=== PATIENT | female | born 1995 | race Caucasian/White ===

== ENCOUNTER 2021-02-18 21:00 | Emergency (ER) | payer SELFPAY ==
--- OUTSIDE RECORDS SUMMARY | 2021-02-18 21:06 | XMS REPORT | Continuity of Care Document ---
:1995 Author Organization [facility] t Address [address] [place] [address] Care Team Providers Name Role Phone Saucedo Attending Clinician Unavailable Micki PATTON Attending Clinician Unavailable Brisa LAUREANO Attending Clinician Unavailable SCAR Attending Clinician Unavailable Nurse, Urgent Attending Clinician Unavailable Scar MORRISON Attending Clinician Jonas Attending Clinician Dafne T[employer] WORKER Attending Clinician Rory MORRISON Attending Clinician Teqwimuabrisa DO Attending Clinician Singer MENDOZA Attending Clinician Germaine MORRISON Attending Clinician Thien MORRISON Attending Clinician Brianna HUIZAR Attending Clinician Unavailable CHELA COFFEY Attending Clinician Unavailable Liz TAPIA Attending Clinician Unavailable EDWARD SEWELL Attending Clinician Unavailable Chase Valadez Attending Clinician Unavailable Physician, Primary or Family Admitting Clinician Unavailabimael Valadez MD Admitting Clinician Thien MORRISON Admitting Clinician CHELA COFFEY Admitting Clinician Unavailable Gt Quiñones Admitting Clinician Unavailable Payers Payer Name Policy Type Policy Number Effective Date Expiration Date [place] [facility] [id number] 2017 CHOICE MEDICAID 00:00:00 BCBS [facility] - [id number] 2017 OUT OF STATE 00:00:00 Problems Condition Condition Condition Status Onset Resolution Last Treating Co mments Source Name Details Category Date Date Treatment Clinician Date Abdominal Abdominal Disease Active Uni vers pain pain 6-25 ity of 00:00: [place] [facility] Intractabl Intractabl Disease Active U nivers e pain e pain 5-12 ity of 00:00: [place] 00 Medical Branch Status Status Disease Active 2018- Univers post post 2-12 ity of repeat low repeat [place] 00:[place] transverse transverse 00 Me dical Branch section section Status Status Disease Active 2018- Univers post tubal post tubal 2-12 it y of ligation ligation 00:00: [place] at time of at time of 00 Me dical delivery, delivery, Bran ch current current hospitaliz hospitaliz ation ation 39 weeks 39 weeks Disease Active Unive rs gestation gestation 2-12 ity of of of 00:00: [place] 00 [facility] Disease Active Uni vers complicate complicate 2-12 it y of d by d by 00:00: [place] noncomplia noncomplia 00 Me dical nce, nce, Branch antepartum antepartum Maternal Maternal Disease Active Unive rs care due care due 2-11 ity of to low to low 00:00: [place] transverse transverse 00 Me dical uterine uterine Branch scar from scar from previous previous delivery delivery Generalize Generalize Disease Active 2019-0 U nivers d d 1-18 [place] abdominal abdominal [place] 00 [place] Nausea & Nausea & Disease Active 2018- Unive rs vomiting vomiting 1-18 ity of 00:00: [place] 00 Medical Branch 35 weeks 35 weeks Disease Active 2019- Unive rs gestation gestation 1-17 ity of of of 00:00: [place] 00 Medi juan daniel Branch Back pain Back pain Disease Active 2019-0 Uni vers affecting affecting 1-17 [place] of [place] in third in third 00 Medica l trimester trimester Bran ch Gastroesop Gastroesop Disease Active 2019-0 U nivers hageal hageal 1-17 ity of reflux reflux 00:00: [place] during during 00 Medical Bran ch in third in third trimester, trimester, antepartum antepartum Previous Previous Disease Active 2019-0 Unive rs 1-15 ity of delivery delivery 00:00: [place] affecting affecting 00 [facility] Bran ch Disease Active 2019-0 Univers uterine uterine 1-15 ity of contractio contractio 00:[place] 00 Medical Branch Multiparit Multiparit Disease Active 2019-0 U nivers y y 1-15 ity of 00:00: [place] [address] Medical Branch Insufficie Insufficie Disease Active 2019-0 U nivers nt nt 1-15 ity of 00:00: [place] care in care in 00 Medical third third Branch trimester trimester Obesity Obesity Disease Active 2018- Univers (BMI (BMI 2-17 ity of 30-39.9) 30-39.9) 00:00: [place] 00 Medical Branch Lower Lower Disease Active 2018-0 Univers abdominal abdominal 6-20 ity of pain pain 00:00: [place] 00 Medical Branch Nausea and Nausea and Disease Active 2018-0 U nivers vomiting vomiting 6-20 ity of 00:00: [place] [address] Medical Branch Allergies, Adverse Reactions, Alerts Allergy Allergy Status Severity Reaction(s) Onset Inactive Treating Comm ents Source Name Type Date Date Clinician No Known DA Active U [facility]-05 Clear s 00:00: [place] 00 [facility] No Known DA Active U 0 [facility] Allergie 5-05 Clear s 00:00: [place] 00 [facility] No Known DA Active U 2020-0 [facility] Allergie 2- Clear s 00:00: [place] 00 [facility] No Known DA Active U 0 [facility] Allergie 2-01 Clear s 00:00: [place] 00 [facility] No Known DA Active U [facility] Allergie 8-03 Clear s 00:00: [place] 00 [facility] No Known DA Active U [facility] Allergie 8-03 Clear s 00:00: [place] 00 [facility] NO KNOWN Drug Active Univers ALLERGIE Class ity of S [facility] Social History Social Habit Start Date Stop Date Quantity Comments Source Exposure to Not sure [facility]-CoV-2 [facility] (event) [place] Tobacco Comment 2020-08-09 2020-08-09 4-5 ocassionally Uni versity of 00:00:00 00:00:00 per day [facility] Tobacco use and 2020-08-09 2020-08-09 Never used Universit y of exposure 00:00:00 00:00:00 [facility] Alcohol intake 2020-08-09 2020-08-09 Current drinker of Un iversity of 00:00:00 00:00:00 alcohol (finding) [facility] Sex Ass[birth year] At [birth year] Universit y of 00:00:00 00:00:00 [facility] Smoking Status Start Date Stop Date Source Current some day smoker 2020-08-09 00:00:00 [facility] ersity of [facility] Never smoker [facility] Medications Ordered Filled Start Stop Current Ordering Indication Dosage Frequency Signature Comments Components Source Medication Medication Date Date Medication? Clinician (SIG) Name Name SERTraline Yes 50mg 50 mg, Unive rs (ZOLOFT) 08-10 Oral, ity of tablet 50 14:00: DAILY, [place] mg 00 First dose Medical on Sat Branch 08/10/20 at 0900, Until Discontinu ed, Routine morpHINE Yes 2mg 2 mg, Slow Uni vers injection 2 08-10 IV Push, ity of mg 02:04: Q4HPRN, [place] 48 Starting Medical Fri Branch 08/09/20 at 2104, Until Discontinu ed, Routine, Pain (scale 7-10) pantoprazol Yes 40mg 40 mg, Univ ers e 08-10 Slow IV ity of (PROTONIX) 01:00: Push, [place] injection 00 Q12H, Medical 40 mg First dose Branch (after last reorder) on Wed08/09/20 at 2000, Until Discontinu ed, Routine carvediloL Yes 6.25mg 6.25 mg, U nivers (COREG) 6-25 Oral, BID ity of tablet 6.25 22:00: MEALS, [place] mg 00 First dose Medical on Wed Branch 08/09/20 at 1700, Until Discontinu ed, Routine sucralfate 0 Yes 1g 1 g, Oral, U nivers (CARAFATE) 08-09 AC+HS, ity of tablet 1 g 21:30: First dose [place] 00 on Wed Medical 08/09/20 at Branch 1630, Until Discontinu ed, Routine NaCl 0.9% 0 2020- No 1000mL at 125 Uni vers (NS) IV 08-09 06-26 mL/hr, IV ity of infusion 20:00: 02:08 Infusion, [place] 1,000 mL 00 :45 CONTINUOUS Medic al , Starting Branch 08/09/20 at 1500, Until Wed08/09/20 at 2108, Routine ondansetron Yes 4mg 4 mg, Slow Univers (ZOFRAN 08-09 IV Push, ity of (PF)) 19:55: Q6HPRN, [place] injection 4 19 Starting Medi juan daniel mg Fri Branch 08/09/20 at 1455, Until Discontinu ed, Routine, Nausea and Vomiting (N/V) HYDROcodone 0 2020- No 1{tbl} 1 tablet, Univers -acetaminop 08-09 Oral, ity of hen (NORCO 19:55: 19:54 Q6HPRN, [place] 5) 5-325 mg 10 :10 Starting Medi juan daniel tablet 1 Fri Branch tablet 08/09/20 at 1455, Until 08/11/20 at 1454, Routine, Pain (scale 4-6) acetaminoph 0 Yes 650mg 650 mg, Un kimmy en 08-09 Oral, ity of (TYLENOL) 19:55: Q6HPRN, [place] tablet 650 03 Starting Medic al mg Fri Branch 08/09/20 at 1455, Until Discontinu ed, Routine, Pain (scale 1-3) dicyclomine 0 Yes 10mg 10 mg, Univ ers (BENTYL) 08-09 Oral, ity of capsule 10 19:47: Q8HPRN, [place] mg 15 Starting Medical Fri Branch 08/09/20 at 1447, Until Discontinu ed, Routine, Abdominal pain cyclobenzap 2021-0 Yes 5mg 5 mg, Unive rs rine 08-09 Oral, ity of (FLEXERIL) 19:47: Q8HPRN, [place] tablet 5 mg 12 Starting Medi juan daniel Fri Branch 08/09/20 at 1447, Until Discontinu ed, Routine, Muscle Spasms, back pain proMETHazin 2020- No 12.5mg 12.5 mg, Univers e 08-09 IV ity of (PHENERGAN) 19:45: 19:45 Piggyback, [place] 12.5 mg in 00 :00 ONCE, 1 Medica l NaCl 0.9% dose, Fri Branc h (NS) 50 mL 08/09/20 at piggyback 1445, 50 mL diphenhydrA 2020- No 25mg 25 mg, Uni vers MINE 08-09 Slow IV ity of (BENADRYL) 19:15: 19:15 Push, [place] injection 00 :00 ONCE, 1 Medical 25 mg dose, Fri Branch 08/09/20 at 1415, STAT iopamidol 2020- No [id number] 100mL 100 mL, Univers (ISOVUE 08-09 Intravenou ity o f 370-500 mL) 19:15: 17:55 s, ONCE, 1 [place] injection 00 :00 dose, Fri Medic al 100 mL 08/09/20 at Branch 1415, Routine pantoprazol 2020- No 40mg 40 mg, Uni vers e 08-09 Slow IV ity of (PROTONIX) 18:45: 18:46 Push, [place] injection 00 :00 ONCE, 1 Medical 40 mg dose, Fri Branch 08/09/20 at 1345, [place] morpHINE 2020- No 4mg 4 mg, Slow Un kimmy injection 4 08-09 IV Push, ity of mg 18:45: 18:46 ONCE, 1 [place] 00 :00 dose, Wed Medical 08/09/20 at Branch 1345, STAT LORazepam 2020- No 1mg 1 mg, Slow U nivers (ATIVAN) 08-09 IV Push, ity of injection 1 17:15: 16:46 ONCE, 1 [place] mg 00 :00 dose, Fri Medical 08/09/20 at Branch 1215, STAT dicyclomine Yes 20mg 20 mg, Univ ers (BENTYL) 08-09 Intramuscu ity o f injection 17:00: lar, QID, [place] as 20 mg 00 First dose Medical on Wed [place] 08/09/20 at 1200, Until Discontinu ed, Routine ketorolac 2020- No 30mg 30 mg, Unive rs (TORADOL) 08-09 Intramuscu ity of injection 16:30: 17:34 lar, ONCE, [place] 30 mg 00 :00 1 dose, Medical Wed [place] 08/09/20 at 1130, WILMAN
Fa culty member approving Restricted medication : SAGE LEOS metoclopram 2020- No 10mg 10 mg, Uni vers toni HCl 08-09 Slow IV ity of (REGLAN) 16:15: 16:47 Push, [place] injection 00 :00 ONCE, 1 Medical 10 mg dose, Wed [place] 08/09/20 at 1115, WILMAN pantoprazol 2020- No 40mg 40 mg, Uni vers e 08-09 Slow IV ity of (PROTONIX) 16:15: 16:46 Push, [place] injection 00 :00 ONCE, 1 Medical 40 mg dose, Wed [place] 08/09/20 at 1115, WILMAN NaCl 0.9% 2020- No 1000mL at 999 Uni vers (NS) bolus 08-09 mL/hr, ity of infusion 16:15: 17:34 1,000 mL, [place] 1,000 mL 00 :00 IV Medical Infusion, Branch ONCE, 1 dose, Wed08/09/20 at 1115, [place] dicyclomine Yes 10mg 10 mg, Univ ers (BENTYL) 16 Oral, QID, ity o f capsule 10 13:00: First dose [place] mg 00 on Wed [facility] 07/31/20 at Branch 0800, Until Discontinu ed, Routine haloperidol 2020- No 2.5mg 2.5 mg, U nivers lactate 07-31-16 Intravenou ity o f (HALDOL) 05:30: 04:21 s, ONCE, 1 [place] injection 00 :00 dose, Wed Medic al 2.5 mg 07/31/20 at Branch 0030, STAT ketorolac 2020- No 15mg 15 mg, Unive rs (TORADOL) 07-31 Slow IV ity of injection 05:00: 04:59 Push, Q6H, [place] 15 mg 00 :00 4 doses, Medical First dose Branch on Wed07/31/20 at 0000, Last dose on Wed07/31/20 at 1800, Routine
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 Restricted medication : RODO YUN diphenhydrA 2020- No 50mg 50 mg, Uni vers MINE 07-31 Slow IV ity of (BENADRYL) 04:00: 02:55 Push, [place] injection 00 :00 ONCE, 1 Medical 50 mg dose, [facility] 07/30/20 at 2300, STAT haloperidol 2020- No 2.5mg 2.5 mg, U nivers lactate 07-31 Intravenou ity o f (HALDOL) 03:45: 02:55 s, ONCE, 1 [place] injection 00 :00 dose, [facility] Medic al 2.5 mg 07/30/20 at Branch 2245, STAT sodium Yes 5mL 5 mL, Univers chloride 07-31 Intravenou ity o f (NS) 02:39: s, PRN, [place] injection 5 06 Starting Medi juan daniel mL [facility] 07/30/20 at 2139, Until Discontinu ed, Routine, IV line flushing sucralfate Yes [id number] 1g Take 1 Univers 1 gram 6-16 tablet by ity of tablet 00:00: mouth [place] 00 before Medical meals and Branch at bedtime. dicyclomine Yes [id number] 10mg Take 1 Univers 10 mg 6-16 capsule by ity of capsule 00:00: mouth [place] 00 every 8 Medical (eight) Branch hours as needed for Abdominal pain. ondansetron Yes [id number] 4mg Take 1 Univers 4 mg 6-16 tablet by ity of disintegrat 00:00: mouth [place] ing tablet 00 every 8 Medica l (eight) Branch hours as needed for Nausea and Vomiting (N/V). ciprofloxac 2020-0 Yes [id number] 500mg Take 1 Univers in HCl 500 6-16 tablet by ity of mg tablet 00:00: mouth (two) Medical times Branch daily. metroNIDAZO 2020-0 Yes [id number] 500mg Take 1 Univers LE 500 mg 6-16 tablet by ity o f tablet 00:00: mouth (two) Medical times Branch daily. sucralfate 2020-0 Yes [id number] 1g Take 1 Univers 1 gram 6-16 tablet by ity of tablet 00:00: mouth 00 before Medical meals and Branch at bedtime. dicyclomine 2020-0 Yes [id number] 10mg Take 1 Univers 10 mg 6-16 capsule by ity of capsule 00:00: mouth [place] 00 every 8 Medical (eight) Branch hours as needed for Abdominal pain. ondansetron 2020-0 Yes [id number] 4mg Take 1 Univers 4 mg 6-16 tablet by ity of disintegrat 00:00: mouth [place] ing tablet 00 every 8 Medica l (eight) Branch hours as needed for Nausea and Vomiting (N/V). ciprofloxac 2020-0 Yes [id number] 500mg Take 1 Univers in HCl 500 6-16 tablet by ity of mg tablet 00:00: mouth (two) Medical times Branch daily. metroNIDAZO 2020-0 Yes [id number] 500mg Take 1 Univers LE 500 mg 6-16 tablet by ity o f tablet 00:00: mouth (two) Medical times Branch daily. sucralfate 2020-0 Yes [id number] 1g Take 1 Univers 1 gram 6-16 tablet by ity of tablet 00:00: mouth [place] 00 before Medical meals and Branch at bedtime. dicyclomine 2020-0 Yes [id number] 10mg Take 1 Univers 10 mg 6-16 capsule by ity of capsule 00:00: mouth [place] 00 every 8 Medical (eight) Branch hours as needed for Abdominal pain. ondansetron 2020-0 Yes [id number] 4mg Take 1 Univers 4 mg 6-16 tablet by ity of disintegrat 00:00: mouth [place] ing tablet 00 every 8 Medica l (eight) Branch hours as needed for Nausea and Vomiting (N/V). ciprofloxac 2020-0 Yes [id number] 500mg Take 1 Univers in HCl 500 6-16 tablet by ity of mg tablet 00:00: mouth (two) Medical times Branch daily. metroNIDAZO 2020-0 Yes [id number] 500mg Take 1 Univers LE 500 mg 6-16 tablet by ity o f tablet 00:00: mouth (two) Medical times Branch daily. sucralfate 2020-0 Yes [id number] 1g Take 1 Univers 1 gram 6-16 tablet by ity of tablet 00:00: mouth 00 before Medical meals and Branch at bedtime. dicyclomine 2020-0 Yes [id number] 10mg Take 1 Univers 10 mg 6-16 capsule by ity of capsule 00:00: mouth [place] 00 every 8 Medical (eight) Branch hours as needed for Abdominal pain. ondansetron 2020-0 Yes [id number] 4mg Take 1 Univers 4 mg 6-16 tablet by ity of disintegrat 00:00: mouth [place] ing tablet 00 every 8 Medica l (eight) Branch hours as needed for Nausea and Vomiting (N/V). ciprofloxac 2020-0 Yes [id number] 500mg Take 1 Univers in HCl 500 6-16 tablet by ity of mg tablet 00:00: mouth (two) Medical times Branch daily. metroNIDAZO 2020-0 Yes [id number] 500mg Take 1 Univers LE 500 mg 6-16 tablet by ity o f tablet 00:00: mouth (two) Medical times Branch daily. sucralfate 2020-0 Yes [id number] 1g Take 1 Univers 1 gram 6-16 tablet by ity of tablet 00:00: mouth [place] 00 before Medical meals and Branch at bedtime. dicyclomine 2020-0 Yes [id number] 10mg Take 1 Univers 10 mg 6-16 capsule by ity of capsule 00:00: mouth [place] 00 every 8 Medical (eight) Branch hours as needed for Abdominal pain. ondansetron 2020-0 Yes [id number] 4mg Take 1 Univers 4 mg 6-16 tablet by ity of disintegrat 00:00: mouth [place] ing tablet 00 every 8 Medica l (eight) Branch hours as needed for Nausea and Vomiting (N/V). ciprofloxac Yes [id number] 500mg Take 1 Univers in HCl 500 6-16 tablet by ity of mg tablet 00:00: mouth 2 [place] 00 (two) Medical times Branch daily. metroNIDAZO Yes [id number] 500mg Take 1 Univers LE 500 mg 6-16 tablet by ity o f tablet 00:00: mouth 2 [place] (two) Medical times Branch daily. SERTraline Yes 50mg 50 mg, Unive rs (ZOLOFT) 5-13 Oral, ity of tablet 50 14:00: DAILY, [place] mg 00 First dose Medical on [facility] Branch 06/27/20 at 0900, Until Discontinu ed, Routine omeprazole Yes 20mg 20 mg, Unive rs (PRILOSEC) 5-13 Oral, ity of capsule 20 14:00: DAILY, [place] mg 00 First dose Medical on [facility] Branch 06/27/20 at 0900, Until Discontinu ed, Routine ondansetron Yes 4mg 4 mg, Slow Univers (ZOFRAN 5-13 IV Push, ity of (PF)) 03:02: Q4HPRN, [place] injection 4 34 Starting Medi juan daniel mg Wed Branch 06/26/20 at 2202, Until Discontinu ed, Routine, Nausea and Vomiting (N/V) ketorolac 15mg 15 mg, Unive rs (TORADOL) 5-13 05-13 Slow IV ity of injection 00:31: 18:42 Push, [place] 15 mg 14 :00 Q6HPRN, 4 Medical doses, Branch Starting 06/26/20 at 1931, Until Discontinu ed, Routine, Pain (scale 7-10)
F aculty member approving Restricted medication : HOSREDCLC HYDROcodone Yes 1{tbl} 1 tablet, Univers -acetaminop 5-13 Oral, ity of hen (NORCO) 00:30: Q4HPRN, [place] 10-325 mg 38 Starting Medica l tablet 1 Wed Branch tablet 06/26/20 at 1930, Until Discontinu ed, Routine, Pain (scale 4-6) carvediloL Yes [id number] 6.25mg Take 1 Univers 6.25 mg 5-13 tablet by ity of tablet 00:00: mouth [place] (two) Medical times Branch daily with meals. carvediloL 2020-0 Yes [id number] 6.25mg Take 1 Univers 6.25 mg 5-13 tablet by ity of tablet 00:00: mouth 2 (two) Medical times Branch daily with meals. carvediloL 2020-0 Yes [id number] 6.25mg Take 1 Univers 6.25 mg 5-13 tablet by ity of tablet 00:00: mouth [place] (two) Medical times Branch daily with meals. carvediloL 2020-0 Yes [id number] 6.25mg Take 1 Univers 6.25 mg 5-13 tablet by ity of tablet 00:00: mouth [place] (two) Medical times Branch daily with meals. carvediloL 2020-0 Yes [id number] 6.25mg Take 1 Univers 6.25 mg 5-13 tablet by ity of tablet 00:00: mouth [place] (two) Medical times Branch daily with meals. carvediloL 2020-0 Yes [id number] 6.25mg Take 1 Univers 6.25 mg 5-13 tablet by ity of tablet 00:00: mouth [place] (two) Medical times Branch daily with meals. NaCl 0.9% 0 Yes 1000mL at 125 Univ ers (NS) IV 5-12 mL/hr, IV ity of infusion 20:00: Infusion, [place] 1,000 mL 00 CONTINUOUS Medic al , Starting Branch Wed06/26/20 at 1500, Until Discontinu ed, Routine carvediloL 2020-0 Yes 6.25mg 6.25 mg, U nivers (COREG) 5-12 Oral, BID ity of tablet 6.25 19:45: MEALS, [place] mg 00 First dose Medical on Wed Branch 06/26/20 at 1445, Until Discontinu ed, Routine cyclobenzap 2020-0 Yes 5mg 5 mg, Unive rs rine 5-12 Oral, ity of (FLEXERIL) 19:39: Q8HPRN, [place] tablet 5 mg 44 Starting Medi juan daniel Wed Branch 06/26/20 at 1439, Until Discontinu ed, Routine, Muscle Spasms, back pain bisacodyL 2020-0 Yes 10mg 10 mg, Univer s (DULCOLAX) 06-26 Rectal, ity of suppository 19:39: QDAILYPRN, [place] 10 mg 44 Starting Medical [facility] 06/26/20 at 1439, Until Discontinu ed, Routine, Constipati on HYDROcodone 2020- No 1{tbl} 1 tablet, Univers -acetaminop 06-26 Oral, ity of hen (NORCO 19:30: 18:46 ONCE, 1 [place] 5) 5-325 mg 00 :00 dose, Wed Med ical tablet 1 06/26/20 at [facility] tablet 1430, [place] morpHINE 2020- No 4mg 4 mg, Slow Un kimmy injection 4 06-26 IV Push, ity of mg 18:30: 18:47 ONCE, 1 [place] 00 :00 dose, [facility] 06/26/20 at Branch 1330, STAT proMETHazin 2020- No 12.5mg 12.5 mg, Univers e 06-26 IV ity of (PHENERGAN) 17:15: 18:19 Piggyback, [place] 12.5 mg in 00 :00 ONCE, 1 Medica l NaCl 0.9% dose, [facility] h (NS) 50 mL 06/26/20 at piggyback 1215, 50 mL iopamidol 2020- No [id number] 100mL 100 mL, Univers (ISOVUE 06-26 Intravenou ity o f 370-500 mL) 16:45: 16:45 s, ONCE, 1 [place] injection 00 :00 dose, [facility] Medic al 100 mL 06/26/20 at Branch 1145, Routine morpHINE 2020- No 6mg 6 mg, Slow Un kimmy injection 6 06-26 IV Push, ity of mg 16:15: 16:35 ONCE, 1 [place] 00 :00 dose, [facility] 06/26/20 at Branch 1115, STAT ketorolac 2020- No 15mg 15 mg, Unive rs (TORADOL) 06-26 Slow IV ity of injection 16:00: 15:20 Push, [place] 15 mg 00 :00 ONCE, 1 Medical dose, [facility] 06/26/20 at 1100, WILMAN
Fa culty member approving Restricted medication : DWAIN MENDEZ lactated 2020- No 1000mL at 999 [facility] ers ringers IV 06-26 mL/hr, ity of infusion 15:45: 14:45 1,000 mL, [place] 1,000 mL 00 :00 Intravenou Medic al s, ONCE, 1 Branch dose, 06/26/20 at 1045, Routine ondansetron 2020- No 4mg 4 mg, Slow Univers (ZOFRAN 06-26 IV Push, ity of (PF)) 14:45: 15:01 Administer [place] injection 4 00 :00 over 15 Medic al mg Minutes, Branch ONCE, 1 dose, 06/26/20 at 0945, STAT famotidine 2020- No 20mg 20 mg, Univ ers (PEPCID 06-26 Intravenou ity o f (PF)) 14:45: 14:50 s, ONCE, 1 [place] injection 00 :00 dose, Wed Medic al 20 mg 06/26/20 at Branch 0945, WILMAN SERTraline Yes [id number] 50mg Take 1 U nivers (ZOLOFT) 50 2-25 tablet by ity of mg tablet 00:00: mouth [place] 00 daily. [facility] Branch SERTraline Yes [id number] 50mg Take 1 U nivers (ZOLOFT) 50 2-25 tablet by ity of mg tablet 00:00: mouth [place] 00 daily. [facility] Branch SERTraline Yes [id number] 50mg Take 1 U nivers (ZOLOFT) 50 2-25 tablet by ity of mg tablet 00:00: mouth [place] 00 daily. [facility] Branch SERTraline Yes [id number] 50mg Take 1 U nivers (ZOLOFT) 50 2-25 tablet by ity of mg tablet 00:00: mouth [place] 00 daily. [facility] Branch SERTraline Yes [id number] 50mg Take 1 U nivers (ZOLOFT) 50 2-25 tablet by ity of mg tablet 00:00: mouth [place] 00 daily. [facility] Branch SERTraline Yes [id number] 50mg Take 1 U nivers (ZOLOFT) 50 2-25 tablet by ity of mg tablet 00:00: mouth [place] 00 daily. Medical Branch ibuprofen 0 Yes [id number] 600mg Take 1 Univers 600 mg 2-13 tablet by ity of tablet 00:00: mouth [place] 00 every 6 Medical (six) Branch hours as needed for Pain (scale 1-3) or Pain (scale 4-6) (Pain). Take with food or milk. HYDROcodone Yes [id number] 1{tbl} Take 1-2 Univers -acetaminop 2-13 tablets by it y of hen 5-325 00:00: mouth [place] mg tablet 00 every 6 Medical (six) Branch hours as needed for Pain (scale 4-6) (Pain scale above 4). ibuprofen Yes [id number] 600mg Take 1 Univers 600 mg 2-13 tablet by ity of tablet 00:00: mouth [place] 00 every 6 Medical (six) Branch hours as needed for Pain (scale 1-3) or Pain (scale 4-6) (Pain). Take with food or milk. HYDROcodone Yes [id number] 1{tbl} Take 1-2 Univers -acetaminop 2-13 tablets by it y of hen 5-325 00:00: mouth [place] mg tablet 00 every 6 Medical (six) Branch hours as needed for Pain (scale 4-6) (Pain scale above 4). HYDROcodone Yes [id number] 1{tbl} Take 1-2 Univers -acetaminop 2-13 tablets by it y of hen 5-325 00:00: mouth [place] mg tablet 00 every 6 Medical (six) Branch hours as needed for Pain (scale 4-6) (Pain scale above 4). HYDROcodone Yes [id number] 1{tbl} Take 1-2 Univers -acetaminop 2-13 tablets by it y of hen 5-325 00:00: mouth [place] mg tablet 00 every 6 Medical (six) Branch hours as needed for Pain (scale 4-6) (Pain scale above 4). HYDROcodone Yes [id number] 1{tbl} Take 1-2 Univers -acetaminop 2-13 tablets by it y of hen 5-325 00:00: mouth [place] mg tablet 00 every 6 Medical (six) Branch hours as needed for Pain (scale 4-6) (Pain scale above 4). HYDROcodone Yes [id number] 1{tbl} Take 1-2 Univers -acetaminop 2-13 tablets by it y of hen 5-325 00:00: mouth [place] mg tablet 00 every 6 Medical (six) Branch hours as needed for Pain (scale 4-6) (Pain scale above 4). ibuprofen 2020- No [id number] 600mg Take 1 Univers 600 mg 2-13 06-27 tablet by ity of tablet 00:00: 00:00 mouth [place] 00 :00 every 6 Medical (six) Branch hours as needed for Pain (scale 1-3) or Pain (scale 4-6) (Pain). Take with food or milk. cyclobenzap Yes [id number] 5mg Take 0.5 Univers rine 10 mg 1-19 tablets by ity of tablet 00:00: mouth [place] 00 every 8 Medical (eight) Branch hours as needed for Muscle Spasms (back pain). Do not drive while taking this medication bisacodyl Yes [id number] 10mg Insert 1 Univers 10 mg 1-19 Suppositor ity of suppository 00:00[facility] Medical once daily Branch as needed for Constipati on. cyclobenzap Yes [id number] 5mg Take 0.5 Univers rine 10 mg 1-19 tablets by ity of tablet 00:00: mouth [place] 00 every 8 Medical (eight) Branch hours as needed for Muscle Spasms (back pain). Do not drive while taking this medication bisacodyl Yes [id number] 10mg Insert 1 Univers 10 mg 1-19 Suppositor ity of suppository 00:00: [facility] Medical once daily Branch as needed for Constipati on. cyclobenzap Yes [id number] 5mg Take 0.5 Univers rine 10 mg 1-19 tablets by ity of tablet 00:00: mouth [place] 00 every 8 Medical (eight) Branch hours as needed for Muscle Spasms (back pain). Do not drive while taking this medication bisacodyl Yes [id number] 10mg Insert 1 Univers 10 mg 1-19 Suppositor [place] of suppository [place] rectum [place] once daily Branch as needed for Constipati on. cyclobenzap Yes [id number] 5mg Take 0.5 Univers rine 10 mg 1-19 tablets by ity of tablet 00:00: mouth [place] 00 every 8 Medical (eight) Branch hours as needed for Muscle Spasms (back pain). Do not drive while taking this medication bisacodyl Yes [id number] 10mg Insert 1 Univers 10 mg 1-19 Suppositor ity of suppository 00:00: [facility] Medical once daily Branch as needed for Constipati on. cyclobenzap Yes [id number] 5mg Take 0.5 Univers rine 10 mg 1-19 tablets by ity of tablet 00:00: mouth [place] 00 every 8 Medical (eight) Branch hours as needed for Muscle Spasms (back pain). Do not drive while taking this medication bisacodyl Yes [id number] 10mg Insert 1 Univers 10 mg 1-19 Suppositor ity of suppository 00:00: [facility] Medical once daily Branch as needed for Constipati on. cyclobenzap Yes [id number] 5mg Take 0.5 Univers rine 10 mg 1-19 tablets by ity of tablet 00:00: mouth [place] 00 every 8 Medical (eight) Branch hours as needed for Muscle Spasms (back pain). Do not drive while taking this medication bisacodyl Yes [id number] 10mg Insert 1 Univers 10 mg 1-19 Suppositor ity of suppository 00:00: y into [facility] 00 rectum Medical once daily Branch as needed for Constipati on. omeprazole Yes [id number] 20mg Take 1 Univers 20 mg 1-17 capsule by ity of capsule 00:00: mouth [place] 00 daily. Medical Branch omeprazole Yes [id number] 20mg Take 1 Univers 20 mg 1-17 capsule by ity of capsule 00:00: mouth [place] 00 daily. Medical Branch omeprazole Yes [id number] 20mg Take 1 Univers 20 mg 1-17 capsule by ity of capsule 00:00: mouth [place] 00 daily. Medical Branch omeprazole Yes [id number] 20mg Take 1 Univers 20 mg 1-17 capsule by ity of capsule 00:00: mouth [place] 00 daily. Medical [place] omeprazole 2019-0 Yes [id number] 20mg Take 1 Univers 20 mg 1-17 capsule by ity of capsule 00:00: mouth 00 daily. [facility] omeprazole 2019-0 Yes [id number] 20mg Take 1 Univers 20 mg 1-17 capsule by ity of capsule 00:00: mouth 00 daily. [facility] Immunizations Ordered Filled Immunization Date Status Comments [facility] e Immunization Name Name Influenza Virus 2013-06-08 Completed Universit y of Vaccine (3+ yrs) 00:00:00 [facility] Influenza Virus 2013-06-08 Completed Universit y of Vaccine (3+ yrs) 00:00:00 [facility] Influenza Virus 2013-06-08 Completed Universit y of Vaccine (3+ yrs) 00:00:00 [facility] Influenza Virus 2013-06-08 Completed Universit y of Vaccine (3+ yrs) 00:00:00 [facility] Influenza Virus 2013-06-08 Completed Universit y of Vaccine (3+ yrs) 00:00:00 [facility] Influenza Virus 2013-06-08 Completed Universit y of Vaccine (3+ yrs) 00:00:00 [facility] Vital Signs Vital Name Observation Time Observation Value Comments Source Systolic blood 2020-08-11 16:17:00 103 [facility] Diastolic blood 2020-08-11 16:17:00 54 mm[Hg] Unive rsity of [facility] Heart rate 2020-08-11 16:17:00 55 /min [facility] Body temperature 2020-08-11 16:17:00 36.94 Eileen [facility] 2020-08-11 16:17:00 16 /min [facility] Oxygen saturation in 2020-08-11 16:17:00 97 /min [facility] Arterial blood by [facility] Pulse oximetry [place] Body height 2020-08-09 20:21:00 162.6 cm [facility] Body weight 2020-08-09 20:21:00 95.437 kg [facility] BMI 2020-08-09 20:21:00 36.12 kg/m2 [facility] Systolic blood 2020-07-31 07:55:00 126 mm[Hg] Univer sity of pressure [facility] Diastolic blood 2020-07-31 07:55:00 77 mm[Hg] Unive rsity of pressure [facility] Heart rate 2020-07-31 07:55:00 102 /min Universi ty of [facility] Respiratory rate 2020-07-31 07:55:00 17 /min Univ ersity of [facility] Oxygen saturation in 2020-07-31 07:55:00 99 /min University of Arterial blood by [facility] Pulse oximetry Branch Body temperature 2020-07-31 02:36:00 36.44 Eileen Univ ersity of [facility] Body weight 2020-07-31 02:32:00 104.327 kg Universi ty of [facility] BMI 2020-07-31 02:32:00 40.74 kg/m2 Universi ty of [facility] Systolic blood 2020-06-27 20:24:00 128 mm[Hg] Univer sity of [facility] Branch Diastolic blood 2020-06-27 20:24:00 77 mm[Hg] Unive rsity of pressure [facility] Heart rate 2020-06-27 20:24:00 85 /min Universi ty of [facility] Body temperature 2020-06-27 20:24:00 37.22 Eileen Univ ersity of [facility] Respiratory rate 2020-06-27 20:24:00 18 /min Univ ersity of [facility] Oxygen saturation in 2020-06-27 20:24:00 96 /min University of Arterial blood by [facility] Pulse oximetry Branch Body height 2020-06-26 14:33:00 160 cm Universi ty of [facility] Body weight 2020-06-26 14:33:00 104.327 kg Universi ty of [facility] [place] [facility] BMI 2020-06-26 14:33:00 40.74 kg/m2 Universi of [facility] Procedures Procedure Date / Time Performing Clinician Source Performed BASIC METABOLIC PANEL 2020-08-10 09:14:00 James Cruz [facility] (NA, K, CL, CO2, Medical Branch GLUCOSE, BUN, CREATININE, CA) CBC WITH DIFF 2020-08-10 09:14:00 [place], [facility] CT ABDOMEN PELVIS W 2020-08-09 18:00:00 Dafne [facility] CONTRAST [facility] Branch COVID-19 (ID NOW RAPID 2020-08-09 17:41:00 Dafne [facility] TESTING) Medical Branch US PELVIS COMPLETE WITH 2020-08-09 17:20:[address] [facility] TRANSVAGINAL Medical Branch AMYLASE 2020-08-09 16:46:00 Dafne [facility] LIPASE 2020-08-09 16:46:00 Dafne [facility] TEST, SERUM 2020-08-09 16:46:00 Dafne [facility] HEPATIC FUNCTION PANEL 2020-08-09 16:46:00 [employer] [facility] ([id number]) (ALB,T.PRO,BILI [facility] T,BU/BC,ALT,AST,ALK PHOS) BASIC METABOLIC PANEL 2020-08-09 16:46:00 Dafne [facility] (NA, K, CL, CO2, Medical Branch GLUCOSE, BUN, CREATININE, CA) CBC WITH DIFF 2020-08-09 16:46:00 Dafne [facility] US OVARY TORSION 2020-07-31 06:12:59 Singer [facility] [place] [facility] CT ABDOMEN PELVIS WO 2020-07-31 03:31:19 Singer [facility] Branch LIPASE 2020-07-31 02:41:[address] [facility] COMP. METABOLIC PANEL 2020-07-31 02:41:00 Singer [facility] ([id number]) Medical Branch CBC WITH DIFF 2020-07-31 02:41:[address] [facility] URINALYSIS 2020-07-31 02:41:[address] [facility] POCT TEST 2020-07-31 02:41:00 Singer Rodo [facility] COVID-19 (ID NOW RAPID 2020-06-26 18:53:00 Dwain Mendez [facility] TESTING) Medical Branch US OVARY TORSION 2020-06-26 17:39:53 Germaine [facility] CT ABDOMEN PELVIS W 2020-06-26 15:39:18 Germaine [facility] CONTRAST [facility] URINE DRUG (IMMUNOASSAY) 2020-06-26 14:51:00 Dwain Mendez [facility] SCREEN URINALYSIS 2020-06-26 14:51:00 Germaine [facility] EXTRA TUBE URINE CULTURE 2020-06-26 14:51:00 Germaine [facility] POCT TEST 2020-06-26 14:41:00 Germaine [facility] LIPASE 2020-06-26 14:36:00 Germaine [facility] TEST, SERUM 2020-06-26 14:36:[facility]EL 2020-06-26 14:36:[address] [facility] ([id number]) [facility] T,BU/BC,ALT,AST,ALK PHOS) BASIC METABOLIC PANEL 2020-06-26 14:36:00 [facility] (NA, K, CL, CO2, [facility] GLUCOSE, BUN, CREATININE, CA) ETHANOL 2020-06-26 14:36:00 Germaine [facility] CBC WITH DIFF 2020-06-26 14:36:00 [facility] Encounters Start End Encounter Admission Attending Care Care Encounter Source Date/Time Date/Time Type Type Clinicians Facility Department ID 2020-12-16 Emergency [facility] [id number] Univers 03:51:54 [facility] 2020-12-16 Emergency [facility] [id number] Univers 01:28:53 [facility] 2020-12-15 Emergency [facility] [id number] Univers 18:36:19 [facility] 2020-06-19 [place] [facility] [place] [id number] [facility] 23:16:00 [id number] [facility] 2020-04-15 In[place] [facility] [place] [id number] [facility] 11:44:00 [id number] [facility] 2020-03-18 Inpatient [facility] [place] [id number] [facility] 10:31:00 [id number] [facility] 2021-01-03 2021-01-03 Emergency EM John Saucedo [facility] AERS [id number] [facility] 11:01:00 12:15:00 [id number] [facility] 2021-01-03 2021-01-03 Emergency EM John Saucedo [facility] [id number] [facility] 11:01:00 11:01:00 80 [facility] 2020-10-02 2020-10-02 Letter TORIBIO Sweet [id number] Univers 00:00:00 00:00:00 (Out) Susan JOSEPH [id number] ity [facility] 4.2.7.2.686 Michael as [id number] [address] 2020-10-01 2020-10-01 Outpatient R [facility] [id number] Univers 18:30:00 18:30:00 [id number] [facility] 2020-10-01 2020-10-01 Outpatient R GEORGI [facility] [id number] Univers 18:30:00 18:30:00 CHIP [facility] 2020-09-30 2020-09-30 Outpatient R [facility] [id number] Univers 19:00:00 19:00:00 [id number] [facility] 2020-09-30 2020-09-30 Outpatient R SCAR [facility] [id number] Univers 19:00:00 19:00:00 HILDA [facility] 2020-09-30 2020-09-30 Laboratory Nurse, Jalyn Zamarripa 1.2.8 [id number] Univers 18:26:09 18:41:09 Only Hilda Byrne Pediatric 350.1.1 3.10 ity of [place] [id number] [facility] [address] [facility] 2020-08-13 2020-08-13 Transition Anny Mcdaniel [id number] Univers 00:00:00 00:00:00 of Care Belen Tang 350.1.13.10 ity [place] 4[place]7.2.686 [place] [id number] [facility] 403 Branch 2020-08-09 2020-08-11 Hospital Sage Leos [facility] [[email or web address]] [id number] Univers 11:09:00 13:46:00 Encounter Riley [facility] [id number] ity of [place] 4.2.7.2.686 [place] [id number] [facility] 113 Branch ([facility]) 2020-07-30 2020-07-31 Emergency Singer [facility] [[email or web address]] [id number] Univers 21:29:00 03:04:00 Rodo Hathaway 350.1.13.10 i ty of [place] 4[place].2.686 [place] [id number] [facility] 084 Branch 2020-06-26 2020-06-27 Emergency Germaine Dwain [facility] [[email or web address]] [id number] Univers 09:30:00 16:26:00 Neumann, [facility] 350.1.13.10 ity of [place] [phone] [facility] 116 Branch ([facility]) 2020-06-04 2020-06-04 Emergency E KEIKO HUIZAR SE [id number] 08:48:00 13:30:[address] [facility] 2020-05-22 2020-05-23 Outpatient E SJ COFFEY [facility] [id number] MH 23:50:00 12:22:[address] [facility] 2020-05-17 2020-05-17 Emergency E TORIBIO TAPIA SE [id number] 15:42:00 20:39:[address] [facility] 2019-09-19 2019-09-20 Emergency E MELODIE, MHSE MHSE [id number] 20:41:00 13:53:[address] [facility] 2019-02-15 2019-02-15 Emergency E MHSE MHSE [id number] 18:56:00 18:56:00 Kedar alvarado [facility] 2019-02-12 2019-02-12 Emergency NALLELY Alonzo [id number] [facility] 09:29:00 11:14:00 Safi [id number] [facility] Results Test Description Test Time Test Comments Results Result Comments Source AG STREP GROUP A (THROAT) 2021-01-03 11:43:00 Test Item Value Reference Range Interpretation Comme nts AG STREP GROUP A (THROAT) NEGATIVE Negative Pe rformed by certified almond blancher operator at (test code = STREPA) [facility] Strep-A is a rapid, instru ment-based, molecular invitro diagnos tic test utilizing isothermal nucl eic acidamplification technology for the qualitative detection ofStr eptococcus pyogenes Basic Metabolic Panel (NA, K, CL, CO2, GLUCOSE, BUN, CREATININE, CA)2020-08-10 09:43:46 Test Item Value Reference Range Interpretation Comments NA (test code = 136 mmol/L 135-145 8279749231) K (test code = 3.8 mmol/L 3.5-5.0 7495448686) CL (test code = 105 mmol/L 98-108 0974035852) CO2 TOTAL (test code 24 mmol/L 23-31 = 2578843713) AGAP (test code = 2-16 3470137137) BUN (test code = 14 mg/dL 7-23 2744807950) GLUCOSE (test code = 97 mg/dL 70-110 3405108180) CREATININE (test code 0.50 mg/dL 0.50-1.04 = 2631097558) CALCIUM (test code = 8.7 mg/dL 8.6-10.6 2873627693) eGFR (test code = mL/min/1.73m2 4534207709) LEYDI (test code = LEYDI) Association of Glomerular Filtration Rate (GFR) and Staging of Kidney Disease* + + +- +| GFR (mL/min/1.73 m2) ?| With Kidney Damage ?| ?Without Kidney Damage+ ------+ ----+ ------+| ?>90 ?| ?Stage one ?| ? Normal ?+ -+ + -+| ?60-89 ?| ?Stage two ?| ? Decreased GFR ? + + +- +| ?30-59 ?| ?Stage three ?| ? Stage three ? + + +- +| ?15-29 ?| ?Stage four ? | ? Stage four ?+ -+ + -+| ?<15 (or dialysis) ? ?| ?Stage five ? | ? Stage five ?+ -+ + -+ *Each stage assumes the associated GFR level has been in effect for at least three months. ?Stages 1 to 5, with or without kidney disease, indicate chronic kidney disease. Notes: Determination of stages one and two (with eGFR >59mL/min/1.73 m2) requires estimation of kidney damage for at least three months as defined by structural or functional abnormalities of the kidney, manifested by either:Pathological abnormalities or Markers of kidney damage (including abnormalities in the composition of the blood or urine or abnormalities in imaging tests). [facility] with [id number] 09:28:27 Test Item Value Reference Range Interpretation Comments WBC (test code = See_Comment H [Automated 9709-2) message] The sy stem which generated this result transmitted reference range : 4.30 - 11.10 10*3/?L. The reference range was not used to interpret this result as normal/abnormal . RBC (test code = See_Comment [Automated 334-8) message] The sy stem which generated this result transmitted reference range : 3.93 - 5.25 10*6/?L. The reference range was not used to interpret this result as normal/abnormal . HGB (test code = 13.2 g/dL 11.6-15.0 718-7) HCT (test code = 39.5 % 35.7-45.2 4544-3) MCV (test code = 91.0 fL 80.6-95.5 787-2) MCH (test code = 30.4 pg 25.9-32.8 785-6) MCHC (test code = 33.4 g/dL 31.6-35.1 786-4) RDW-SD (test code = 50.1 fL 39.0-49.9 H 37023-5) RDW-CV (test code = 15.1 % 12.0-15.5 788-0) PLT (test code = See_Comment [Automated 777-3) message] The sy stem which generated this result transmitted reference range : 166 - 358 10*3/ ?L. The reference r kasi was not used to interpret this result as normal/abnormal . MPV (test code = 10.3 fL 9.5-12.9 89406-6) NRBC/100 WBC (test See_Comment [Automat ed code = 1910055532) message] The system which generated this result transmitted reference range : 0.0 - 10.0 /100 WBCs. The refer ence range was not u sed to interpret th is result as normal/abnormal . NRBC x10^3 (test code <0.01 See_Comment [Auto mated = 5567544988) message] The s ystem which generated this result transmitted reference range : 10*3/?L. The reference range was not used to interpret this result as normal/abnormal . GRAN MAT (NEUT) % 71.7 % (test code = 770-8) IMM GRAN % (test code 0.20 % = 4951631018) LYMPH % (test code = 19.5 % 736-9) MONO % (test code = 7.1 % 5905-5) EOS % (test code = 1.0 % 713-8) BASO % (test code = 0.5 % 706-2) GRAN MAT x10^3(ANC) 8.99 10*3/uL 1.88-7.09 H (test code = 8918091766) IMM GRAN x10^3 (test 0.03 10*3/uL 0.00-0.06 code = 2567697619) LYMPH x10^3 (test code 2.45 10*3/uL 1.32-3.29 = 731-0) MONO x10^3 (test code 0.89 10*3/uL 0.33-0.92 = 742-7) EOS x10^3 (test code = 0.12 10*3/uL 0.03-0.39 711-2) BASO x10^3 (test code 0.06 10*3/uL 0.01-0.07 = 704-7) Lab Interpretation Abnormal (test code = 42182-8) [facility] [id number] 18:30:081. Fluid-filled loops of small bowel and mesenteric lymph nodes mayrepresent enteritis.2. Mild hepatomegaly EXAM: CT scan of the abdomen and pelvis with contrast HISTORY: Abdominal pain, acute, nonlocalized; TECHNIQUE:3.75 mm axial images are obtained from diaphragmatic domes tosymphysis pubis following intravenous administration of 100 mL Isovue-370.Sagittal and coronal reformation is carried out. COMPARISON: 07/30/2020 Radiation Dose: DLP of 1260 mGy-cm. FINDINGS: The lung bases are clear. No pleural effusion is present. Heart size isnormal. Liver is enlarged in size and measures approximately 19.2 cm incraniocaudad dimensions. No abnormal enhancement is identified within theliver. Gallbladder is normal. No calcified gallstones are seen. No bileduct dilation is appreciated. Pancreas enhances normally. No ductaldilation is seen. Spleen is normal in size. Adrenal glands are normal. No adrenal nodules are seen. Kidneys are normal in size shape and appearance and demonstrate bilaterallysymmetriccontrast enhancement. No renal stone or hydronephrosis is noted. Abdominal aorta is normal in caliber. There is no free fluid or free air inthe abdomen. Prominent lymph nodes are seen at the root of the mesentery, notsignificantly changed since the prior study. Bowel loops are normal in caliber. Fluid-filled loops of small bowel areseen. Appendix is normal. There is no evidence of bowel obstruction. The uterus and the urinary bladder grossly normal. Fluid in the endometrialcavity is likely related to phase of the menstrual cycle. A dominantfollicle is seen in the left ovary. [facility], Radiant Results Inft User - 08/09/2020 1:31 PM CDT EXAM: CT scan of the abdomen and pelvis with contrastHISTORY: Abdominal pain, acute, nonlocalized;TECHNIQUE:3.75 mm axial images are obtained from diaphragmatic domes tosymphysis pubis following intravenous administration of 100 mL Isovue-370.Sagittal and coronal reformation is carried out.COMPARISON: 1Radiation Dose: DLP of 1260 mGy-cm. FINDINGS:The lung bases are clear. No pleural effusion is present. Heart size isnormal.Liver is enlarged in size and measures approximately 19.2 cm incraniocaudad dimensions. No abnormal enhancement is identified within theliver. Gallbladder is normal. No calcified gallstones are seen. No bileduct dilation is appreciated. Pancreas enhances normally. No ductaldilation is seen. Spleen is normal in size.Adrenal glands are normal. No adrenal nodules are seen.Kidneysare normal in size shape and appearance and demonstrate bilaterallysymmetric contrast enhancement. No renal stone or hydronephrosis is noted.Abdominal aorta is normal in caliber. There is no free fluidor free air inthe abdomen.Prominent lymph nodes are seen at the root of the mesentery, notsignificantly changed since the prior study.Bowel loops are normal in caliber. Fluid-filled loops of small bowel areseen. Appendix is normal. There is no evidence of bowel obstruction.The uterus and the urinary bladder grossly normal. Fluid in the endometrialcavity is likely related to phase of the menstrual cycle. A dominantfollicle is seen in the left ovary.IMPRESSION1. Fluid-filled loops of small bowel and mesenteric lymph nodes mayrepresent enteritis.2. Mild hepatomegalyUnThe [facility] [place] [facility] (ID NOW RAPID TESTING)2020-08-09 18:00:00 Test Item Value Reference Range Interpretation Comments SARS-CoV-2 Rapid ID NOW Not Detected Not Detected (test code = 35433-0) LEYDI (test code = LEYDI) ID NOW COVID-19 Assay is an isothermal nucleic acid amplification test intended for the qualitative detection of nucleic acid from SARS-CoV-2 viral RNA in nasopharyngeal (FIRE 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 It is used under Emergency Use Authorization (EUA) by FDA. The limit of detection (LOD) of the assay is 125 Genome Equivalents/mL. A positive result is indicative of the presence of SARS-CoV-2 RNA. ?Clinical correlation with patient history and other diagnostic information is necessary to determine patient infection status. A negative (Not Detected) result does not preclude SARS-CoV-2 infection. In patients with clinical symptoms and other tests that are consistent with SARS-CoV-2 infection, negative results should be treated as presumptive negative and a new specimen should be tested with alternative PCR molecular test. Invalid: Please collect a new specimen for repeat patient testing if clinically indicated. Lab Interpretation Normal (test code = 42596-3) [facility] Pelvic Complete W/ [id number] 17:43:02 No acute pelvic abnormality. Simple appearing left ovarian cyst measuring2.1 cm. RL: 7000 Patient name: RONNIE VILLARREALB: 1995 25years EXAMINATION: US PELVIS COMPLETE WITH TRANSVAGINAL Ordering Physician: SAGE LEOS CLINICAL HISTORY:r/o torsion . Pain. COMPARISON:None TECHNIQUE:Transabdominal and transvaginal grayscale, spectral Doppler, and colorDoppler images of the pelvis performed. The technique of this examinationis adequate. FINDINGS:The uterus is normal in echogenicity and size measuring 9.9 x 4.6 x 5.4 cm.No discrete fibroids. The endometrium is homogeneous and normal inthickness measuring 11 mm. No endometrial lesions or discrete endometrialfluid. Cervix is normal. The right ovary is normal in echogenicity and size measuring 4.1 x 3.0 x2.7 cm. Normal Doppler flow. No suspicious lesions. The left ovary is normal in echogenicity and size measuring 3.5 x 2.8 x 2.8cm. Normal Doppler flow. No suspicious lesions. Simple cyst left ovarymeasures 2.1 cm. No significant pelvic free fluid. [facility], Radiant Results Inft User - 08/09/2020 12:44 PM CDT Patient name: RONNIE VILLARREALB: 1995 25 years EXAMINATION: US PELVIS COMPLETE WITH TRANSVAGINALOrdering Physician: SAGE LEOS CLINICAL HISTORY:r/o torsion . Pain.COMPARISON:NoneTECHNIQUE:Transabdominal and transvaginal grayscale, spectral Doppler, and colorDoppler images of the pelvis performed. The technique of this examinationis adequate.FINDINGS:The uterus is normal in echogenicity and size measuring 9.9 x 4.6 x 5.4 cm.No discrete fibroids. The endometrium is homogeneous and normal inthickness measuring 11 mm. No endometrial lesions or discrete endometrialfluid. Cervix is normal.The right ovaryis normal in echogenicity and size measuring 4.1 x 3.0 x2.7 cm. Normal Doppler flow. No suspicious lesions.The left ovary is normal in echogenicity and size measuring 3.5 x 2.8 x 2.8cm. Normal Doppler flow. No suspicious lesions. Simple cyst left ovarymeasures 2.1 cm.No significant pelvic free fluid.IMPRESSIONNo acute pelvic abnormality. Simple appearing left ovarian cyst measuring2.1 cm.RL: [id number] ronically signed by Primo Remy at 08/09/2020 12:43 PMUnThe [facility] Health [facility] CampusHepatic Function Panel (ALB, T.PRO, BILI T, BU/BC, ALT, AST, ALK PHOS)2020-08-09 17:12:34 Test Item Value Reference Range Interpretation Comments TOTAL BILI (test code = 6158524148) 0.1 mg/dL 0.1-1.1 BILI UNCON (test code = 4502536723) 0.0 mg/dL 0.1-1.1 L BILI CONJ (test code = 6244105429) 0.0 mg/dL 0.0-0.3 T PROTEIN (test code = 8003989631) 7.1 g/dL 6.3-8.2 ALBUMIN (test code = 3368672140) 4.5 g/dL 3.5-5.0 ALK PHOS (test code = 8264925299) 52 U/L 34-122 ALTv (test code = 1742-6) 21 U/L 5-35 AST(SGOT) (test code = 7729620499) 21 U/L 13-40 Lab Interpretation (test code = Abnormal 94598-9) [facility] CenterLipase [id number] 17:12:34 Test Item Value Reference Range Interpretation Comments LIPASE (test code = 7593057270) 45 U/L 0-220 Lab Interpretation (test code = Normal 67721-1) [facility] CenterAmylase [id number] 17:12:34 Test Item Value Reference Range Interpretation Comments YOHANA (test code = 7102051093) 73 U/L 35-110 Lab Interpretation (test code = Normal 31073-0) [facility] Metabolic Panel (NA, K, CL, CO2, GLUCOSE, BUN, CREATININE, CA)2020-08-09 17:12:33 Test Item Value Reference Range Interpretation Comments NA (test code = 135 mmol/L 135-145 0144789475) K (test code = 4.1 mmol/L 3.5-5.0 1731172916) CL (test code = 104 mmol/L 98-108 0655263165) CO2 TOTAL (test code = 22 mmol/L 23-31 L 2169885844) AGAP (test code = 2-16 4159919944) BUN (test code = 24 mg/dL 7-23 H 0274015997) GLUCOSE (test code = 106 mg/dL 70-110 7469204903) CREATININE (test code = 0.68 mg/dL 0.50-1.04 4192335261) CALCIUM (test code = 10.1 mg/dL 8.6-10.6 4419037963) eGFR (test code = mL/min/1.73m2 4922755678) LEYDI (test code = LEYDI) Association of Glomerular Filtration Rate (GFR) and Staging of Kidney Disease* + --+ --+ ------+| GFR (mL/min/1.73 m2) ?| With Kidney Damage ?| ?Without Kidney Damage+ --------+ --------+ +| ?>90 ?| ?Stage one ?| ? Normal ?+ ---+ ---+ -------+| ?60-89 ?| ?Stage two ?| ? Decreased GFR ? + --+ --+ ------+| ?30-59 ?| ?Stage three ?| ? Stage three ? + --+ --+ ------+| ?15-29 ?| ?Stage four ? | ? Stage four ?+ ---+ ---+ -------+| ?<15 (or dialysis) ? ?| ?Stage five ? | ? Stage five ?+ ---+ ---+ -------+ *Each stage assumes the associated GFR level has been in effect for at least three months. ?Stages 1 to 5, with or without kidney disease, indicate chronic kidney disease. Notes: Determination of stages one and two (with eGFR >59mL/min/1.73 m2) requires estimation of kidney damage for at least three months as defined by structural or functional abnormalities of the kidney, manifested by either:Pathological abnormalities or Markers of kidney damage (including abnormalities in the composition of the blood or urine or abnormalities in imaging tests). Lab Interpretation Abnormal (test code = 48296-9) [facility] CenterPregnancy Test, [id number] 17:09:54 Test Item Value Reference Range Interpretation Comments PREG SERUM (test code Negative = 3321720666) LEYDI (test code = LEYDI) Less than 10 IU/L. ?If low titer or ectopic is suspected, resubmit specimen in 48-72 hours. [facility] CenterCBC with [id number] 17:01:51 Test Item Value Reference Range Interpretation Comments WBC (test code = See_Comment H [Automated 3033-2) message] The system which generated this result transmit ramirez reference range : 4.30 - 11.10 10*3/?L. The reference range was not used to interpret this result as normal/abnormal . RBC (test code = See_Comment [Automated 179-8) message] The system which generated this result transmit ramirez reference range : 3.93 - 5.25 10*6/?L. The reference range was not used to interpret this result as normal/abnormal . HGB (test code = 14.1 g/dL 11.6-15.0 718-7) HCT (test code = 41.0 % 35.7-45.2 4544-3) MCV (test code = 89.1 fL 80.6-95.5 787-2) MCH (test code = 30.7 pg 25.9-32.8 785-6) MCHC (test code = 34.4 g/dL 31.6-35.1 786-4) RDW-SD (test code = 48.8 fL 39.0-49.9 13689-7) RDW-CV (test code = 15.1 % 12.0-15.5 788-0) PLT (test code = See_Comment H [Automated 037-3) message] The system which generated this result transmit ramirez reference range : 166 - 358 10*3/ ?L. The reference range was not u sed to interpret th is result as normal/abnormal . MPV (test code = 10.4 fL 9.5-12.9 02685-7) NRBC/100 WBC (test See_Comment [Automat ed code = 5532144697) message] The system which generated this result transmit ramirez reference range : 0.0 - 10.0 /100 WBCs. The reference range was not used to interpret this result as normal/abnormal . NRBC x10^3 (test code <0.01 See_Comment [Auto mated = 2339507928) message] The system which generated this result transmit ramirez reference range : 10*3/?L. The reference range was not used to interpret this result as normal/abnormal . GRAN MAT (NEUT) % 75.8 % (test code = 770-8) IMM GRAN % (test code 0.40 % = 0123131894) LYMPH % (test code = 17.0 % 736-9) MONO % (test code = 5.2 % 5905-5) EOS % (test code = 1.1 % 713-8) BASO % (test code = 0.5 % 706-2) GRAN MAT x10^3(ANC) 12.61 10*3/uL 1.88-7.09 H (test code = 6017243819) IMM GRAN x10^3 (test 0.07 10*3/uL 0.00-0.06 H code = 4365122466) LYMPH x10^3 (test code 2.82 10*3/uL 1.32-3.29 = 731-0) MONO x10^3 (test code 0.86 10*3/uL 0.33-0.92 = 742-7) EOS x10^3 (test code = 0.19 10*3/uL 0.03-0.39 711-2) BASO x10^3 (test code 0.08 10*3/uL 0.01-0.07 H = 704-7) Lab Interpretation Abnormal (test code = 60408-4) [facility] CenterUS OVARY [id number] 07:41:05 Normal pelvic ultrasound. RL: 460 AFC: [id number] Electronically signed by Lainey Goddard MD, PhD at07/31/2020 2:41 AMOrdering physician: RODO YUN INDICATION: Pelvic pain COMPARISON: None TECHNIQUE: Grayscale and Doppler images of the pelvis were performed via atransabdominal and endovaginal approach. FINDINGS: The uterus measures 10.4 x 3.4 x 5.8 cm. The endometrium iswithin normal limits at 5mm. The right ovary measures 3.1 x 3.5 x 1.8 cmand the left ovary measures 2.8 x 2.1 x 1.9 cm. Thereis normal colorDoppler flow in the ovaries bilaterally, with normal spectral Dopplerwaveforms. No adnexal mass or free fluid is appreciated. [facility], Radiant Results Inft User - 07/31/2020 2:42 AM CDT Ordering physician: RODO HECATION: Pelvic painCOMPARISON: NoneTECHNIQUE: Grayscale and Doppler images of the pelvis were performed via atransabdominal and endovaginal approach.FINDINGS: The uterus measures 10.4 x 3.4 x 5.8 cm. The endometrium iswithin normal limits at 5 mm. The right ovary measures 3.1 x 3.5 x 1.8 cmand the left ovary measures 2.8 x 2.1 x 1.9 cm. There is normal colorDoppler flow in the ovaries bilaterally, with normal spectral Dopplerwaveforms. No adnexal mass or free fluid is appreciated.IMPRESSIONNormal pelvic ultrasound.RL: 460AFC: [id number] signed by Lainey Goddard MD, PhD at 07/31/2020 2:41 AMG[facility] Medical CenterUrinalysis 2020-07-31 03:01:21 Test Item Value Reference Range Interpretation Comments APPEARANCE (test code = Cloudy Clear A 8551691574) COLOR (test code = Yellow Yellow 6810855071) PH (test code = 4.8-8.0 4587085950) SP GRAVITY (test code = 1.003-1.030 4674100562) GLU U QUAL (test code = Normal Normal 3360210428) BLOOD (test code = Negative Negative 1917046051) KETONES (test code = 20 mg/dL Negative A 4590811739) PROTEIN (test code = 500 mg/dL Negative A 2887-8) UROBILIN (test code = Normal Normal 1948719980) BILIRUBIN (test code = Negative Negative 0006205028) NITRITE (test code = Negative Negative 6556330798) [place] (test code = Negative Negative 0887690070) RBC/HPF (test code = <1 See_Comment [Autom ated message] 9991014835) The system [employer] generated this result transmit ramirez reference range : 0 - 3 HPF. The refe rence range was not u sed to interpret th is result as normal/abnormal . WBC/HPF (test code = <1 See_Comment [Autom ated message] 8215953887) The system [employer] generated this result transmit ramirez reference range : 0 - 5 HPF. The refe rence range was not u sed to interpret th is result as normal/abnormal . BACTERIA (test code = Few Negative A 2809881455) MUCOUS (test code = Moderate Negative LPF A 2538497623) SQ EPITH (test code = HPF 0498165922) HYAL CAST (test code = See_Comment H [Aut omated message] 5933496281) The system [employer] generated this result transmit ramirez reference range : <=2 LPF. The refere nce range was not u sed to interpret th is result as normal/abnormal . GRAN CASTS (test code = See_Comment H [Au tomated message] 8406392510) The system [employer] generated this result transmit ramirez reference range : <=1 LPF. The refere nce range was not u sed to interpret th is result as normal/abnormal . Lab Interpretation (test Abnormal code = 44829-9) [facility] CenterComplete Metabolic [id number] 02:58:36 Test Item Value Reference Range Interpretation Comments NA (test code = 139 mmol/L 135-145 9206161745) K (test code = 3.7 mmol/L 3.5-5.0 7651091391) CL (test code = 108 mmol/L 98-108 1521267310) CO2 TOTAL (test code = 18 mmol/L 23-31 L 2742963125) AGAP (test code = 2-16 6969276335) BUN (test code = 20 mg/dL 7-23 9972737284) GLUCOSE (test code = 150 mg/dL 70-110 H 9081385804) CREATININE (test code = 0.70 mg/dL 0.50-1.04 7652316283) TOTAL BILI (test code = 0.4 mg/dL 0.1-1.4 9923850676) CALCIUM (test code = 10.2 mg/dL 8.6-10.6 8496411599) T PROTEIN (test code = 8.0 g/dL 6.3-8.2 2325281389) ALBUMIN (test code = 5.0 g/dL 3.5-5.0 9719194227) ALK PHOS (test code = 54 U/L 34-122 0632170121) ALTv (test code = 42 U/L 5-35 H 1742-6) AST(SGOT) (test code = 35 U/L 13-40 7090470248) eGFR (test code = mL/min/1.73m2 3315360712) LEYDI (test code = LEYDI) Association of Glomerular Filtration Rate (GFR) and Staging of Kidney Disease* + --+ --+ ------+| GFR (mL/min/1.73 m2) ?| With Kidney Damage ?| ?Without Kidney Damage+ --------+ --------+ +| ?>90 ?| ?Stage one ?| ? Normal ?+ ---+ ---+ -------+| ?60-89 ?| ?Stage two ?| ? Decreased GFR ? + --+ --+ ------+| ?30-59 ?| ?Stage three ?| ? Stage three ? + --+ --+ ------+| ?15-29 ?| ?Stage four ? | ? Stage four ?+ ---+ ---+ -------+| ?<15 (or dialysis) ? ?| ?Stage five ? | ? Stage five ?+ ---+ ---+ -------+ *Each stage assumes the associated GFR level has been in effect for at least three months. ?Stages 1 to 5, with or without kidney disease, indicate chronic kidney disease. Notes: Determination of stages one and two (with eGFR >59mL/min/1.73 m2) requires estimation of kidney damage for at least three months as defined by structural or functional abnormalities of the kidney, manifested by either:Pathological abnormalities or Markers of kidney damage (including abnormalities in the composition of the blood or urine or abnormalities in imaging tests). Lab Interpretation Abnormal (test code = 51171-8) [facility] CenterLipase, [id number] 02:58:36 Test Item Value Reference Range Interpretation Comments LIPASE (test code = 4784478170) 32 U/L 0-220 Lab Interpretation (test code = Normal 55359-1) [facility] CenterCB with [id number] 02:50:55 Test Item Value Reference Range Interpretation Comments WBC (test code = See_Comment H [Automated 6690-2) message] The system which generated this result transmit ramirez reference range : 4.30 - 11.10 10*3/?L. The reference range was not used to interpret this result as normal/abnormal . RBC (test code = See_Comment [Automated 789-8) message] The system which generated this result transmit ramirez reference range : 3.93 - 5.25 10*6/?L. The reference range was not used to interpret this result as normal/abnormal . HGB (test code = 13.3 g/dL 11.6-15.0 718-7) HCT (test code = 39.5 % 35.7-45.2 4544-3) MCV (test code = 88.2 fL 80.6-95.5 787-2) MCH (test code = 29.7 pg 25.9-32.8 785-6) MCHC (test code = 33.7 g/dL 31.6-35.1 786-4) RDW-SD (test code = 47.3 fL 39.0-49.9 96265-0) RDW-CV (test code = 14.6 % 12.0-15.5 788-0) PLT (test code = See_Comment H [Automated 777-3) message] The system which generated this result transmit ramirez reference range : 166 - 358 10*3/ ?L. The reference range was not u sed to interpret th is result as normal/abnormal . MPV (test code = 10.5 fL 9.5-12.9 11333-5) NRBC/100 WBC (test See_Comment [Automat ed code = 7723633184) message] The system which generated this result transmit ramirez reference range : 0.0 - 10.0 /100 WBCs. The reference range was not used to interpret this result as normal/abnormal . NRBC x10^3 (test code <0.01 See_Comment [Auto mated = 2614322016) message] The system which generated this result transmit ramirez reference range : 10*3/?L. The reference range was not used to interpret this result as normal/abnormal . GRAN MAT (NEUT) % 81.7 % (test code = 770-8) IMM GRAN % (test code 0.60 % = 0064921516) LYMPH % (test code = 11.9 % 736-9) MONO % (test code = 5.3 % 5905-5) EOS % (test code = 0.1 % 713-8) BASO % (test code = 0.4 % 706-2) GRAN MAT x10^3(ANC) 14.62 10*3/uL 1.88-7.09 H (test code = 5582650211) IMM GRAN x10^3 (test 0.10 10*3/uL 0.00-0.06 H code = 6094645650) LYMPH x10^3 (test code 2.12 10*3/uL 1.32-3.29 = 731-0) MONO x10^3 (test code 0.94 10*3/uL 0.33-0.92 H = 742-7) EOS x10^3 (test code = <0.03 0.03-0.39 L 711-2) BASO x10^3 (test code 0.08 10*3/uL 0.01-0.07 H = 704-7) Lab Interpretation Abnormal (test code = 00781-3) [facility] CenterPOCT [id number] 02:41:00 Test Item Value Reference Range Interpretation Comments POCT PREG (test code = 1605) negative On board controls acceptable with present C Line (test code = 3574) POCT PREG LOT # (test code = 3575) [id number] POCT PREG TEST DATE (test 2022-01-14 code = 3576) Lab Interpretation (test code = Normal 49312-3) [facility] CenterCOVID-19 (ID NOW RAPID TESTING)2020-06-26 19:27:50 Test Item Value Reference Range Interpretation Comments SARS-CoV-2 Rapid ID NOW Not Detected Not Detected (test code = 66016-6) LEYDI (test code = LEYDI) ID NOW COVID-19 Assay is an isothermal nucleic acid amplification test intended for the qualitative detection of nucleic acid from SARS-CoV-2 viral RNA in nasopharyngeal (FIRE 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 It is used under Emergency Use Authorization (EUA) by FDA. The limit of detection (LOD) of the assay is 125 Genome Equivalents/mL. A positive result is indicative of the presence of SARS-CoV-2 RNA. ?Clinical correlation with patient history and other diagnostic information is necessary to determine patient infection status. A negative (Not Detected) result does not preclude SARS-CoV-2 infection. In patients with clinical symptoms and other tests that are consistent with SARS-CoV-2 infection, negative results should be treated as presumptive negative and a new specimen should be tested with alternative PCR molecular test. Invalid: Please collect a new specimen for repeat patient testing if clinically indicated. Lab Interpretation Normal (test code = 66387-5) [facility] OVARY [id number] 17:56:15PELVIC ULTRASOUND FOR OVARIAN TORSION HISTORY: ?torsion of rt ovary?; TECHNIQUE: Transabdominal and transvaginal sonographic evaluation of theuterus and adnexa is performed. FINDINGS: The uterus is normal in size, shape and echotexture. The uterusmeasures 10.0 x 4.4 x 5.5 cm. ?No focal lesions are present within theuterus. The endometrial stripe is normal and measures 15 mm. Right ovary measures 3.8x 2.3 x 2.8 cm with volume of 12.8 mL. The ovarydemonstrates normal arterial and venous waveform. Left ovary measures 2.2 x1.6 x 1.9 cm and demonstrates normal arterial and venous waveform. No free fluid is seen in the cul-de-sac. CONCLUSION:1. Right ovary is slightly enlarged in size compared to the left, howeverit demonstrates normal arterial and venous waveform. Ovarian torsion isless likely.2. Evaluation of the CT scan performed earlier as well as a CT scanperformed in 2013 the right ovary appears to be abutting the terminal ileumgoing as far back as 2013. Also the current CT in the CT scan from 2013demonstrates collapsed colon that was previously suggested to be colitis. BRITNI consult may be helpful for further evaluation since this patient has hadsymptoms for many years.[facility], Radiant Results Inft User - 06/26/2020 12:57 PM CDTPELVIC ULTRASOUND FOR OVARIAN TORSIONHISTORY: torsion of rt ovary? ;TECHNIQUE: Transabdominal and transvaginal sonographic evaluation of theuterus and adnexa is performed.FINDINGS: The uterus is normal in size, shape and echotexture. The uterusmeasures 10.0 x 4.4 x 5.5 cm. No focal lesions are present within theuterus. The endometrial stripe is normal and measures 15 mm. Right ovary measures 3.8 x 2.3 x 2.8 cm with volume of 12.8 mL. The ovarydemonstrates normal arterial and venous waveform. Left ovary measures 2.2 x1.6 x 1.9 cm and demonstrates normal arterial and venous waveform.No free fluid is seen in the cul-de-sac.CONCLUSION:1. Right ovary is slightly enlarged in size compared to the left, howeverit demonstrates normal arterial and venous waveform. Ovariantorsion isless likely.2. Evaluation of the CT scan performed earlier as well as a CT scanperformed in 2013 the right ovary appears to be abutting the terminal ileumgoing as far back as 2013. Also the current CT in the CT scan from 2013demonstrates collapsed colon that was previously suggested to be colitis. BRITNI consult may be helpful for further evaluation since this patient has hadsymptoms for many years.[facility] CenterCT ABDOMEN PELVIS W [id number] 15:50:561. No acute abnormality of the abdomen or pelvis EXAM: CT scan of the abdomen and pelvis with contrast HISTORY: Nausea/vomiting TECHNIQUE:3.75 mm axial images are obtained from diaphragmatic domes tosymphysis pubis following intravenous administration of 100 mL ofIsovue- 370. Sagittal and coronal reformation is carried out. COMPARISON: CT scan of the abdomen and pelvis dated 06/06/2013 and MRI ofthe abdomen dated 03/04/2018 Radiation Dose: DLP of 2145 mGy-cm. FINDINGS: The lung bases are clear. No ple ural effusion is present. Heart size isnormal. Liver is normal in size shape and appearance. A focalarea of hypoechoicattenuation in segment 5 is most likely perfusional. Gallbladder is normal.No calcified gallstones are seen. No bile duct dilation is appreciated.Pancreas is normal. No ductal dilation is seen. No peripancreaticinflammatory changes are seen. Spleen is normal in size. Adrenal glands are normal. Kidneys are normal in size and shape. No renalstone or hydronephrosis is noted. Abdominal aorta is normal in caliber. There is no free fluid or free air inthe abdomen. A few nonspecific lymphnodes are seen at the root of themesentery. No evidence of bowel obstruction is seen. Appendix is nor mal. The colon ismostly collapsed. The uterus and the urinary bladder are grossly normal. No suspiciousabnormality of the bones is seen. Diastases of the rectus sheath is noted. [facility], Radiant Results Inft User - 06/26/2020 10:52 AM CDTEXAM: CT scan of the abdomen and pelvis with contrastHISTORY: Nausea /vomitingTECHNIQUE:3.75 mm axial images are obtained from diaphragmatic domes tosymphysis pubis following intravenous administration of 100 mL ofIsovue-370. Sagittal and coronal reformation is carried out.COMPARISON: CT scan of the abdomen and pelvis dated 06/06/2013 and MRI ofthe abdomen dated 9Radiation Dose: DLP of 2145 mGy-cm. FINDINGS:The lung bases are clear. No pleural effusion is present. Heart size isnormal.Liver is normal in size shape and appearance. A focal area of hypoechoicattenuation in segment 5 is most likely perfusional. Gallbladder is normal.No calcified gallstones are seen. No bile duct dilation is appreciated.Pancreas is normal. No ductal dilation is seen. No peripancreaticinflammatory changes are seen. Spleen is normal in size.Adrenal glands are normal. Kidneys are normal in size and shape. No renalstone or hydronephrosis is noted.Abdominal aorta is normal in caliber. There is no free fluid or free air inthe abdomen. A few nonspecific lymph nodes are seen at the root of themesentery.No evidence of bowel obstruction is seen. Appendix is normal. The colon ismostly collapsed.The uterus and the urinary bladder are grossly normal. No suspiciousabnormality of the bones is seen.Diastases of the rectus sheath is noted.IMPRESSION1. No acute abnormality of the abdomen or pelvisUnUniversity of [facility] PnuhhzPmsakwqwnr1686-27-28 15:36:50 Test Item Value Reference Range Interpretation Comments APPEARANCE (test code = Hazy Clear A 4101266299) COLOR (test code = Lena Yellow A 9870018698) PH (test code = 4.8-8.0 7986608003) SP GRAVITY (test code = 1.003-1.030 0614626947) GLU U QUAL (test code = Normal Normal 4671866056) BLOOD (test code = Negative Negative 5981116463) KETONES (test code = 20 mg/dL Negative A 8641663678) PROTEIN (test code = 100 mg/dL Negative A 2887-8) UROBILIN (test code = Normal Normal 0295868614) BILIRUBIN (test code = Negative Negative 2496671741) NITRITE (test code = Negative Negative 5610852249) [place] (test code = Negative Negative 4627239985) RBC/HPF (test code = See_Comment [Autom ated message] 7451527000) The system [employer] generated this result transmit ramirez reference range : 0 - 3 HPF. The refe rence range was not u sed to interpret th is result as normal/abnormal . WBC/HPF (test code = See_Comment [Autom ated message] 2612053007) The system [employer] generated this result transmit ramirez reference range : 0 - 5 HPF. The refe rence range was not u sed to interpret th is result as normal/abnormal . BACTERIA (test code = Few Negative A 0339585875) MUCOUS (test code = Marked Negative LPF A 2919266675) SQ EPITH (test code = See_Comment H [Auto mated message] 1663113130) The system [employer] generated this result transmit ramirez reference range : <=2 HPF. The refere nce range was not u sed to interpret th is result as normal/abnormal . Lab Interpretation (test Abnormal code = 03187-8) [facility] CenterURINE DRUG (IMMUNOASSAY) - COMPREHENSIVE DRUG [id number] 15:24:46 Test Item Value Reference Range Interpretation Comments AMPHET (test code = Negative Negative 1455874264) JAM U (test code = Negative Negative 5535617304) BENZO U (test code = Negative Negative 2220402156) Cocaine Metabolite (test Negative Negative code = 2354315385) METHADONE (test code = Negative Negative 2395369443) OPIATES (test code = Presumptive Positive Negative A 0804313226) PCP (test code = Negative Negative 0018051486) THC (test code = Negative Negative 4804535839) LEYDI (test code = LEYDI) Urine Drug Cutoff Ranges Cocaine: ? 150 ng/mLBenzodiazepines: ? ? 200 ng/mLMethadone: ? 300 ng/mLAmphetamine: ? 1,000 ng/mLOpiates: ? 300 ng/mLCannabinoids: ?50 ng/mLPhencyclidine: ? ? ? 25 ng/mLBarbiturates: ?200 ng/mL The results are to be used only for medical (i.e., treatment) purposes. Unconfirmed screening results must not be used for non-medical purposes (e.g., employment testing, legal testing). Lab Interpretation (test Abnormal code = 17247-8) [facility] CenterEthanol [id number] 14:59:12 Test Item Value Reference Range Interpretation Comments ALCOHOL (test code = <10 mg/dL 5283425231) LEYDI (test code = Toxic Greater than or LEYDI) equal to 80 mg/dL. NOTE: Whole blood values are approximately 10% to 15% lower than serum and plasma. [facility] CenterBanew horizons [facility] Met[facility] Panel (NA, K, CL, CO2, GLUCOSE, BUN, CREATININE, CA)2020-06-26 14:59:01 Test Item Value Reference Range Interpretation Comments NA (test code = 139 mmol/L 135-145 9028586817) K (test code = 4.2 mmol/L 3.5-5.0 5070942283) CL (test code = 107 mmol/L 98-108 8549202882) CO2 TOTAL (test code = 19 mmol/L 23-31 L 5829561618) AGAP (test code = 2-16 6405312118) BUN (test code = 14 mg/dL 7-23 0855184061) GLUCOSE (test code = 147 mg/dL 70-110 H 3559624821) CREATININE (test code = 0.56 mg/dL 0.50-1.04 4851079887) CALCIUM (test code = 10.5 mg/dL 8.6-10.6 8217965809) eGFR (test code = mL/min/1.73m2 4348566423) LEYDI (test code = LEYDI) Association of Glomerular Filtration Rate (GFR) and Staging of Kidney Disease* + --+ --+ ------+| GFR (mL/min/1.73 m2) ?| With Kidney Damage ?| ?Without Kidney Damage+ --------+ --------+ +| ?>90 ?| ?Stage one ?| ? Normal ?+ ---+ ---+ -------+| ?60-89 ?| ?Stage two ?| ? Decreased GFR ? + --+ --+ ------+| ?30-59 ?| ?Stage three ?| ? Stage three ? + --+ --+ ------+| ?15-29 ?| ?Stage four ? | ? Stage four ?+ ---+ ---+ -------+| ?<15 (or dialysis) ? ?| ?Stage five ? | ? Stage five ?+ ---+ ---+ -------+ *Each stage assumes the associated GFR level has been in effect for at least three months. ?Stages 1 to 5, with or without kidney disease, indicate chronic kidney disease. Notes: Determination of stages one and two (with eGFR >59mL/min/1.73 m2) requires estimation of kidney damage for at least three months as defined by structural or functional abnormalities of the kidney, manifested by either:Pathological abnormalities or Markers of kidney damage (including abnormalities in the composition of the blood or urine or abnormalities in imaging tests). Lab Interpretation Abnormal (test code = 47893-3) [facility] (ALB, T.PRO, BILI T, BU/BC, ALT, AST, ALK PHOS)2020-06-26 14:59:01 Test Item Value Reference Range Interpretation Comments TOTAL BILI (test code = 6195044979) 0.5 mg/dL 0.1-1.1 BILI UNCON (test code = 2174310704) 0.1 mg/dL 0.1-1.1 BILI CONJ (test code = 9849968789) 0.0 mg/dL 0.0-0.3 T PROTEIN (test code = 0948827014) 7.9 g/dL 6.3-8.2 ALBUMIN (test code = 3482261083) 5.0 g/dL 3.5-5.0 ALK PHOS (test code = 8674421061) 64 U/L 34-122 ALTv (test code = 1742-6) 19 U/L 5-35 AST(SGOT) (test code = 8438770715) 23 U/L 13-40 Lab Interpretation (test code = Normal 68377-4) [facility] CenterLipase [id number] 14:59:01 Test Item Value Reference Range Interpretation Comments LIPASE (test code = 1573705783) 115 U/L 0-220 Lab Interpretation (test code = Normal 40776-8) [facility] CenterPregnancy Test, [id number] 14:53:57 Test Item Value Reference Range Interpretation Comments PREG SERUM (test code Negative = 8909023748) LEYDI (test code = LEYDI) Less than 10 IU/L. ?If low titer or ectopic is suspected, resubmit specimen in 48-72 hours. [facility] CenterCBC with [id number] 14:48:21 Test Item Value Reference Range Interpretation Comments WBC (test code = See_Comment H [Automated 0787-2) message] The system which generated this result transmit ramirez reference range : 4.30 - 11.10 10*3/?L. The reference range was not used to interpret this result as normal/abnormal . RBC (test code = See_Comment [Automated 029-8) message] The system which generated this result transmit ramirez reference range : 3.93 - 5.25 10*6/?L. The reference range was not used to interpret this result as normal/abnormal . HGB (test code = 14.3 g/dL 11.6-15.0 718-7) HCT (test code = 41.3 % 35.7-45.2 4544-3) MCV (test code = 89.4 fL 80.6-95.5 787-2) MCH (test code = 31.0 pg 25.9-32.8 785-6) MCHC (test code = 34.6 g/dL 31.6-35.1 786-4) RDW-SD (test code = 49.4 fL 39.0-49.9 35372-4) RDW-CV (test code = 15.1 % 12.0-15.5 788-0) PLT (test code = See_Comment H [Automated 067-3) message] The system which generated this result transmit ramirez reference range : 166 - 358 10*3/ ?L. The reference range was not u sed to interpret th is result as normal/abnormal . MPV (test code = 10.5 fL 9.5-12.9 20603-1) NRBC/100 WBC (test See_Comment [Automat ed code = 0701626179) message] The system which generated this result transmit ramirez reference range : 0.0 - 10.0 /100 WBCs. The reference range was not used to interpret this result as normal/abnormal . NRBC x10^3 (test code <0.01 See_Comment [Auto mated = 8247719732) message] The system which generated this result transmit ramirez reference range : 10*3/?L. The reference range was not used to interpret this result as normal/abnormal . GRAN MAT (NEUT) % 81.9 % (test code = 770-8) IMM GRAN % (test code 0.40 % = 4794607102) LYMPH % (test code = 13.2 % 736-9) MONO % (test code = 3.5 % 5905-5) EOS % (test code = 0.5 % 713-8) BASO % (test code = 0.5 % 706-2) GRAN MAT x10^3(ANC) 13.49 10*3/uL 1.88-7.09 H (test code = 1160801860) IMM GRAN x10^3 (test 0.06 10*3/uL 0.00-0.06 code = 0470660070) LYMPH x10^3 (test code 2.17 10*3/uL 1.32-3.29 = 731-0) MONO x10^3 (test code 0.58 10*3/uL 0.33-0.92 = 742-7) EOS x10^3 (test code = 0.08 10*3/uL 0.03-0.39 711-2) BASO x10^3 (test code 0.08 10*3/uL 0.01-0.07 H = 704-7) Lab Interpretation Abnormal (test code = 28290-4) [facility] CenterPOCT [id number] 14:41:00 Test Item Value Reference Range Interpretation Comments On board controls acceptable with Negative C Line (test code = 3574) POCT PREG LOT # (test code = 3575) [id number] POCT PREG TEST DATE (test 10/15/2020 code = 3576) Lab Interpretation (test code = Normal 45518-3) [facility]- XR ANKLE 3 + V [id number] 00:12:00 [facility] SHABNAM PRICEName: RONNIE HERRERA : 1995 Sex: F FAX: Tomas Grant MD [phone] [place]: St: REG [facility] [place] : 1995 Age/S: 24/F [address] [place] [address] Unit #: [id number] Loc: [place] [address] Phys: Tomas Reagan MD Acct: [id number] Dis Date: Status: REG ER PHONE #: [phone] Exam Date: 06/19/2020 2358 FAX #: [phone] Reason: ANKLE PAIN EXAMS: CPT CODE: [id number] XR ANKLE 3 + V LT [address]906 Left tibia/fibula, 2 views and left ankle, 3 views dated 06/19/2020. HISTORY: Left lower leg/ankle injury. Pain. Left tibia/fibula: AP and lateral views of the left tibia and fibula demonstrate no evidence of acute fracture, dislocation or bone destruction. Left ankle: AP, lateral and oblique views of the left ankle demonstrate no evidence of distal left tibial or fibular fracture or bone destruction. The talus appears intact and normally located. The ankle m ortise appears preserved. IMPRESSION: 1. No acute bony abnormalities of theleft tibia, fibula or ankle are detected. SL: 131 at 0012 Reported and signed by: Anibal Young M.D. CC: Tomas Reagan MD Technologist: RT Lisy(R) Trnscrd Date/Time/By: 06/20/2020 (001) : By: JimmieM Orig Print D/T: S: 06/20/2020 (001) PAGE 1 Signed Report- XR TIBIA/FIBULA 2 V [id number] 00:12:00 [facility] : 1995 Sex: F FAX: Tomas Grant MD [phone] [place]: St: REG Name: RONNIE HERRERA [facility] Shabnam Price : 1995 Age/S: 24/F [address] [place] [address] Unit #: [id number] Loc: [place] [address] Phys: Tomas Reagan MD Acct: [id number] Dis Date: Status: REG ER PHONE #: [phone] Exam Date: 06/19/2020 2358 FAX #: [phone] Reason: LEG PAIN EXAMS: CPT CODE: [id number] XR TIBIA/FIBULA 2 VLT 61885 Left tibia/fibula, 2 views and left ankle, 3 views dated 06/19/2020. HISTORY: Left lower leg/ankle injury. Pain. Left tibia/fibula: AP and lateral views of the left tibia and fibula demonstrate no evidence of acute fracture, dislocation or bone destruction. Left ankle: AP, lateral and oblique views of the left ankle demonstrate no evidence of distal left tibial or fibular fracture or bone destruction. The talus appears intact and normally located. The ankle m ortise appears preserved. IMPRESSION: 1. No acute bony abnormalities of theleft tibia, fibula or ankle are detected. SL: 131 at 0012 Reported and signed by: Anibal Young M.D. CC: Tomas Reagan MD Technologist: RT Lisy(R) Trnscrd Date/Time/By: 06/20/2020 (001) : By: JimmieM Orig Print D/T: S: 06/20/2020 (0015) PAGE 1 Signed Report- CT ABD PELVIS W/[id number] 16:43:00 [facility] : 1995 Sex: F Name: RONNIE HERRERA : 1995 Age/S: 24 / F [address] [place] [address] Unit #: [id number] Loc: [place] [address] Phys: Rachell Drake MD Acct: [id number] Dis Date: Status: REG ER PHONE #: [phone] Exam Date: 04/15/2020 1619 FAX #: [phone] Reason: ACUTE ON CHRONIC ABD PAIN EXAMS: CPT CODE: [id number] CT ABD PELVIS W/CONT 31001 CT ABDOMEN AND PELVIS WITH CONTRAST. INDICATION: Acute on chronic abdominal pain. Ongoing nausea vomiting diarrhea. Upper abdominal pain. Back pain. COMPARISON: 03/18/2020 CT abdomen pelvis TECHNIQUE: Helical imaging was performed from the diaphragm through the pubic symphysis with multiplanar reformations obtained. DOSE: CT imaging performed at this location utilizes radiation dose optimization technique which includes one or more of the followin) Automated exposure control; 2) Adjustment of the mA and/or kV according to patient's size; 3) Use of iterative reconstruction techniques. DLP: 686 mGy-cm IV contrast: 100 mL Isovue-300 GI contrast: None FINDINGS: LOWER CHEST: Visualized portions of the lung bases are clear. PERITONEUM: No free intraperitoneal air or fluid. RETROPERITONEUM: Abdominal aorta is normal in caliber. No adenopathy appreciated. SOLID ORGANS: The liver, gallbladder, spleen, pancreas, bilateral adrenal glands, and bilateral kidneys all appear normal. PELVIS: Minimal fluidpresent in the bladder. Uterus appears anteverted. BOWELS/APPENDIX: There are noabnormally dilated small or large bowel loops. The appendix is normal. Nearly the entire colonis collapsed resulting in mild to moderate wall thickening. No pericolonic fatty injection is seen. MUSCULOSKELETAL: No suspicious osseous abnormality identified. IMPRESSION: No acute findings of the abdomen or pelvis. SL: -H PAGE 1 Signed Report (CONTINUED) Name: RONNIE HERRERA : 1995 Age/S: 24 / F [address] [place] [address] Unit #: [id number] Loc: [place] [address] Phys: Rachell Drake MD Acct: [id number] Dis Date: Status: REG ER PHONE #: [phone] Exam Date: 0 04/15/2020 1618 FAX #: [phone] Reason: ACUTE ON CHRONIC ABD PAIN EXAMS: CPT CODE: [id number] CTABD PELVIS W/CONT 88221 <Continued> at 1643 Reported and signed by: Roney Jean-Baptiste M.D. CC: Rachell Drake MD Technologist:Olivia Mendiola, RT(R) CTDI: DLP: Trnscb Date/Time: 04/15/2020 (1642) [email or web address] Orig Print D/T: S: 04/15/2020 (1645) PAGE 2 Signed ReportUA RFLX MICR CULT IF [id number] 16:32:00 Test Item Value Reference Range Interpretation Comments UA COLOR (test code = COLU) YELLOW YEL/STRAW UA APPEARANCE (test code = APPU) CLOUDY CLEAR A UA GLUCOSE DIPSTICK (test code = NEGATIVE NEGATIVE DGLUU) UA BILIRUBIN DIPSTICK (test code NEGATIVE NEGATIVE = BILU) UA KETONE DIPSTICK (test code = NEGATIVE NEGATIVE KETU) UA SPECIFIC GRAVITY (test code = 1.024 1.005-1.030 N SGU) UA BLOOD DIPSTICK (test code = NEGATIVE NEGATIVE ZOYA) UA PH DIPSTICK (test code = IMAN) 5.0 5.0-7.0 N UA PROTEIN DIPSTICK (test code = 1+ NEGATIVE A PROU) UA UROBILINIOGEN DIPSTICK (test 0.2 mg/dL 0.2-1.0 code = URO) UA NITRITE DIPSTICK (test code = NEGATIVE NEGATIVE DERRICK) UA LEUKOCYTE ESTERASE DIPSTICK NEGATIVE NEGATIVE (test code = LEUU) UA WBC (test code = WBCU) 0-3 WBC/HPF 0-3 UA RBC (test code = RBCU) 0-3 RBC/HPF 0-3 UA WBC NO REFLEX (test code = 0-3 WBC/HPF 0-3 WBCUCL) UA BACTERIA (test code = BACU) TRACE /HPF NONE SEEN UA SQUAMOUS CELLS (test code = 36-50 /HPF NONE SEEN A SQU) UA MUCUS (test code = MUCU) TRACE /LPF NONE SEEN Indication for culture: Dysuria/FrequencySpecimen Description: STRAIGHT CATH - XR ABD ACUTE [id number] 14:03:00 [facility] SHABNAM MAGNOLIAName: RONNIE HERRERA : 1995 Sex: F FAX: Rachell Echeverria MD [phone] [place]: St: REG Name: RONNIE HERRERA [facility] [place] : 1995 Age/S: 24/F [address] [place] [address] Unit #: [id number] Loc: [place] [address] Phys: Rachell Drake MD Acct: [id number] Dis Date: Status: REG ER PHONE #: [phone] Exam Date: 04/15/2020 1345 FAX #: [phone] Reason: acute abd pain EXAMS: CPT CODE: [id number] XR ABD ACUTE W/CHEST 64079 PROCEDURE: ABDOMINAL SERIES WITH SINGLE VIEW CHEST INDICATION: acute abd pain; . COMPARISON: CT abdomen 03/18/2020 FINDINGS: ABDOMEN: There is a small volume of gas in nondistended stomach. There is a paucity of bowel gas otherwise. No free intraperitoneal air. No gross soft tissue masses or pathologic calcifications. The skeleton is intact. CHEST: The lungs are clear. The pleura, cardiomediastinal silhouette and bony thorax are normal. IMPRESSION: Nonspecific abdomen with paucity of bowel gas. SL: [id number] t 1403 Reported and signed by: All Reyes M.D. CC: Rachell Drake MD Technologist: Yary Álvarez, RT(R); Mila StewardRT(R) Trnscrd Date/Time/By: 04/15/2020 (140) : By: Jamie Orig Print D/T: S: 04/15/2020 (1406) PAGE 1 Signed ReportBASIC METABOLIC [id number] 13:24:00 Test Item Value Reference Range Interpretation Comments SODIUM (test code = NA) 140 mEq/L 134-147 N POTASSIUM (test code = 4.1 mEq/L 3.4-5.0 N K) CHLORIDE (test code = 106 mEq/L 100-108 N CL) CARBON DIOXIDE (test 24 mEq/l 21-33 N code = CO2) ANION GAP (test code = 14 0-20 N GAP) GLUCOSE (test code = 141 mg/dL 70-110 H GLU) BLOOD UREA NITROGEN 13 mg/dL 7-18 N (test code = BUN) GLOMERULAR FILTRATION 102.0 110-120 L Units of measure = RATE (test code = GFR) ml/mi n/1.73 m2 CREATININE (test code = 0.7 mg/dL 0.6-1.3 N CREAT) CALCIUM (test code = 9.8 mg/dL 8.0-10.5 N CA) HEPATIC FUNCTION [id number] 13:24:00 Test Item Value Reference Range Interpretation Comments TOTAL PROTEIN (test code = PROT) 7.4 g/dL 6.4-8.2 N ALBUMIN (test code = ALB) 4.40 g/dL 3.4-5.0 N BILIRUBIN TOTAL (test code = 0.20 mg/dL 0.0-1.0 N BILT) BILIRUBIN DIRECT (test code = < 0.10 MG/DL 0.0-0.30 N BILD) BILIRUBIN INDIRECT (test code = 0.10 MG/DL BILIND) SGOT/AST (test code = AST) 23 IUnit/L 15-37 N SGPT/ALT (test code = ALT) 44 IUnit/L 30-65 N ALKALINE PHOSPHATASE TOTAL (test 66 IUnit/L 20-125 N code = ALKP) [id number] 13:24:00 Test Item Value Reference Range Interpretation Comments LIPASE (test code = LIP) 26 U/L 13-57 N [id number] 13:24:00 Test Item Value Reference Range Interpretation Comments MAGNESIUM (test code = MAG) 1.62 mg/dL 1.80-2.40 L HCG SERUM [id number] 13:24:00 Test Item Value Reference Range Interpretation Comments HCG SERUM QUAL (test code = SERUM NEGATIVE NEGATIVE HCGQL) BASIC METABOLIC [id number] 13:17:00 Test Item Value Reference Range Interpretation Comments SODIUM (test code = NA) mEq/L 134-147 POTASSIUM (test code = K) mEq/L 3.4-5.0 CHLORIDE (test code = CL) mEq/L 100-108 CARBON DIOXIDE (test code = CO2) mEq/l 21-33 ANION GAP (test code = GAP) 0-20 GLUCOSE (test code = GLU) mg/dL 70-110 BLOOD UREA NITROGEN (test code = BUN) mg/dL 7-18 GLOMERULAR FILTRATION RATE (test code 110-120 = GFR) CREATININE (test code = CREAT) mg/dL 0.6-1.3 CALCIUM (test code = CA) mg/dL 8.0-10.5 HEPATIC FUNCTION [id number] 13:17:00 Test Item Value Reference Range Interpretation Comments TOTAL PROTEIN (test code = PROT) g/dL 6.4-8.2 ALBUMIN (test code = ALB) g/dL 3.4-5.0 BILIRUBIN TOTAL (test code = BILT) mg/dL 0.0-1.0 BILIRUBIN DIRECT (test code = BILD) MG/DL 0.0-0.30 SGOT/AST (test code = AST) IUnit/L 15-37 SGPT/ALT (test code = ALT) IUnit/L 30-65 ALKALINE PHOSPHATASE TOTAL (test IUnit/L 20-125 code = ALKP) [id number] 13:17:00 Test Item Value Reference Range Interpretation Comments LIPASE (test code = LIP) U/L 13-57 [id number] 13:17:00 Test Item Value Reference Range Interpretation Comments MAGNESIUM (test code = MAG) mg/dL 1.80-2.40 HCG SERUM [id number] 13:17:00 Test Item Value Reference Range Interpretation Comments HCG SERUM QUAL (test code = SERUM NEGATIVE NEGATIVE HCGQL) PROTHROMBIN [id number] 13:08:00 Test Item Value Reference Range Interpretation Comments PROTHROMBIN TIME 10.3 SECONDS 9.3-12.9 N PATIENT (test code = PTP) INTERNATIONAL NORMAL 1.0 0.8-1.2 N TARGET RATIO (test code = INR BY IN DICATION INR) Indication INR1. Prophyl axis of venous thrombos is 2.0 - 3. 0 (orthopedic jordon emir), Prophylaxis of venous thrombos is (other than hig h-risk surgery), Molly tment of Deep Vein Thrombosis/Pulm onary Embolism, Preve ntion of systemic emb olism - Tissue heart va lves, Acute Myocardia l Infarction (to prevent systemic embo lism), Valvular heart disease, Atri al Fibrillation, Bileaflet mecha nical valve in aortic position.2. Mec hanical prosthetic valv es (high risk), 2.5 - 3.5 Presence of Lupus Anticoagu lant or Antiphospholi pid Antibodies, Pre vention of systemic e mbolism - Acute Myocard ial Infarction (t o prevent recurre nt infarct). THROMBOPLASTIN TIME [id number] 13:08:00 Test Item Value Reference Range Interpretation Comments THROMBOPLASTIN TIME 26.2 Seconds 25.0-39.5 N Ther apeutic PARTIAL (test code = Range: 50.4 - 88.3 PTT) Seconds Effective 05/31/2018 PROTHROMBIN [id number] 13:05:00 Test Item Value Reference Range Interpretation Comments PROTHROMBIN TIME 10.3 SECONDS 9.3-12.9 N PATIENT (test code = PTP) INTERNATIONAL NORMAL 1.0 0.8-1.2 N TARGET RATIO (test code = INR BY IN DICATION INR) Indication INR1. Prophyl axis of venous thrombos is 2.0 - 3. 0 (orthopedic jordon emir), Prophylaxis of venous thrombos is (other than hig h-risk surgery), Molly tment of Deep Vein Thrombosis/Pulm onary Embolism, Preve ntion of systemic emb olism - Tissue heart va lves, Acute Myocardia l Infarction (to prevent systemic embo lism), Valvular heart disease, Atri al Fibrillation, Bileaflet mecha nical valve in aortic position.2. Mec hanical prosthetic valv es (high risk), 2.5 - 3.5 Presence of Lupus Anticoagu lant or Antiphospholi pid Antibodies, Pre vention of systemic e mbolism - Acute Myocard ial Infarction (t o prevent recurre nt infarct). THROMBOPLASTIN TIME [id number] 13:05:00 Test Item Value Reference Range Interpretation Comments THROMBOPLASTIN TIME PARTIAL (test Seconds 25.0-39.5 code = PTT) CBC W/AUTO [id number] 12:59:00 Test Item Value Reference Range Interpretation Comments WHITE BLOOD CELL (test code = 14.3 x10 3/uL 4.5-11.0 H WBC) RED BLOOD CELL (test code = 4.60 x10 6/uL 3.54-5.02 N RBC) HEMOGLOBIN (test code = HGB) 14.0 g/dL 11.0-15.0 N HEMATOCRIT (test code = HCT) 43.1 % 33.0-45.0 N MEAN CELL VOLUME (test code = 93.7 fL 81.0-99.0 N MCV) MEAN CELL HGB (test code = 30.4 pg 27.0-33.0 N MCH) MEAN CELL HGB CONCETRATION 32.5 g/dL 33.0-37.0 L (test code = MCHC) RED CELL DISTRIBUTION WIDTH CV 13.8 % 11.5-14.5 N (test code = RDW) RED CELL DISTRIBUTION WIDTH SD 46.9 fL 37.0-54.0 N (test code = RDW-SD) PLATELET COUNT (test code = 362 x10 3/uL 150-400 N PLT) MEAN PLATELET VOLUME (test 10.5 fL 7.0-9.0 H code = MPV) NEUTROPHIL % (test code = NT%) 83.6 % 56.0-77.0 H IMMATURE GRANULOCYTE % (test 0.4 % 0.0-2.0 N code = IG%) LYMPHOCYTE % (test code = LY%) 11.8 % 14.0-32.0 L MONOCYTE % (test code = MO%) 3.8 % 4.8-9.0 L EOSINOPHIL % (test code = EO%) 0.1 % 0.3-3.7 L BASOPHIL % (test code = BA%) 0.3 % 0.0-2.0 N NUCLEATED RBC % (test code = 0.0 % 0-0 N NRBC%) NEUTROPHIL # (test code = NT#) 11.96 x10 3/uL 2.0-7.6 H IMMATURE GRANULOCYTE # (test 0.06 x10 3/uL 0.00-0.03 H code = IG#) LYMPHOCYTE # (test code = LY#) 1.69 x10 3/uL 1.0-3.8 N MONOCYTE # (test code = MO#) 0.54 x10 3/uL 0.1-0.8 N EOSINOPHIL # (test code = EO#) 0.02 x10 3/uL 0.0-0.2 N BASOPHIL # (test code = BA#) 0.04 x10 3/uL 0.0-0.2 N NUCLEATED RBC # (test code = 0.00 x10 3/uL 0.0-0.1 N NRBC#) MANUAL DIFF REQUIRED (test NO code = MDIFF) CBC W/AUTO [id number] 12:55:00 Test Item Value Reference Range Interpretation Comments WHITE BLOOD CELL (test code = x10 3/uL 4.5-11.0 WBC) RED BLOOD CELL (test code = RBC) x10 6/uL 3.54-5.02 HEMOGLOBIN (test code = HGB) 14.0 g/dL 11.0-15.0 N HEMATOCRIT (test code = HCT) 43.1 % 33.0-45.0 N MEAN CELL VOLUME (test code = fL 81.0-99.0 MCV) MEAN CELL HGB (test code = MCH) pg 27.0-33.0 MEAN CELL HGB CONCETRATION (test g/dL 33.0-37.0 code = MCHC) RED CELL DISTRIBUTION WIDTH CV % 11.5-14.5 (test code = RDW) PLATELET COUNT (test code = PLT) 362 x10 3/uL 150-400 N NEUTROPHIL % (test code = NT%) % 56.0-77.0 LYMPHOCYTE % (test code = LY%) % 14.0-32.0 NEUTROPHIL # (test code = NT#) x10 3/uL 2.0-7.6 LYMPHOCYTE # (test code = LY#) x10 3/uL 1.0-3.8 MANUAL DIFF REQUIRED (test code = MDIFF) - DUP AB/PEL/SC/[id number] 14:48:00 [facility] 1995 Sex: F Name: RONNIE HERRERA [facility] : 1995 Age/S: 24 / F [address] [place] [address] Unit #: [id number] Loc: [place] [address] Phys: Rachell Drake MD Acct: [id number] Dis Date: Status: REG ER PHONE #: [phone] Exam Date: 03/18/2020 [facility] FAX #: [phone] Reason: see US Pelvic Non OB Complete EXAMS: CPT CODE: [id number] DUP AB/PEL/SC/LTD 65376 EXAM: US PELVIS TRANSABDOMINAL EXAM: US PELVIS TRANSVAGINAL DATE: 03/18/2020 1:30 PM INDICATION: acute pelvic pain : 1995; Age: 24 years y/o Female COMPARISON: CT March 18, 2020 TECHNIQUE: Multiplanar grayscale and color Doppler ultrasound of the pelvis were obtained transabdominally and transvaginally. Transvaginal examination was performed for better evaluation of endometrium and adnexa. FINDINGS: Uterus/Myometrium: Size: 9.1 x 5.1 x 6.8 cm Echogenicity: Slightly heterogeneous Masses: None. Cervix: Nabothian cysts identified. Otherwise normal cervix. Endometrium: Thickness: 1.4 cm Cysts/Masses: None. Right ovary: Size: 3.2 x 2.4 x 2.9 cm Cysts/Masses: Dominant follicle is seen. Left ovary: Size: 2.1 x 2.1 x 2.9 cm Cysts/Masses: None. Adnexa: Normal ovarian Doppler flow. Free fluid: None. IMPRESSION: No acute findings. SL: [id number] PAGE 1 Signed Report (CONTINUED) Name: RONNIE HERRERA [facility] Shabnam Price : 1995 Age/S: 24 / F [address] [place] [address] Unit #: [id number] Loc: [place] [address] Phys: Rachell Drake MD Acct: [id number] Dis Date: Status: REG ER PHONE #: [phone] Exam Date: 03/18/2020 1434 FAX #: [phone] Reason: see US Pelvic Non OB Complete EXAMS: CPT CODE: [id number] DUP AB/PEL/SC/LTD 10037 <Continued> at 1448 Reported and signed by: Yi Isabel D.O. CC: Rachell Drake MD Technologist: Ashley Magana RDMS(Belkis)(BR) Trnscb Date/Time: 03/18/2020 (1448) [id number] Orig Print D/T: S: 03/18/2020 (1455) Probe: PAGE 2 Signed Report- US TRANSVAGINAL NON [id number] 14:48:00 [facility] SHABNAM MAGNOLIAName: RONNIE HERRERA : 1995 Sex: F Name: HERRERA,RONNIE Joselito Price : 1995 Age/S: 24 / F [address] [place] [address] Unit #: [id number] Loc: [place] [address] Phys: Rachell Drake MD Acct: [id number] Dis Date: Status: REG ER PHONE #: [phone] Exam Date: 03/18/20204 FAX #: [phone] Reason: see US Pelvic Non OB Complete EXAMS: CPT CODE: [id number] [place] [id number] EXAM: US PELVIS TRANSABDOMINAL EXAM: US PELVIS TRANSVAGINAL DATE: 03/18/2020 1:30 PM INDICATION: acute pelvic pain : 1995; Age: 24 years y/o Female COMPARISON: CT March 18, 2020 TECHNIQUE: Multiplanar grayscale and color Doppler ultrasound of the pelvis were obtained transabdominally and transvaginally. Transvaginal examination was performed for better evaluation of endometrium and adnexa. FINDINGS: Uterus/Myometrium: Size: 9.1 x 5.1 x 6.8 cm Echogenicity: Slightly heterogeneous Masses: None. Cervix: Nabothian cysts identified. Otherwise normal cervix. Endometrium: Thickness: 1.4 cm Cysts/Masses: None. Right ovary: Size: 3.2 x 2.4 x 2.9 cm Cysts/Masses: Dominant follicle is seen. Left ovary: Size: 2.1 x 2.1 x 2.9 cm Cysts/Masses: None. Adnexa: Normal ovarian Doppler flow. Free fluid: None. IMPRESSION: No acute findings. SL: [id number] PAGE 1 Signed Report (CONTINUED) Name: RONNIE HERRERA [facility] Price : 1995 Age/S: 24 / F [address] [facility] Unit #: [id number] Loc: [place] [address] Phys: Rachell Drake MD Acct: [id number] Dis Date: Status: REG ER PHONE #: [phone] Exam Date: 03/18/2020 1434 FAX #: [phone] Reason: see US Pelvic Non OB Complete EXAMS: CPT CODE: [id number] [place] [address] <Continued> at 1448 Reported and signed by: Yi Isabel D.O. CC: Rachell Drake MD Technologist: Ashley Magana RDMS(Belkis)(BR) Trnscb Date/Time: 03/18/2020 (1448) [id number] Orig Print D/T: S: 03/18/2020 (0941) Probe: [id number] PAGE 2 Signed Report- US PELVIS [id number] 14:48:00 [facility] 1995 Sex: F Name: RONNIE HERRERA [facility] : 1995 Age/S: 24 / F [address] [place] [address] Unit #: [id number] Loc: [place] [address] Phys: Rachell Drake MD Acct: [id number] Dis Date: Status: REG ER PHONE #: [phone] Exam Date: 03/18/2020 [facility]4 FAX #: [phone] Reason: acute pelvic pain EXAMS: CPT CODE: [id number] US PELVIS COMPLETE 42380 EXAM: US PELVIS TRANSABDOMINAL EXAM: US PELVIS TRANSVAGINAL DATE: 03/18/2020 1:30 PM INDICATION: acute pelvic pain : 1995; Age: 24 years y/o Female COMPARISON: CT March 18, 2020 TECHNIQUE: Multiplanar grayscale and color Doppler ultrasound of the pelvis were obtained transabdominally and transvaginally. Transvaginal examination was performed for better evaluation of endometrium and adnexa. FINDINGS: Uterus/Myometrium: Size: 9.1 x 5.1 x 6.8 cm Echogenicity: Slightly heterogeneous Masses: None. Cervix: Nabothian cysts identified. Otherwise normal cervix. Endometrium: Thickness: 1.4 cm Cysts/Masses: None. Right ovary: Size: 3.2 x 2.4 x 2.9 cm Cysts/Masses: Dominant follicle is seen. Left ovary: Size: 2.1 x 2.1 x 2.9 cm Cysts/Masses: None. Adnexa: Normal ovarian Doppler flow. Free fluid: None. IMPRESSION: No acute findings. SL: [id number] PAGE 1 Signed Report (CONTINUED) Name: RONNIE HERRERA [facility] [place] : 1995 Age/S: 24 / F [address] [place] [address] Unit #: [id number] Loc: [place] [address] Phys: Rachell Drake MD Acct: [id number] Dis Date: Status: REG ER PHONE #: [phone] Exam Date: 03/18/2020 1434 FAX #: [phone] Reason: acute pelvic pain EXAMS: CPT CODE: [id number] US PELVIS COMPLETE 47913 <Continued> at 1448 Reported and signed by: Yi Isabel D.O. CC: Rachell Drake MD Technologist: Ashley Magana RDMS(Belkis)(BR) Trnscb Date/Time: 03/18/2020 (1448) [email or web address] Orig Print D/T: S: 03/18/2020 (6046) Probe: PAGE 2 Signed Report- US ABDOMEN [id number] 14:43:00 [facility] 1995 Sex: F Name: RONNIE HERRERA : 1995 Age/S: 24 / F [address] [facility] Unit #: [id number] Loc: [place] [address] Phys: Rachell Drake MD Acct: [id number] Dis Date: Status: REG ER PHONE #: [phone] Exam Date: 03/18/2020 1434 FAX #: [phone] Reason: acute abd pain EXAMS: CPT CODE: [id number] US ABDOMEN LTD 42534 EXAM: US ABDOMEN LIMITED DATE: 03/18/2020 1:37 PM : 1995; Age: 24 years y/o Female INDICATION: acute lower abd pain COMPARISON: CT 03/18/2020 TECHNIQUE: Multiplanar grayscale and color Doppler ultrasound of the right upper quadrant. FINDINGS: Liver: Liver is borderline in size. Echogenicity: Normal. Surface: Normal. Mass (size and location): None. Main portal vein: Patent with hepatopedal flow. Bile ducts: Common bile duct diameter: 0.3 cm. Intrah epatic ducts: Normal. Gallbladder: Gallstones: None. Gallbladder sludge: None. Gallbladder wall: 0.2 cm. Sonographic Krishnamurthy sign: Absent. Pancreas: Unremarkable. Right kidney: Size: 10.5 cm. Hydronephrosis: None. Echogenicity: Normal. Calculi: None. Cysts/Masses: None. Other: None. IMPRESSION: No acute findings. Liver is borderline in size. PAGE 1 Signed Report (CONTINUED) Name: RONNIE HERRERA : 1995 Age/S: 24 / F [address] [place] [address] Unit #: [id number] Loc: [place] [address] Phys: Rachell Kasper MD Acct: [id number] Dis Date: Status: REG ER PHONE #: [phone] Exam Date: 03/18/20201433 FAX #: [phone] Reason: acute abd pain EXAMS: CPT CODE: [id number] US ABDOMEN LTD 19751 <Continued> SL: [id number] at 1443 Reported and signed by: Yi Isabel D.O. CC: Rachell Drake MD Technologist: Ashley Magana RDMS(Belkis)(BR) Trnscb Date/Time: 03/18/2020 (1443) [email or web address] Orig Print D/T: S: 03/18/2020 (9646) Probe: PAGE 2 Signed ReportBASIC METABOLIC [id number] 11:42:00 Test Item Value Reference Range Interpretation Comments SODIUM (test code = NA) 138 mEq/L 134-147 N POTASSIUM (test code = 3.6 mEq/L 3.4-5.0 N K) CHLORIDE (test code = 103 mEq/L 100-108 N CL) CARBON DIOXIDE (test 22 mEq/l 21-33 N code = CO2) ANION GAP (test code = 17 0-20 N GAP) GLUCOSE (test code = 171 mg/dL 70-110 H GLU) BLOOD UREA NITROGEN 9 mg/dL 7-18 N (test code = BUN) GLOMERULAR FILTRATION 102.0 110-120 L Units of measure = RATE (test code = GFR) ml/mi n/1.73 m2 CREATININE (test code = 0.7 mg/dL 0.6-1.3 N CREAT) CALCIUM (test code = 9.6 mg/dL 8.0-10.5 N CA) HEPATIC FUNCTION [id number] 11:42:00 Test Item Value Reference Range Interpretation Comments TOTAL PROTEIN (test code = PROT) 7.3 g/dL 6.4-8.2 N ALBUMIN (test code = ALB) 4.50 g/dL 3.4-5.0 N BILIRUBIN TOTAL (test code = BILT) 0.30 mg/dL 0.0-1.0 N BILIRUBIN DIRECT (test code = 0.10 MG/DL 0.0-0.30 N BILD) BILIRUBIN INDIRECT (test code = 0.20 MG/DL BILIND) SGOT/AST (test code = AST) 13 IUnit/L 15-37 L SGPT/ALT (test code = ALT) 20 IUnit/L 30-65 L ALKALINE PHOSPHATASE TOTAL (test 63 IUnit/L 20-125 N code = ALKP) [id number] 11:42:00 Test Item Value Reference Range Interpretation Comments LIPASE (test code = LIP) 25 U/L 13-57 N HCG SERUM [id number] 11:42:00 Test Item Value Reference Range Interpretation Comments HCG SERUM QUAL (test code = SERUM NEGATIVE NEGATIVE HCGQL) - CT ABD PELVIS [id number] 11:38:00 [facility] 1995 Sex: F Name: RONNIE HERRERA [facility] : 1995 Age/S: 24 / F [address] [place] [address] Unit #: [id number] Loc: [place] [address] Phys: Rachell Drake MD Acct: [id number] Dis Date: Status: REG ER PHONE #: [phone] Exam Date: 03/18/2020 1123 FAX #: [phone] Reason: ACUTE ABD PAIN EXAMS: CPT CODE: [id number] CT ABD PELVIS W/CONT 69409 Clinical Indication: Acute abdominal pain. Comparison: 01/03/2019. TECHNIQUE: Cont iguous axial CT images of the abdomen and pelvis were acquired following administration of 100mL Isovue-300 IV contrast. Oral contrast was not administered. Coronal and sagittal reconstructions were obtained. CT imaging performed at this location utilizes radiation dose optimization techniques which include one or more of the following: - Automated exposurecontrol -Adjustment of the mA and/or kV according to patient size -Use of iterative reconstruction technique CT Radiation Dose DLP 588 mGy-cm FINDINGS: Lung bases are clear. Visualized cardiac apex is unremarkable. Liver, gallbladder, spleen, pancreas, and adrenal glands are unremarkable. Stomach and small bowel are unremarkable. No obstruction. Appendix is normal caliber. Colon is collapsed. Abdominal aorta is normal caliber. No free fluid or pneumoperitoneum. 2.4 cm left and 2.2cm right ovarian follicles or cysts. Uterus and urinary bladder are unremarkable. No destructive osseous lesion. IMPRESSION: 1. No acute process in the abdomen or pelvis. 2. Bilateral ovarian follicles or cysts. SL: [id number] Electronically Signed by Khoa Khanna on 03/18 at 1138 Reported and signed by: Jj Khanna M.D. PAGE 1 Signed Report (CONTINUED) Name: RONNIE HERRERA [facility] : 1995 Age/S: 24 / F [address] [facility] Unit #: [id number] Loc: [place] [address] Phys: Rachell Draek MD Acct: [id number] Dis Date: Status: REG ER PHONE #: [phone] Exam Date: 03/18/2020 1123 FAX #: [phone] Reason: ACUTE ABD PAIN EXAMS: CPT CODE: [id number] CT ABD PELVIS W/CONT 28741 <Continued> CC: Rachell Drake MD Technologist:Robert Marcial RT(R)(CT) CTDI: DLP: Trnscb Date/Time: 03/18/2020 (1138) [id number] Orig Print D/T: S: 03/18/2020 (1141) PAGE 2 Signed ReportBASIC METABOLIC [id number] 11:34:00 Test Item Value Reference Range Interpretation Comments SODIUM (test code = NA) mEq/L 134-147 POTASSIUM (test code = K) mEq/L 3.4-5.0 CHLORIDE (test code = CL) mEq/L 100-108 CARBON DIOXIDE (test code = CO2) mEq/l 21-33 ANION GAP (test code = GAP) 0-20 GLUCOSE (test code = GLU) mg/dL 70-110 BLOOD UREA NITROGEN (test code = BUN) mg/dL 7-18 GLOMERULAR FILTRATION RATE (test code 110-120 = GFR) CREATININE (test code = CREAT) mg/dL 0.6-1.3 CALCIUM (test code = CA) mg/dL 8.0-10.5 HEPATIC FUNCTION [id number] 11:34:00 Test Item Value Reference Range Interpretation Comments TOTAL PROTEIN (test code = PROT) g/dL 6.4-8.2 ALBUMIN (test code = ALB) g/dL 3.4-5.0 BILIRUBIN TOTAL (test code = BILT) mg/dL 0.0-1.0 BILIRUBIN DIRECT (test code = BILD) MG/DL 0.0-0.30 SGOT/AST (test code = AST) IUnit/L 15-37 SGPT/ALT (test code = ALT) IUnit/L 30-65 ALKALINE PHOSPHATASE TOTAL (test IUnit/L 20-125 code = ALKP) [id number] 11:34:00 Test Item Value Reference Range Interpretation Comments LIPASE (test code = LIP) U/L 13-57 HCG SERUM [id number] 11:34:00 Test Item Value Reference Range Interpretation Comments HCG SERUM QUAL (test code = SERUM NEGATIVE NEGATIVE HCGQL) UA RFLX MICR CULT IF [id number] 11:18:00 Test Item Value Reference Range Interpretation Comments UA COLOR (test code = COLU) YELLOW YEL/STRAW UA APPEARANCE (test code = CLEAR CLEAR APPU) UA GLUCOSE DIPSTICK (test code 2+ NEGATIVE A = DGLUU) UA BILIRUBIN DIPSTICK (test NEGATIVE NEGATIVE code = BILU) UA KETONE DIPSTICK (test code TRACE NEGATIVE A = KETU) UA SPECIFIC GRAVITY (test code 1.021 1.005-1.030 N = SGU) UA BLOOD DIPSTICK (test code = NEGATIVE NEGATIVE ZOYA) UA PH DIPSTICK (test code = 7.0 5.0-7.0 N IMAN) UA PROTEIN DIPSTICK (test code 2+ NEGATIVE A = PROU) UA UROBILINIOGEN DIPSTICK 0.2 mg/dL 0.2-1.0 (test code = URO) UA NITRITE DIPSTICK (test code NEGATIVE NEGATIVE = DERRICK) UA LEUKOCYTE ESTERASE DIPSTICK NEGATIVE NEGATIVE (test code = LEUU) UA WBC (test code = WBCU) 0-3 WBC/HPF 0-3 UA RBC (test code = RBCU) 0-3 RBC/HPF 0-3 UA WBC NO REFLEX (test code = 0-3 WBC/HPF 0-3 WBCUCL) UA BACTERIA (test code = BACU) NONE SEEN /HPF NONE SEEN UA SQUAMOUS CELLS (test code = 6-10 /HPF NONE SEEN A SQU) UA MUCUS (test code = MUCU) TRACE /LPF NONE SEEN Indication for culture: Dysuria/FrequencySpecimen Description: STRAIGHT CATH PROTHROMBIN [id number] 11:17:00 Test Item Value Reference Range Interpretation Comments PROTHROMBIN TIME 12.3 SECONDS 9.3-12.9 N PATIENT (test code = PTP) INTERNATIONAL NORMAL 1.1 0.8-1.2 N TARGET RATIO (test code = INR BY IN DICATION INR) Indication INR1. Prophyl axis of venous thrombos is 2.0 - 3. 0 (orthopedic jordon emir), Prophylaxis of venous thrombos is (other than hig h-risk surgery), Molly tment of Deep Vein Thrombosis/Pulm onary Embolism, Preve ntion of systemic emb olism - Tissue heart va lves, Acute Myocardia l Infarction (to prevent systemic embo lism), Valvular heart disease, Atri al Fibrillation, Bileaflet mecha nical valve in aortic position.2. Mec hanical prosthetic valv es (high risk), 2.5 - 3.5 Presence of Lupus Anticoagu lant or Antiphospholi pid Antibodies, Pre vention of systemic e mbolism - Acute Myocard ial Infarction (t o prevent recurre nt infarct). THROMBOPLASTIN TIME [id number] 11:17:00 Test Item Value Reference Range Interpretation Comments THROMBOPLASTIN TIME 28.4 Seconds 25.0-39.5 N Ther apeutic PARTIAL (test code = Range: 50.4 - 88.3 PTT) Seconds Effective 05/31/2018 CBC W/AUTO [id number] 11:06:00 Test Item Value Reference Range Interpretation Comments WHITE BLOOD CELL (test code = 16.2 x10 3/uL 4.5-11.0 H WBC) RED BLOOD CELL (test code = 4.35 x10 6/uL 3.54-5.02 N RBC) HEMOGLOBIN (test code = HGB) 13.3 g/dL 11.0-15.0 N HEMATOCRIT (test code = HCT) 41.1 % 33.0-45.0 N MEAN CELL VOLUME (test code = 94.5 fL 81.0-99.0 N MCV) MEAN CELL HGB (test code = 30.6 pg 27.0-33.0 N MCH) MEAN CELL HGB CONCETRATION 32.4 g/dL 33.0-37.0 L (test code = MCHC) RED CELL DISTRIBUTION WIDTH CV 14.2 % 11.5-14.5 N (test code = RDW) RED CELL DISTRIBUTION WIDTH SD 49.4 fL 37.0-54.0 N (test code = RDW-SD) PLATELET COUNT (test code = 370 x10 3/uL 150-400 N PLT) MEAN PLATELET VOLUME (test 10.7 fL 7.0-9.0 H code = MPV) NEUTROPHIL % (test code = NT%) 86.8 % 56.0-77.0 H IMMATURE GRANULOCYTE % (test 0.5 % 0.0-2.0 N code = IG%) LYMPHOCYTE % (test code = LY%) 8.5 % 14.0-32.0 L MONOCYTE % (test code = MO%) 3.8 % 4.8-9.0 L EOSINOPHIL % (test code = EO%) 0.0 % 0.3-3.7 L BASOPHIL % (test code = BA%) 0.4 % 0.0-2.0 N NUCLEATED RBC % (test code = 0.0 % 0-0 N NRBC%) NEUTROPHIL # (test code = NT#) 14.03 x10 3/uL 2.0-7.6 H IMMATURE GRANULOCYTE # (test 0.08 x10 3/uL 0.00-0.03 H code = IG#) LYMPHOCYTE # (test code = LY#) 1.37 x10 3/uL 1.0-3.8 N MONOCYTE # (test code = MO#) 0.61 x10 3/uL 0.1-0.8 N EOSINOPHIL # (test code = EO#) 0.00 x10 3/uL 0.0-0.2 N BASOPHIL # (test code = BA#) 0.07 x10 3/uL 0.0-0.2 N NUCLEATED RBC # (test code = 0.00 x10 3/uL 0.0-0.1 N NRBC#) MANUAL DIFF REQUIRED (test NO code = MDIFF) COMPREHENSIVE METABOLIC [id number] 11:08:00 Test Item Value Reference Range Interpretation Comments SODIUM (test code = NA) 137 mEq/L 134-147 N POTASSIUM (test code = 4.3 mEq/L 3.4-5.0 N K) CHLORIDE (test code = 108 mEq/L 100-108 N CL) CARBON DIOXIDE (test 28 mEq/L 21-33 N code = CO2) ANION GAP (test code = 5 0-20 N GAP) GLUCOSE (test code = 85 mg/dL 70-110 N GLU) BLOOD UREA NITROGEN 19 mg/dL 7-18 H (test code = BUN) GLOMERULAR FILTRATION 88.1 110-120 L Units of measure = RATE (test code = GFR) ml/mi n/1.73 m2 CREATININE (test code = 0.8 mg/dL 0.6-1.3 N CREAT) TOTAL PROTEIN (test 6.3 g/dL 6.4-8.2 L code = PROT) ALBUMIN (test code = 3.40 g/dL 3.4-5.0 N ALB) CALCIUM (test code = 8.4 mg/dL 8.0-10.5 N CA) BILIRUBIN TOTAL (test 0.1 MG/DL <1.5 N code = BILT) SGOT/AST (test code = 9 IUnit/L 15-37 L AST) SGPT/ALT (test code = 18 IUnit/L 15-65 N ALT) ALKALINE PHOSPHATASE 53 IUnit/L 20-125 N TOTAL (test code = ALKP) [id number] 11:08:00 Test Item Value Reference Range Interpretation Comments LIPASE (test code = LIP) 58 IUnit/L 73-393 L COMPREHENSIVE METABOLIC [id number] 11:00:00 Test Item Value Reference Range Interpretation Comments SODIUM (test code = NA) 137 mEq/L 134-147 N POTASSIUM (test code = K) 4.3 mEq/L 3.4-5.0 N CHLORIDE (test code = CL) 108 mEq/L 100-108 N CARBON DIOXIDE (test code = CO2) 28 mEq/L 21-33 N ANION GAP (test code = GAP) 5 0-20 N GLUCOSE (test code = GLU) 85 mg/dL 70-110 N BLOOD UREA NITROGEN (test code = 19 mg/dL 7-18 H BUN) GLOMERULAR FILTRATION RATE (test 110-120 code = GFR) CREATININE (test code = CREAT) mg/dL 0.6-1.3 TOTAL PROTEIN (test code = PROT) g/dL 6.4-8.2 ALBUMIN (test code = ALB) g/dL 3.4-5.0 CALCIUM (test code = CA) 8.4 mg/dL 8.0-10.5 N BILIRUBIN TOTAL (test code = BILT) MG/DL <1.5 SGOT/AST (test code = AST) IUnit/L 15-37 SGPT/ALT (test code = ALT) IUnit/L 15-65 ALKALINE PHOSPHATASE TOTAL (test IUnit/L 20-125 code = ALKP) [id number] 11:00:00 Test Item Value Reference Range Interpretation Comments LIPASE (test code = LIP) 58 IUnit/L 73-393 L CBC W/AUTO [id number] 10:50:00 Test Item Value Reference Range Interpretation Comments WHITE BLOOD CELL (test code = 11.03 x10 3/uL 4.5-11.0 H WBC) RED BLOOD CELL (test code = 4.18 x10 6/uL 3.54-5.02 N RBC) HEMOGLOBIN (test code = HGB) 12.6 g/dL 11.0-15.0 N HEMATOCRIT (test code = HCT) 38.9 % 33.0-45.0 N MEAN CELL VOLUME (test code = 93.1 fL 81.0-99.0 N MCV) MEAN CELL HGB (test code = 30.1 pg 27.0-33.0 N MCH) MEAN CELL HGB CONCETRATION 32.4 g/dL 33.0-37.0 L (test code = MCHC) RED CELL DISTRIBUTION WIDTH CV 14.1 % 11.5-14.5 N (test code = RDW) RED CELL DISTRIBUTION WIDTH SD 48.5 fL 37.0-54.0 N (test code = RDW-SD) PLATELET COUNT (test code = 263 x10 3/uL 150-400 N PLT) MEAN PLATELET VOLUME (test 10.8 fL 7.0-9.0 H code = MPV) NEUTROPHIL % (test code = NT%) 59.0 % 56.0-77.0 N IMMATURE GRANULOCYTE % (test 0.3 % 0.0-2.0 N code = IG%) LYMPHOCYTE % (test code = LY%) 26.7 % 14.0-32.0 N MONOCYTE % (test code = MO%) 7.0 % 4.8-9.0 N EOSINOPHIL % (test code = EO%) 6.3 % 0.3-3.7 H BASOPHIL % (test code = BA%) 0.7 % 0.0-2.0 N NUCLEATED RBC % (test code = 0.0 % 0-0 N NRBC%) NEUTROPHIL # (test code = NT#) 6.51 x10 3/uL 2.0-7.6 N IMMATURE GRANULOCYTE # (test 0.03 x10 3/uL 0.00-0.03 N code = IG#) LYMPHOCYTE # (test code = LY#) 2.94 x10 3/uL 1.0-3.8 N MONOCYTE # (test code = MO#) 0.77 x10 3/uL 0.1-0.8 N EOSINOPHIL # (test code = EO#) 0.70 x10 3/uL 0.0-0.2 H BASOPHIL # (test code = BA#) 0.08 x10 3/uL 0.0-0.2 N NUCLEATED RBC # (test code = 0.00 x10 3/uL 0.0-0.1 N NRBC#) MANUAL DIFF REQUIRED (test NO code = MDIFF) URINALYSIS [id number] 10:32:00 Test Item Value Reference Range Interpretation Comments UA COLOR (test code = COLU) STRAW YEL/STRAW UA APPEARANCE (test code = APPU) CLEAR CLEAR UA GLUCOSE DIPSTICK (test code = NEGATIVE NEGATIVE DGLUU) UA BILIRUBIN DIPSTICK (test code NEGATIVE NEGATIVE = BILU) UA KETONE DIPSTICK (test code = NEGATIVE NEGATIVE KETU) UA SPECIFIC GRAVITY (test code = 1.014 1.005-1.030 N SGU) UA BLOOD DIPSTICK (test code = 2+ NEGATIVE A ZOYA) UA PH DIPSTICK (test code = IMAN) 5.0 5.0-7.0 N UA PROTEIN DIPSTICK (test code = NEGATIVE NEGATIVE PROU) UA UROBILINIOGEN DIPSTICK (test 0.2 mg/dL 0.2-1.0 code = URO) UA NITRITE DIPSTICK (test code = NEGATIVE NEGATIVE DERRICK) UA LEUKOCYTE ESTERASE DIPSTICK NEGATIVE NEGATIVE (test code = LEUU) UA RBC (test code = RBCU) 0-3 RBC/HPF 0-3 UA WBC NO REFLEX (test code = 0-3 WBC/HPF 0-3 WBCUCL) UA BACTERIA (test code = BACU) TRACE /HPF NONE SEEN UA SQUAMOUS CELLS (test code = 0-5 /HPF NONE SEEN SQU) UR HCG [id number] 10:30:00 Test Item Value Reference Range Interpretation Comments UR HCG QUAL (test code = HCGQLU) NEGATIVE NEGATIVE PROCALCITONIN (PCT)2019-01-03 14:16:00 Test Item Value Reference Range Interpretation Comments PROCALCITONIN (PCT) < 0.05 ng/mL 0.00-0.05 N PROCALCI TONIN (PCT) (test code = PROCAL) NORMAL RANGE (ADULT): <0.05 NG/ML. * a concentration < 0.5 ng/mL represent s a low risk of severe sepsis and/or septic s hock.* a concentration >2 ng/mL represent s a high risk of se attila sepsis and/or s eptic shock.Neverthel ess, concentrations <0.5 ng/mL do not ex clude aninfection, on account of loca lized infections (withoutsystemi c signs) which ca n be associated with such lowconcentratio ns, or a systemic infe ction in its initials tages (< 6 hours). Furthermore, in creased procalcitoninca n occur without infecti on. PCT concentrations between 0.5and 2.0 ng/m L should be inter preted taking into acc ount thepatient's hi story. It is recommend ed to retest PCT with in6-24 hours if any concentrations <2 ng/mL are obtai osurav. - DUP AB/PEL/SC/[id number] 13:54:00 Name: RONNIE HERRERA [facility] : 1995 Age/S: 23 / F [address] [place] [address] Unit #: [id number] Loc: [place] [id number] Phys: Gume Courtney MD Acct: [id number] Dis Date: Status: REG ER PHONE #: [phone] Exam Date: 01/03/2019 1346 FAX #: [phone] Reason: see US Pelvic Non OB Complete EXAMS: CPTCODE: [id number] DUP AB/PEL/SC/LTD 78393 EXAM: US PELVIS TRANSABDOMINAL EXAM: US PELVIS TRANSVAGINAL DATE: 01/03/2019 11:17 AM INDICATION: Pelvic Pain : 1995; Age: 23 years y/o Female COMPARISON: CT 01/03/2019 TECHNIQUE: Multiplanar grayscale and color Doppler ultrasound of the pelvis were obtained transabdominally and transvaginally. Transvaginal examination was performed for better evaluation of endometrium and adnexa. FINDINGS: Uterus/Myometrium: Likely anterior scar is seen. Size: 8.4 x 4.8 x 6.8 cm Echogenicity: Heterogeneous Masses: None. Cervix: Nabothian cysts identified. Otherwise normal cervix. Endometrium: Thickness: 1.6 cm Cysts/Masses: None. Right ovary: Size: 3.8 x 2.5 x 2.7 cm Cysts/Masses: Complex heterogeneous focusis seen measuring 2.1 cm. Left ovary: Size: 3.2 x 1.9 x 2.7 cm Cysts/Masses: 1.6 cm simple cyst. Adnexa: Normal flow in bilateral ovaries. Free fluid: None. IMPRESSION: 1. Complex heterogeneous focus is seen in right ovary measuring 2.1 cm. This may represent hemorrhagic cyst. Follow-up 6-12 weeks pelvic ultrasound is recommended. PAGE 1 Signed Report (CONTINUED) Name: RONNIE HERRERA [facility] : 1995 Age/S: 23 / F [address] [place] [address] Unit #: [id number] Loc: [place] [address] Phys: Gume Courtney MD Acct: [id number] Dis Date: Status: REG ER PHONE #: [phone] Exam Date: 01/03/2019 1346 FAX #: [phone] Reason: see US Pelvic Non OB Complete EXAMS: CPT CODE: [id number] DUP AB/PEL/SC/LTD 36765 <Continued> SL: [id number] at 1354 Reported and signed by: Yi Isabel D.O. CC: Gume Courtney MD; Carline Quiñones MD Technologist: Zoey Bustillos RDMS() Trncab Date/Time: 01/03/2019 (1698) [email or web address] Orig Print D/T: S: 01/03/2019 (6096) Probe: PAGE 2 Signed Report- US TRANSVAGINAL NON [id number] 13:54:00 Name: RONNIE HERRERA [facility] [place] : 1995 Age/S: 23 / F [address] [place], [place] [address] Unit #: [id number] Loc: [id number] Phys: Gume Courtney MD Acct: [id number] Dis Date: Status: REG ER PHONE #: [phone] Exam Date: 01/03/2019 1346 FAX #: [phone] Reason: see US Pelvic Non OB Complete EXAMS: CPTCODE: [id number] [place] [id number] EXAM: US PELVIS TRANSABDOMINAL EXAM: US PELVIS TRANSVAGINAL DATE: 01/03/2019 11:17 AM INDICATION: Pelvic Pain : 1995; Age: 23 years y/o Female COMPARISON: CT 01/03/2019 TECHNIQUE: Multiplanar grayscale and color Doppler ultrasound of the pelvis were obtained transabdominally and transvaginally. Transvaginal examination was performed for better evaluation of endometrium and adnexa. FINDINGS: Uterus/Myometrium: Likely anterior scar is seen. Size: 8.4 x 4.8 x 6.8 cm Echogenicity: Heterogeneous Masses: None. Cervix: Nabothian cysts identified. Otherwise normal cervix. Endometrium: Thickness: 1.6 cm Cysts/Masses: None. Right ovary: Size: 3.8 x 2.5 x 2.7 cm Cysts/Masses: Complex heterogeneous focusis seen measuring 2.1 cm. Left ovary: Size: 3.2 x 1.9 x 2.7 cm Cysts/Masses: 1.6 cm simple cyst. Adnexa: Normal flow in bilateral ovaries. Free fluid: None. IMPRESSION: 1. Complex heterogeneous focus is seen in right ovary measuring 2.1 cm. This may represent hemorrhagic cyst. Follow-up 6-12 weeks pelvic ultrasound is recommended. PAGE 1 Signed Report (CONTINUED) Name: RONNIE HERRERA : 1995 Age/S: 23 / F [address] [place] [address] Unit #: [id number] Loc: [place] [id number] Phys: Gume Courtney MD Acct: [id number] Dis Date: Status: REG ER PHONE #: [phone] Exam Date: 01/03/2019 1346 FAX #: [phone] Reason: see US Pelvic Non OB Complete EXAMS: CPT CODE: [id number] [place] [id number] <Continued> SL: [id number] at 1354 Reported and signed by: Yi Isabel D.O. CC: Gume Courtney MD; Carline Quiñones MD Technologist: Zoey Bustillos RDMS() Trnscb Date/Time: 01/03/2019 (1040) [email or web address] Orig Print D/T: S: 01/03/2019 (3391) Probe: [id number] PAGE 2 Signed Report- US PELVIS [id number] 13:54:00 Name: RONNIE HERRERA : 1995 Age/S: 23 / F [address] [place] [address] Unit #: [id number] Loc: [id number] Phys: Gume Courtney MD Acct: [id number] Dis Date: Status: REG ER PHONE #: [phone] Exam Date: 01/03/2019 1346 FAX #: [phone] Reason: Pelvic Pain EXAMS: CPTCODE: [id number] US PELVIS COMPLETE [id number] EXAM: US PELVIS TRANSABDOMINAL EXAM: US PELVIS TRANSVAGINAL DATE: 01/03/2019 11:17 AM INDICATION: Pelvic Pain : 1995; Age: 23 years y/o Female COMPARISON: CT 01/03/2019 TECHNIQUE: Multiplanar grayscale and color Doppler ultrasound of the pelvis were obtained transabdominally and transvaginally. Transvaginal examination was performed for better evaluation of endometrium and adnexa. FINDINGS: Uterus/Myometrium: Likely anterior scar is seen. Size: 8.4 x 4.8 x 6.8 cm Echogenicity: Heterogeneous Masses: None. Cervix: Nabothian cysts identified. Otherwise normal cervix. Endometrium: Thickness: 1.6 cm Cysts/Masses: None. Right ovary: Size: 3.8 x 2.5 x 2.7 cm Cysts/Masses: Complex heterogeneous focusis seen measuring 2.1 cm. Left ovary: Size: 3.2 x 1.9 x 2.7 cm Cysts/Masses: 1.6 cm simple cyst. Adnexa: Normal flow in bilateral ovaries. Free fluid: None. IMPRESSION: 1. Complex heterogeneous focus is seen in right ovary measuring 2.1 cm. This may represent hemorrhagic cyst. Follow-up 6-12 weeks pelvic ultrasound is recommended. PAGE 1 Signed Report (CONTINUED) Name: RONNIE HERRERA [facility] : 1995 Age/S: 23 / F [address] [place] [address] Blvd Unit #: [id number] Loc: [place] [address] Phys: Gume Courtney MD Acct: [id number] Dis Date: Status: REG ER PHONE #: [phone] Exam Date: 01/03/2019 1346 FAX #: [phone] Reason: Pelvic Pain EXAMS: CPT CODE: [id number] US PELVIS COMPLETE 91470 <Continued> SL: [id number] at 1354 Reported and signed by: Yi Isabel D.O. 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 [facility] - CT ABD PELVIS W/[id number] 11:11:00 Name: RONNIE HERRERA [place] : 1995 Age/S: 23 / F [address] [place] [address] Blvd Unit #: [id number] Loc: [id number] Phys: Gume Courtney MD Acct: [id number] Dis Date: Status: REG ER PHONE #: [phone] Exam Date: 01/03/2019 1046 FAX #: [phone] Reason: diffuseabd pain, moves to back and left flank EXAMS: CPTCODE: [id number] CT ABD PELVIS W/CONT 90667 STUDY: - CT ABD PELVIS W/CONT 01/03/2019 9:31 AM Ordering Physician: Gume Courtney MD Patient Name: RONNIE HERRERA MR: [id number] : 1995; Age: 23 years y/o Female Clinical Indication: diffuse abd pain, moves to back and left flank Comparison: None TECHNIQUE: Multiple contiguous postcontrast transaxial CT images were obtained from the diaphragm through the symphysis pubis.Sagittal and coronal reformatted images were prepared. IV CONTRAST: 100cc Omnipaque 300 DOSE: CT imaging performed at this location utilizes radiation dose optimization technique which includes one or more of the followin) Automated exposure control; 2) Adjustment of the mA and/or kV according to patient's size; 3) Use of iterative reconstruction techniques. DLP (mGy-cm): 430 CTABDOMEN AND PELVIS WITH CONTRAST: VISUALIZED LUNG BASES: No significant abnormality. BOWEL: Normal nonobstructed bowel gas pattern. Diffuse colonic wall thickening within the right colon, and milder wall thickening within the transverse colon. Mild thickening at the ileocolic junction. APPENDIX: Normal appendix without inflammatory change. STOMACH: Normal for degree of distention. PERITONEUM AND MESENTERY: Free Air: No evidence of pneumoperitoneum. Free Fluid: No evidence of significant free fluid, loculated fluid, peripherally enhancing abscess, or hemorrhage. Mesenteric and peritoneal fat: Normal without focal lesion or inflammation. LYMPH NODES: No lymphadenopathy or mass. VASCULAR: Abdominal Aorta: Normal caliber abdominal aorta without aneurysm or dissection. IVC: Normal caliber nonenhanced. PAGE 1 Signed Report (CONTINUED) Name: RONNIE HERRERA [facility] Shabnam Price : 1995 Age/S: 23 / F [address] [place] [address] Blvd Unit #: [id number] Loc: [place] [address] Phys: Gume Courtney MD Acct: [id number] Dis Date: Status: REG ER PHONE #: [phone] Exam Date: 01/03/2019 1046 FAX #: [phone] Reason: diffuse abd pain, moves to back and left flank EXAMS: CPT CODE: [id number] CT ABD PELVIS W/CONT 83286 <Continued> ABDOMINAL ORGANS: Liver: Normal size and morphology without discrete lesion. Gallbladder: Normal appearing gallbladder without calcified gallstones, gallbladder wall thickening, or pericholecystic inflammation. Biliary Tree: Normal without dilatation. Kidneys: Normal size and morphology without discrete lesion or hydronephrosis. Adrenal Glands: Normal size and morphology without discrete lesion. Pancreas: Normal size and morphology without discrete lesion. Spleen: Normal size and morphology without discrete lesion. PELVIC ORGANS: Urinary bladder: Normal nonenhanced appropriate for degree of distention. Reproductive organs: No organomegaly or mass lesions. SOFT TISSUES: No suspicious soft tissue lesion or abnormality. OSSEOUS STRUCTURES: No fracture, dislocation,or suspicious focal osseous lesion. IMPRESSION: 1. Nonspecific right colonic wall thickening, suggesting colitis. Otherwise, no abnormality identified. SL: [id number] PAGE 2 Signed Report (CONTINUED) Name: RONNIE HERRERAstephanie Price : 1995 Age/S: 23 / F [address] [place] [address] BlvdUnit #: [id number] Loc: [place] [address] Phys: Gume Courtney MD Acct: [id number] Dis Date: Status:REG ER PHONE #: [phone] Exam Date: 01/03/2019 1046 FAX #: [phone] Reason: diffuse abd pain, moves to back and left flank EXAMS: CPT CODE: [id number] CT ABD PELVIS W/CONT 55082 <Continued> at 1111 Reported and signed by: David Dee M.D. CC: Gume Courtney MD; Carline Quiñones MD Technologist:John Brisneo, RT(R)(CT); Harish CTDI: DLP: Trnscb Date/Time: 01/03/2019 (1111) [email or web address] Orig Print D/T: S: 01/03/2019 (6352) PAGE 3 Signed ReportCOMPREHENSIVE METABOLIC [id number] 11:00:00 Test Item Value Reference Range Interpretation Comments SODIUM (test code = NA) 137 mEq/L 134-147 N POTASSIUM (test code = 4.1 mEq/L 3.4-5.0 N K) CHLORIDE (test code = 109 mEq/L 100-108 H CL) CARBON DIOXIDE (test 26 mEq/L 21-33 N code = CO2) ANION GAP (test code = 6 0-20 N GAP) GLUCOSE (test code = 94 mg/dL 70-110 N GLU) BLOOD UREA NITROGEN 18 mg/dL 7-18 N (test code = BUN) GLOMERULAR FILTRATION 122.8 110-120 H Units of measure = RATE (test code = GFR) ml/mi n/1.73 m2 CREATININE (test code = 0.6 mg/dL 0.6-1.3 N CREAT) TOTAL PROTEIN (test 6.6 g/dL 6.4-8.2 N code = PROT) ALBUMIN (test code = 3.40 g/dL 3.4-5.0 N ALB) CALCIUM (test code = 8.7 mg/dL 8.0-10.5 N CA) BILIRUBIN TOTAL (test 0.2 MG/DL <1.5 N code = BILT) SGOT/AST (test code = 17 IUnit/L 15-37 N AST) SGPT/ALT (test code = 23 IUnit/L 15-65 N ALT) ALKALINE PHOSPHATASE 65 IUnit/L 20-125 N TOTAL (test code = ALKP) [id number] 11:00:00 Test Item Value Reference Range Interpretation Comments LIPASE (test code = LIP) 290 IUnit/L 73-393 N HCG SERUM [id number] 11:00:00 Test Item Value Reference Range Interpretation Comments HCG SERUM QUAL (test code = SERUM NEGATIVE NEGATIVE HCGQL) COMPREHENSIVE METABOLIC [id number] 10:54:00 Test Item Value Reference Range Interpretation Comments SODIUM (test code = NA) 137 mEq/L 134-147 N POTASSIUM (test code = K) 4.1 mEq/L 3.4-5.0 N CHLORIDE (test code = CL) 109 mEq/L 100-108 H CARBON DIOXIDE (test code = CO2) 26 mEq/L 21-33 N ANION GAP (test code = GAP) 6 0-20 N GLUCOSE (test code = GLU) 94 mg/dL 70-110 N BLOOD UREA NITROGEN (test code = 18 mg/dL 7-18 N BUN) GLOMERULAR FILTRATION RATE (test 110-120 code = GFR) CREATININE (test code = CREAT) mg/dL 0.6-1.3 TOTAL PROTEIN (test code = PROT) g/dL 6.4-8.2 ALBUMIN (test code = ALB) g/dL 3.4-5.0 CALCIUM (test code = CA) 8.7 mg/dL 8.0-10.5 N BILIRUBIN TOTAL (test code = BILT) MG/DL <1.5 SGOT/AST (test code = AST) IUnit/L 15-37 SGPT/ALT (test code = ALT) IUnit/L 15-65 ALKALINE PHOSPHATASE TOTAL (test IUnit/L 20-125 code = ALKP) [id number] 10:54:00 Test Item Value Reference Range Interpretation Comments LIPASE (test code = LIP) 290 IUnit/L 73-393 N HCG SERUM [id number] 10:54:00 Test Item Value Reference Range Interpretation Comments HCG SERUM QUAL (test code = SERUM NEGATIVE NEGATIVE HCGQL) COMPREHENSIVE METABOLIC [id number] 10:51:00 Test Item Value Reference Range Interpretation Comments SODIUM (test code = NA) mEq/L 134-147 POTASSIUM (test code = K) mEq/L 3.4-5.0 CHLORIDE (test code = CL) mEq/L 100-108 CARBON DIOXIDE (test code = CO2) mEq/L 21-33 ANION GAP (test code = GAP) 0-20 GLUCOSE (test code = GLU) mg/dL 70-110 BLOOD UREA NITROGEN (test code = mg/dL 7-18 BUN) GLOMERULAR FILTRATION RATE (test 110-120 code = GFR) CREATININE (test code = CREAT) mg/dL 0.6-1.3 TOTAL PROTEIN (test code = PROT) g/dL 6.4-8.2 ALBUMIN (test code = ALB) g/dL 3.4-5.0 CALCIUM (test code = CA) mg/dL 8.0-10.5 BILIRUBIN TOTAL (test code = BILT) MG/DL <1.5 SGOT/AST (test code = AST) IUnit/L 15-37 SGPT/ALT (test code = ALT) IUnit/L 15-65 ALKALINE PHOSPHATASE TOTAL (test IUnit/L 20-125 code = ALKP) [id number] 10:51:00 Test Item Value Reference Range Interpretation Comments LIPASE (test code = LIP) IUnit/L 73-393 HCG SERUM [id number] 10:51:00 Test Item Value Reference Range Interpretation Comments HCG SERUM QUAL (test code = SERUM NEGATIVE NEGATIVE HCGQL) UA RFLX MICR CULT IF [id number] 10:49:00 Test Item Value Reference Range Interpretation Comments UA COLOR (test code = COLU) YELLOW YEL/STRAW UA APPEARANCE (test code = CLEAR CLEAR APPU) UA GLUCOSE DIPSTICK (test code NEGATIVE NEGATIVE = DGLUU) UA BILIRUBIN DIPSTICK (test NEGATIVE NEGATIVE code = BILU) UA KETONE DIPSTICK (test code NEGATIVE NEGATIVE = KETU) UA SPECIFIC GRAVITY (test code 1.020 1.005-1.030 N = SGU) UA BLOOD DIPSTICK (test code = NEGATIVE NEGATIVE ZOYA) UA PH DIPSTICK (test code = 6.0 5.0-7.0 N IMAN) UA PROTEIN DIPSTICK (test code NEGATIVE NEGATIVE = PROU) UA UROBILINIOGEN DIPSTICK 0.2 mg/dL 0.2-1.0 (test code = URO) UA NITRITE DIPSTICK (test code NEGATIVE NEGATIVE = DERRICK) UA LEUKOCYTE ESTERASE DIPSTICK NEGATIVE NEGATIVE (test code = LEUU) UA WBC (test code = WBCU) 0-3 WBC/HPF 0-3 UA RBC (test code = RBCU) 0-3 RBC/HPF 0-3 UA WBC NO REFLEX (test code = 0-3 WBC/HPF 0-3 WBCUCL) UA BACTERIA (test code = BACU) NONE SEEN /HPF NONE SEEN UA SQUAMOUS CELLS (test code = 0-5 /HPF NONE SEEN SQU) UA MUCUS (test code = MUCU) TRACE /LPF NONE SEEN Indication for culture: Suprapubic Pain Dysuria/Frequency Flank PainSpecimen Description: CLEAN CATCHCBC W/AUTO [id number] 10:49:00 Test Item Value Reference Range Interpretation Comments WHITE BLOOD CELL (test code = 12.41 x10 3/uL 4.5-11.0 H WBC) RED BLOOD CELL (test code = 4.39 x10 6/uL 3.54-5.02 N RBC) HEMOGLOBIN (test code = HGB) 13.2 g/dL 11.0-15.0 N HEMATOCRIT (test code = HCT) 40.8 % 33.0-45.0 N MEAN CELL VOLUME (test code = 92.9 fL 81.0-99.0 N MCV) MEAN CELL HGB (test code = 30.1 pg 27.0-33.0 N MCH) MEAN CELL HGB CONCETRATION 32.4 g/dL 33.0-37.0 L (test code = MCHC) RED CELL DISTRIBUTION WIDTH CV 13.9 % 11.5-14.5 N (test code = RDW) RED CELL DISTRIBUTION WIDTH SD 48.1 fL 37.0-54.0 N (test code = RDW-SD) PLATELET COUNT (test code = 208 x10 3/uL 150-400 N PLT) MEAN PLATELET VOLUME (test 12.2 fL 7.0-9.0 H code = MPV) NEUTROPHIL % (test code = NT%) 76.1 % 56.0-77.0 N IMMATURE GRANULOCYTE % (test 0.5 % 0.0-2.0 N code = IG%) LYMPHOCYTE % (test code = LY%) 13.1 % 14.0-32.0 L MONOCYTE % (test code = MO%) 7.2 % 4.8-9.0 N EOSINOPHIL % (test code = EO%) 2.7 % 0.3-3.7 N BASOPHIL % (test code = BA%) 0.4 % 0.0-2.0 N NUCLEATED RBC % (test code = 0.0 % 0-0 N NRBC%) NEUTROPHIL # (test code = NT#) 9.46 x10 3/uL 2.0-7.6 H IMMATURE GRANULOCYTE # (test 0.06 x10 3/uL 0.00-0.03 H code = IG#) LYMPHOCYTE # (test code = LY#) 1.62 x10 3/uL 1.0-3.8 N MONOCYTE # (test code = MO#) 0.89 x10 3/uL 0.1-0.8 H EOSINOPHIL # (test code = EO#) 0.33 x10 3/uL 0.0-0.2 H BASOPHIL # (test code = BA#) 0.05 x10 3/uL 0.0-0.2 N NUCLEATED RBC # (test code = 0.00 x10 3/uL 0.0-0.1 N NRBC#) MANUAL DIFF REQUIRED (test NO code = MDIFF)"
[2021-02-18] MEDS ORDERED: ONDANSETRON 4 MG/2 ML VIAL ONE (22:03)
[2021-02-18 22:09] LABS: Urine Blood Trace-intact (Negative); Urine Glucose Negative (Negative); Urine Protein Negative (Negative); Urine Specific Gravity 1.025 (1.005-1.030)
[2021-02-18 22:20] LABS: Absolute Lymphocytes (CBC) 1.7 K/uL (0.7-4.9); Hematocrit 41.4 % (36.0-45.0); Lymphocytes % 19.6 % (15.3-44.8); MPV 8.6 fL (7.6-11.3)
[2021-02-18 22:20] LABS: Urine Bacteria <20 /HPF (<20); Urine Mucus 1+ /HPF (NONE SEEN); Urine RBC <5 /HPF (NONE SEEN)
[2021-02-18 22:24] LABS: Urine Specific Gravity/Preg 1.025 (1.005-1.030)
[2021-02-18 22:32] LABS: ALT/SGPT 42 U/L (12-78); AST/SGOT 12 U/L (15-37); Albumin 3.6 g/dL (3.4-5.0); Alkaline Phosphatase 72 U/L (45-117); BUN Blood Urea Nitrogen 11 mg/dL (7-18); Bicarbonate 28 mmol/L (21-32); Bilirubin Direct < 0.1 mg/dL (0-0.2); Bilirubin Total 0.3 mg/dL (0.2-1.0); Glucose Level 100 mg/dL (74-106); Lipase 34 U/L (73-393); Potassium 4.1 mmol/L (3.5-5.1); Protein, Total 7.4 g/dL (6.4-8.2); Sodium Level 139 mmol/L (136-145)
[2021-02-18] MEDS ORDERED: FAMOTIDINE 20 MG/2 ML VIAL IV ONE (23:13)
[2021-02-18] MEDS ORDERED: NA CHLORIDE 0.9% 1,000 ML ONE (23:13)
[2021-02-18] MEDS ORDERED: FENTANYL CITR 100 MCG/2 ML ONE (23:14)
--- NOTE | 2021-02-19 01:22 | EDPHYS ---
Physician Documentation [facility] Name: Jyoti Zelaya Age: 25 yrs Sex: Female : 1995 Arrival Date: 02/18/2021 Time: 21:03 Bed 17 Private MD: ED Physician Matt Daly HPI: 02/17 21:47 This 25 yrs old Female presents to ER via Ambulatory with complaints of Abdominal Pain, jmm Back Pain. 21:47 The patient presents with abdominal pain in the epigastric area, in the left lower jmm quadrant. Onset: The symptoms/episode began/occurred today. The symptoms do not radiate. Associated signs and symptoms: Pertinent positives: nausea and vomiting, diarrhea. The symptoms are described as achy, intermittent. Modifying factors: The symptoms are alleviated by nothing, the symptoms are aggravated by nothing. The patient has not experienced similar symptoms in the past. 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 - Social history:: Smoking status: Patient reports the use of cigarette tobacco products, denies chronic smoking, but will smoke occasionally. ROS: 02/17 21:47 Constitutional: Negative for fever, chills, and weight loss, Eyes: Negative for injury, jmm pain, redness, and discharge, ENT: Negative for injury, pain, and discharge, Neck: Negative for injury, pain, and swelling, Cardiovascular: Negative for chest pain, palpitations, and edema, Respiratory: Negative for shortness of breath, cough, wheezing, and pleuritic chest pain. Abdomen/GI: Positive for abdominal pain, nausea and vomiting, diarrhea. All other systems are negative. Exam: 21:47 Constitutional: This is a well developed, well nourished patient who is awake, alert, jmm and in no acute distress. Head/Face: atraumatic. Eyes: EOMI, no conjunctival erythema appreciated ENT: Moist Mucus Membranes Neck: Trachea midline, Supple Chest/axilla: Normal chest wall appearance and motion. Cardiovascular: Regular rate and rhythm. No edema appreciated Respiratory: Normal respirations, no respiratory distress appreciated 21:47 Abdomen/GI: Inspection: obese Bowel sounds: normal, Palpation: soft, mild abdominal tenderness, in the epigastric area, right upper quadrant, left upper quadrant and left lower quadrant. 21:47 Musculoskeletal/extremity: ROM: intact in all extremities. 21:47 Skin: Appearance: Color: normal in color. 21:47 Neuro: Motor: is normal. 21:47 Psych: Behavior/mood is pleasant, cooperative. Vital Signs: 02/18 21:56 BP 93 / 63; Pulse 90; Resp 18; Temp 98.0(TE); Pulse Ox 99% ; Weight 97.52 kg; Height 5 tw5 ft. 3 in. (160.02 cm); Pain 6/10; 21:59 Resp 18; tw5 23:06 BP 94 / 57; Pulse 81; Resp 12; Temp 98.6; Pulse Ox 99% on R/A; shani 02/19 00:37 BP 91 / 58; Pulse 90; Resp 14; Temp 98.5; Pulse Ox 99% on R/A; shani 01:36 BP 91 / 58; Pulse 88; Resp 16; Temp 98.5; Pulse Ox 100% on R/A; Pain 0/10; shani 02/18 21:56 Body Mass Index 38.09 (97.52 kg, 160.02 cm) tw5 MDM: 02/18 22:52 Patient medically screened. [facility] 02/19 01:19 Data reviewed: vital signs, nurses notes. Counseling: I had a detailed discussion with ameya the patient and/or guardian regarding: the historical points, exam findings, and any diagnostic results supporting the discharge/admit diagnosis, lab results, radiology results, the need for outpatient follow up, to return to the emergency department if symptoms worsen or persist or if there are any questions or concerns that arise at home. ED course: Patient is alert and non toxic in appearance in the ED. No signs of resp distress. Patient advised to follow up with her GI. Most likely IBD flare. Patient otherwise given strict return precautions. Patient understood and agrees with the plan of care. . 02/18 21:59 Order name: Basic Metabolic Panel; Complete Time: 22:37 tw5 02/18 21:59 Order name: CBC with Diff; Complete Time: 22:37 tw5 02/18 21:59 Order name: Hepatic Function; Complete Time: 22:37 tw5 02/18 21:59 Order name: Lipase; Complete Time: 22:37 tw5 02/18 22:04 Order name: Urine Microscopic Only; Complete Time: 22:37 tw5 02/18 22:08 Order name: Urine Dipstick-Ancillary; Complete Time: 22:37 EDMS 02/18 22:08 Order name: Urine --Ancillary (enter results) 3 02/18 22:09 Order name: Urine --Ancillary; Complete Time: 22:37 EDMS 02/18 22:21 Order name: Urine Culture EDNY 02/18 22:54 Order name: CT Abd/Pelvis - IV Contrast Only [facility] 02/18 21:47 Order name: Urine Dipstick-Ancillary (obtain specimen); Complete Time: 22:04 tw5 02/18 21:59 Order name: IV Saline Lock; Complete Time: 21:59 tw5 02/18 21:59 Order name: Labs collected and sent; Complete Time: 21:59 tw5 Administered Medications: 02/18 22:03 CANCELLED (Other Intervention Used): Ondansetron 4 mg PO once tw5 22:04 Drug: Zofran (Ondansetron) 4 mg Route: IVP; Site: right antecubital; tw5 23:27 Drug: Pepcid (famotidine) 20 mg Route: IVP; Site: right antecubital; ic1 02/19 01:38 Follow up: Response: No adverse reaction shani 02/18 23:28 Drug: NS 0.9% 1000 ml Route: IV; Rate: 1 bolus; Site: right antecubital; ic1 02/19 01:37 Follow up: Response: No adverse reaction; IV Intake: 1000ml shani 02/18 23:41 Drug: fentaNYL (PF) 25 mcg {Note: Witnessed by ABDI Kay. .} Route: IVP; Site: right ic1 antecubital; 02/19 01:37 Follow up: Response: No adverse reaction shani Disposition: 05:20 Co-signature as Attending Physician, Matt Daly MD. [email or web address] Disposition Summary: 02/19/21 01:21 Discharge Ordered Location: Home jm Condition: Stable jmm Diagnosis - Acute Abdominal Pain jmm Followup: [facility] - With: Private Physician - When: 2 - 3 days - Reason: Recheck today's complaints, Continuance of care, Re-evaluation by your physician Discharge Instructions: - Discharge Summary Sheet jm - Abdominal Pain, Adult jm - Ulcerative Colitis, Adult [facility] Forms: - Medication Reconciliation Form [facility] - Thank You Letter [facility] - Antibiotic Education [facility] - Prescription Opioid Use [facility] Prescriptions: - ondansetron 4 mg Oral tablet,disintegrating - take 1 tablet by ORAL route every 4-6 hours; 20 tablet; Refills: 0, Product jm Selection Permitted - Pepcid 20 mg Oral Tablet - take 1 tablet by ORAL route every 12 hours for 10 days; 20 tablet; Refills: 0, [facility] Product Selection Permitted - Medrol (Kris) 4 mg Oral Tablets, Dose Pack - take 1 tablet by ORAL route as directed - follow package instructions; 1 jmm packet; Refills: 0, Product Selection Permitted - dicyclomine 20 mg Oral Tablet - take 1 tablet by ORAL route 4 times per day; 30 tablet; Refills: 0, Product [facility] Selection Permitted Signatures: Dispatcher [employer] EDMS Guy Cardona PA PA [facility] Matt Daly MD MD [facility] Sylvia Rodriguez [facility] Basilia Gregg RN RN ic1 Eliza Alvarez RN shani Corrections: (The following items were deleted from the chart) 02/18 21:57 21:56 PSHx: None; 22:03 21:59 Ondansetron 4 mg PO once ordered. 22:12 22:04 URINALYSIS+U.LAB.BRZ ordered. EDNY EDMS
--- NOTE | 2021-02-19 01:22 | ER ---
Nurse's Notes [facility] Name: Jyoti Zelaya Age: 25 yrs Sex: Female : 1995 Arrival Date: 02/18/2021 Time: 21:03 Bed 17 Private MD: Diagnosis: Acute Abdominal Pain Presentation: 02/18 21:55 Chief complaint: Spouse and/or significant other states: "I having bad abdominal pain, tw5 and it hurts so bad in my back.". Coronavirus screen: Vaccine status: Patient reports being unvaccinated. Ebola Screen: Patient negative for fever greater than or equal to 101.5 degrees Fahrenheit, and additional compatible Ebola Virus Disease symptoms Patient denies exposure to infectious person. Patient denies travel to an Ebola-affected area in the 21 days before illness onset. Risk Assessment: Do you want to hurt yourself or someone else? Patient reports no desire to harm self or others. Onset of symptoms was February 18, 2021 at 14:00. 21:55 Method Of Arrival: Ambulatory tw5 21:55 Acuity: ANDRZEJ 3 tw5 21:59 Initial Sepsis Screen: Does the patient meet any 2 criteria? No. Patient's initial tw5 sepsis screen is negative. Does the patient have a suspected source of infection? No. Patient's initial sepsis screen is negative. Triage Assessment: 21:56 General: Appears ill, obese, Behavior is calm, cooperative. Pain: Complains of pain in tw5 back and abdomen Pain currently is 6 out of 10 on a pain scale. GI: Reports diarrhea, nausea. 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 - Social history:: Smoking status: Patient reports the use of cigarette tobacco products, denies chronic smoking, but will smoke occasionally. Screenin:59 Abuse screen: Denies threats or abuse. Denies injuries from another. Nutritional tw5 screening: No deficits noted. Tuberculosis screening: No symptoms or risk factors identified. Fall Risk No fall in past 12 months (0 pts). IV access (20 points). Assessment: 23:06 Reassessment: No changes from previously documented assessment. General: Per the pt's shani report,"I've got pain in my stomach...since 2 today...yes, it's happened before. They said it was my ovaries...about 6 months ago. No, I didn't follow-up, yet.". 02/19 01:17 General: The pt ambulated to the bathroom with a steady gait. She is in NAD. . shani 01:39 GI: Bowel sounds present X 4 quads. shani 01:39 GI:. shani Vital Signs: 02/18 21:56 BP 93 / 63; Pulse 90; Resp 18; Temp 98.0(TE); Pulse Ox 99% ; Weight 97.52 kg; Height 5 tw5 ft. 3 in. (160.02 cm); Pain 6/10; 21:59 Resp 18; tw5 23:06 BP 94 / 57; Pulse 81; Resp 12; Temp 98.6; Pulse Ox 99% on R/A; shani 02/19 00:37 BP 91 / 58; Pulse 90; Resp 14; Temp 98.5; Pulse Ox 99% on R/A; shani 01:36 BP 91 / 58; Pulse 88; Resp 16; Temp 98.5; Pulse Ox 100% on R/A; Pain 0/10; shani 02/18 21:56 Body Mass Index 38.09 (97.52 kg, 160.02 cm) tw5 ED Course: 02/18 21:03 Patient arrived in ED. ja2 21:56 Triage completed. tw5 21:56 Arm band placed on right wrist. tw5 21:59 Initial lab(s) drawn, by me, sent to lab. Inserted saline lock: 20 gauge in right tw5 antecubital area, using aseptic technique. Blood collected. 22:04 Lipase Sent. tw5 22:04 Basic Metabolic Panel Sent. tw5 22:04 CBC with Diff Sent. tw5 22:04 Hepatic Function Sent. tw5 22:36 [facility] Cardona PA is [facility]CP[facility] 22:36 Matt Daly MD is Attending Physician. [facility] 23:06 Eliza Alvarez, RN is Primary Nurse. shani 23:06 Patient has correct armband on for positive identification. 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 Pulse shani ox on. NIBP on. Door closed. Noise minimized. Warm blanket given. 23:36 CT Abd/Pelvis - IV Contrast Only In Process Unspecified. EDMS 23:58 Urine --Ancillary (enter results) Sent. shani 02/19 00:37 No apparent distress. Appears to be sleeping. shani 01:38 intact, bleeding controlled, No redness/swelling at site. Pressure dressing applied. shani 01:39 No provider procedures requiring assistance completed. shani Administered Medications: 02/18 22:03 CANCELLED (Other Intervention Used): Ondansetron 4 mg PO once tw5 22:04 Drug: Zofran (Ondansetron) 4 mg Route: IVP; Site: right antecubital; tw5 23:27 Drug: Pepcid (famotidine) 20 mg Route: IVP; Site: right antecubital; ic1 02/19 01:38 Follow up: Response: No adverse reaction shani 02/18 23:28 Drug: NS 0.9% 1000 ml Route: IV; Rate: 1 bolus; Site: right antecubital; ic1 02/19 01:37 Follow up: Response: No adverse reaction; IV Intake: 1000ml shani 02/18 23:41 Drug: fentaNYL (PF) 25 mcg {Note: Witnessed by ABDI Kay. .} Route: IVP; Site: right ic1 antecubital; 02/19 01:37 Follow up: Response: No adverse reaction shani Intake: 01:37 IV: 1000ml; Total: 1000ml. shani Outcome: 01:21 Discharge ordered by MD. hou 01:38 Discharged to home ambulatory. shani 01:38 Condition: stable 01:38 Discharge instructions given to patient. 01:50 Patient left the ED. shani Signatures: Dispatcher [employer] EDMS Guy Cardona PA PA jmm Alexander, Jessica ja2 [place], Tiffany tw5 Eliza Alvarez, RN RN Basilia Logan RN RN ic1 Corrections: (The following items were deleted from the chart) 02/18 21:57 21:56 PSHx: None; tw5 tw5
[2021-02-19 02:01] VITALS: BP 91/58; TEMP 98.5
[2021-02-19 02:03] VITALS: O2SAT 100
--- NOTE | 2021-02-19 13:10 | RAD REPORT ---
EXAM DESCRIPTION: CT - Abdomen Pelvis W Contrast - 02/19/2021 7:21 am CLINICAL HISTORY: 25 years Female ABD PAIN TECHNIQUE: Contiguous axial images obtained through the abdomen and pelvis following intravenous con trast administration. Coronal and sagittal reformatted images provided. This CT exam was performed according to our departmental dose-optimization program, which includes on e or more of the following dose reduction techniques: automated exposure control, adjustment of the m A and/or kV according to patient size, and/or use of iterative reconstruction technique. COMPARISON: No prior exams provided for comparison. FINDINGS: The lung bases, liver, biliary tree, gallbladder, pancreas, spleen, adrenal glands, kidney s, urinary bladder, and osseous structures are normal. Trace contrast in the colon. No bowel inflammation, obstruction, pneumatosis, free intraperitoneal ai r, abscess, or ascites. Normal appendix. 2 cm right ovarian cyst is physiologic in appearance. Normal left ovary and uterus. IMPRESSION: No acute abdominal or pelvic abnormalities. Electronically signed by: Tri Yu MD 02/18/2021 11:47 PM [employer] Due to temporary technical issues with the PACS/Fluency reporting system, reports are being signed by the in house radiologist without review as a courtesy to ensure prompt reporting. The interpreting r adiologist is fully responsible for the content of the report.
== END 2021-02-19 01:50 | disposition home or self-care (01) ==
LOC: ER 21:00
DX: R10.9 Unspecified abdominal pain (principal); F17.210 Nicotine dependence, cigarettes, uncomplicated
CPT/HCPCS: 36415; 74177; 80048; 80076; 81003; 81015; 81025; 83690; 85025; 87086; 87088; 96374; 96375; 99284; J2405; J3010; J7030; Q9967

== ENCOUNTER 2021-03-07 19:24 | Emergency (ER) | payer OTHER ==
--- OUTSIDE RECORDS SUMMARY | 2021-03-07 19:31 | XMS REPORT | Continuity of Care Document ---
:1995 Author Organization [facility] t Address [address] [place] [address] Care Team Providers Name Role Phone Saucedo Attending Clinician Unavailable Micki PATTON Attending Clinician Unavailable Brisa LAUREANO Attending Clinician Unavailable SCAR Attending Clinician Unavailable Nurse, Urgent Attending Clinician Unavailable Scar MORRISON Attending Clinician Jonas Attending Clinician Dafne MANAGER OF HOSPITAL Attending Clinician Rory MORRISON Attending Clinician Teqwshwetha DO Attending Clinician Singer MENDOZA Attending Clinician Germaine MORRISON Attending Clinician Thien MORRISON Attending Clinician Brianna HUIZAR Attending Clinician Unavailable CHELA COFFEY Attending Clinician Unavailable Lzi TAPIA Attending Clinician Unavailable EDWARD SEWELL Attending Clinician Unavailable Chase Valadez Attending Clinician Unavailable Physician, Primary or Family Admitting Clinician Unavailabl e Ezzo MD Admitting Clinician Thien MORRISON Admitting Clinician CHELA COFFEY Admitting Clinician Unavailable Gt Quiñones Admitting Clinician Unavailable Payers Payer Name Policy Type Policy Number Effective Date Expiration Date [facility] [id number] 2017 CHOICE MEDICAID 00:00:00 BCBS [facility] - [id number] 2017 OUT OF STATE 00:00:00 Problems Condition Condition Condition Status Onset Resolution Last Treating Co mments Source Name Details Category Date Date Treatment Clinician Date Abdominal Abdominal Disease Active Uni vers pain pain 6-25 ity of 00:00: [place] 00 Medical Branch Intractabl Intractabl Disease Active U nivers e pain e pain 5-12 ity of 00:00: [place] 00 Medical Branch Status Status Disease Active 2018- Univers post post 2-12 ity of repeat low repeat [place] 00:[place] transverse transverse 00 Me dical Branch section section Status Status Disease Active 2018- Univers post tubal post tubal 2-12 it y of ligation ligation 00:00: [place] at time of at time of 00 Me dical delivery, delivery, Bran ch current current hospitaliz hospitaliz ation ation 39 weeks 39 weeks Disease Active Unive rs gestation gestation 2-12 ity of of of 00:00: [place] 00 [facility] Branch Disease Active Uni vers complicate complicate 2-12 it y of d by d by 00:00: [place] noncomplia noncomplia 00 Me dical nce, nce, Branch antepartum antepartum Maternal Maternal Disease Active Unive rs care due care due 2-11 ity of to low to low 00:00: [place] transverse transverse 00 Me dical uterine uterine Branch scar from scar from previous previous delivery delivery Generalize Generalize Disease Active 2019- U nivers d d 1-18 it[place] of abdominal abdominal [place] pain pain 00 [place] Nausea & Nausea & Disease Active 2018- Unive rs vomiting vomiting 1-18 ity of 00:00: [place] 00 Medical Branch 35 weeks 35 weeks Disease Active 2018- Unive rs gestation gestation 1-17 ity of of of 00:00: [place] 00 [facility] Branch Back pain Back pain Disease Active 2019-0 Uni vers affecting affecting 1-17 [place] of [place] in third in third 00 Medica l trimester trimester Bran ch Gastroesop Gastroesop Disease Active 2019-0 U nivers hageal hageal 1-17 ity of reflux reflux 00:00: [place] during during 00 Medical Bran ch in third in third trimester, trimester, antepartum antepartum Previous Previous Disease Active 2019-0 Unive rs 1-15 ity of delivery delivery 00:00: [place] affecting affecting 00 [facility] Bran ch Disease Active 2019-0 Univers uterine uterine 1-15 ity of contractio contractio [place] 00 Medical Branch Multiparit Multiparit Disease Active 2019-0 U nivers y y 1-15 ity of 00:00: [place] 00 Medical Branch Insufficie Insufficie Disease Active 2019-0 U nivers nt nt 1-15 ity of 00:00: [place] care in care in 00 Medical third third Branch trimester trimester Obesity Obesity Disease Active 2018- Univers (BMI (BMI 2-17 ity of 30-39.9) 30-39.9) 00:00: [place] 00 Medical Branch Lower Lower Disease Active 2018-0 Univers abdominal abdominal 6-20 ity of pain pain 00:00: [place] 00 Medical Branch Nausea and Nausea and Disease Active 2018-0 U nivers vomiting vomiting 6-20 ity of 00:00: [place] 00 Medical Branch Allergies, Adverse Reactions, Alerts Allergy Allergy Status Severity Reaction(s) Onset Inactive Treating Comm ents Source Name Type Date Date Clinician No Known DA Active U 2020- [facility] Allergie 5-05 Clear s 00:00: [place] 00 [facility] No Known DA Active U 2020-0 [facility] Allergie 5-05 Clear s 00:00: [place] 00 [facility] No Known DA Active U 2020-0 [facility] Allergie 2-01 Clear s 00:00: Price [facility] No Known DA Active U 2020- [facility] Allergie 2-01 Clear s 00:00: [place] 00 [facility] No Known DA Active U [facility] Allergie 8-03 Clear s 00:00: Price [facility] No Known DA Active U [facility] Allergie 8-03 Clear s 00:00: Price 00 [facility] NO KNOWN Drug Active Univers ALLERGIE Class ity of S [facility] Social History Social Habit Start Date Stop Date Quantity Comments Source Exposure to Not sure [facility]-CoV-2 [facility] (event) [place] Tobacco Comment 2020-08-09 2020-08-09 4-5 ocassionally Uni versity of 00:00:00 00:00:00 per day [facility] Tobacco use and 2020-08-09 2020-08-09 Never used Universit y of exposure 00:00:00 00:00:00 [facility] Alcohol intake 2020-08-09 2020-08-09 Current drinker of Un iversity of 00:00:00 00:00:00 alcohol (finding) [facility] Sex Ass[birth year] At [birth year] Universit y of 00:00:00 00:00:00 [facility] Smoking Status Start Date Stop Date Source Current some day smoker 2020-08-09 00:00:00 Univ ersity [facility] Never smoker [facility] Medications Ordered Filled Start Stop Current Ordering [...] First dose Branch (after last reorder) on 08/09/20 at 2000, Until Discontinu ed, Routine carvediloL [...] 1630, Until Discontinu ed, Routine NaCl 0.9% 2020- No 1000mL at 125 Uni vers (NS) IV 08-09 06-26 mL/hr, IV ity of infusion 20:00: 02:08 Infusion, [place] as 1,000 mL 00 :45 CONTINUOUS Medic al , Starting Branch Wed08/09/20 at 1500, Until Wed08/09/20 at 2108, Routine ondansetron Yes 4mg 4 mg, Slow Univers (ZOFRAN 08-09 IV Push, ity of (PF)) 19:55: Q6HPRN, [place] injection 4 19 Starting Medi juan daniel mg Fri Branch 08/09/20 at 1455, Until Discontinu ed, Routine, Nausea and Vomiting (N/V) HYDROcodone 2020- No 1{tbl} 1 tablet, Univers -acetaminop 08-09 Oral, ity of hen (NORCO 19:55: 19:54 Q6HPRN, [place] 5) 5-325 mg 10 :10 Starting Medi juan daniel tablet 1 Wed [place] tablet 08/09/20 at 1455, Until 08/11/20 at 1454, Routine, Pain (scale 4-6) acetaminoph 0 Yes 650mg 650 mg, Un kimmy en 08-09 Oral, ity of (TYLENOL) 19:55: Q6HPRN, [place] tablet 650 03 Starting Medic al mg Fri Branch 08/09/20 at 1455, Until Discontinu ed, Routine, Pain (scale 1-3) dicyclomine 0 Yes 10mg 10 mg, Univ ers (BENTYL) 08-09 Oral, ity of capsule 10 19:47: Q8HPRN, [place] mg 15 Starting Medical Fri Branch 08/09/20 at 1447, Until Discontinu ed, Routine, Abdominal pain cyclobenzap Yes 5mg 5 mg, Unive rs rine [...] 08/09/20 at 1415, STAT iopamidol 2020- No [id number] 100mL 100 mL, Univers (ISOVUE 08-09 Intravenou [...] 1 [place] mg 00 :00 dose, Wed [facility] 08/09/20 at Branch 1215, STAT dicyclomine Yes 20mg 20 mg, Univ ers (BENTYL) 08-09 Intramuscu ity o f injection 17:00: lar, QID, [place] 20 mg 00 First dose Medical on Wed [place] 08/09/20 at 1200, Until Discontinu ed, Routine ketorolac 2020- No 30mg 30 mg, Unive rs (TORADOL) 08-09 Intramuscu ity of injection 16:30: 17:34 lar, ONCE, [place] 30 mg 00 :00 1 dose, Medical Wed [place] 08/09/20 at 1130, WILMAN
Fa culty member approving Restricted medication : SAGE LEOS metoclopram 2020- No 10mg 10 mg, Uni vers toni HCl 08-09 Slow IV ity of (REGLAN) 16:15: 16:47 Push, [place] injection 00 :00 ONCE, 1 Medical 10 mg dose, Wed [place] 08/09/20 at 1115, WILMAN pantoprazol 2020- No 40mg 40 mg, Uni vers e 08-09 Slow IV ity of (PROTONIX) 16:15: 16:46 Push, [place] injection 00 :00 ONCE, 1 Medical 40 mg dose, Wed [place] 08/09/20 at 1115, WILMAN NaCl 0.9% 2020- No 1000mL at 999 Uni vers (NS) bolus 08-09 mL/hr, ity of infusion 16:15: 17:34 1,000 mL, [place] as 1,000 mL 00 :00 IV Medical Infusion, Branch ONCE, 1 dose, Wed08/09/20 at 1115, WILMAN dicyclomine Yes 10mg 10 mg, Univ ers (BENTYL) 07-31 Oral, QID, ity o f capsule 10 13:00: First dose [place] mg 00 on Wed [facility] 07/31/20 at Branch 0800, Until Discontinu ed, [...] Last dose on Wed07/31/20 at 1800, Routine
member of parliament approving Restricted medication : RODO NETTLES diphenhydrA 2020- No 50mg 50 mg, Uni vers MINE 07-31 Slow IV ity of (BENADRYL) 04:00: 02:55 Push, [place] injection 00 :00 ONCE, 1 Medical 50 mg dose, [facility] 07/30/20 at 2300, STAT haloperidol 2020- No 2.5mg 2.5 mg, U nivers lactate 07-31 Intravenou ity o f (HALDOL) 03:45: 02:55 s, ONCE, 1 [place] injection 00 :00 dose, [facility] Medic al 2.5 mg 07/30/20 at Branch 2245, STAT sodium Yes 5mL 5 mL, Univers chloride 07-31 Intravenou ity o f (NS) 02:39: s, PRN, [place] injection 5 06 Starting Medi juan daniel mL [facility] 07/30/20 at 2139, Until Discontinu ed, Routine, IV line flushing sucralfate Yes [id number] 1g Take 1 Univers 1 gram 6-16 tablet by ity of tablet 00:00: mouth [place] 00 before Medical meals and Branch at bedtime. dicyclomine Yes [id number] 10mg Take 1 Univers 10 mg 6-16 capsule by ity of capsule 00:00: mouth [place] 00 every 8 Medical (eight) Branch hours as needed for Abdominal pain. ondansetron Yes [id number] 4mg Take 1 Univers 4 mg 6-16 tablet by ity of disintegrat 00:00: mouth [place] ing tablet 00 every 8 Medica l (eight) Branch hours as needed for Nausea and Vomiting (N/V). ciprofloxac 2021-0 Yes [id number] 500mg Take 1 Univers in HCl 500 6-16 tablet by ity of mg tablet 00:00: mouth (two) Medical times Branch daily. metroNIDAZO 2021-0 Yes [id number] 500mg Take 1 Univers LE 500 mg 6-16 tablet by ity o f tablet 00:00: mouth (two) Medical times Branch daily. sucralfate 202-0 Yes [id number] 1g Take 1 Univers 1 gram 6-16 tablet by ity of tablet 00:00: mouth 00 before Medical meals and Branch at bedtime. dicyclomine 2020-0 Yes [id number] 10mg Take 1 Univers 10 mg 6-16 capsule by ity of capsule 00:00: mouth [place] 00 every 8 Medical (eight) Branch hours as needed for Abdominal pain. ondansetron 2020-0 Yes [id number] 4mg Take 1 Univers 4 mg 6-16 tablet by ity of disintegrat 00:00: mouth [place] ing tablet 00 every 8 Medica l (eight) Branch hours as needed for Nausea and Vomiting (N/V). ciprofloxac 2020-0 Yes [id number] 500mg Take 1 Univers in HCl 500 6-16 tablet by ity of mg tablet 00:00: mouth (two) Medical times Branch daily. metroNIDAZO 202-0 Yes [id number] 500mg Take 1 Univers LE 500 mg 6-16 tablet by ity o f tablet 00:00: mouth (two) Medical times Branch daily. sucralfate 2020-0 Yes [id number] 1g Take 1 Univers 1 gram 6-16 tablet by ity of tablet 00:00: mouth [place] 00 before Medical meals and Branch at bedtime. dicyclomine 2020-0 Yes [id number] 10mg Take 1 Univers 10 mg 6-16 capsule by ity of capsule 00:00: mouth [place] 00 every 8 Medical (eight) Branch hours as needed for Abdominal pain. ondansetron 2020-0 Yes [id number] 4mg Take 1 Univers 4 mg 6-16 tablet by ity of disintegrat 00:00: mouth [place] ing tablet 00 every 8 Medica l (eight) Branch hours as needed for Nausea and Vomiting (N/V). ciprofloxac 2021-0 Yes [id number] 500mg Take 1 Univers in HCl 500 6-16 tablet by ity of mg tablet 00:00: mouth (two) Medical times Branch daily. metroNIDAZO 2021-0 Yes [id number] 500mg Take 1 Univers LE 500 mg 6-16 tablet by ity o f tablet 00:00: mouth (two) Medical times Branch daily. sucralfate 2020-0 Yes [id number] 1g Take 1 Univers 1 gram 6-16 tablet by ity of tablet 00:00: mouth 00 before Medical meals and Branch at bedtime. dicyclomine 2020-0 Yes [id number] 10mg Take 1 Univers 10 mg 6-16 capsule by ity of capsule 00:00: mouth [place] 00 every 8 Medical (eight) Branch hours as needed for Abdominal pain. ondansetron 2020-0 Yes [id number] 4mg Take 1 Univers 4 mg 6-16 tablet by ity of disintegrat 00:00: mouth [place] ing tablet 00 every 8 Medica l (eight) Branch hours as needed for Nausea and Vomiting (N/V). ciprofloxac 2020-0 Yes [id number] 500mg Take 1 Univers in HCl 500 6-16 tablet by ity of mg tablet 00:00: mouth (two) Medical times Branch daily. metroNIDAZO 2020-0 Yes [id number] 500mg Take 1 Univers LE 500 mg 6-16 tablet by ity o f tablet 00:00: mouth (two) Medical times Branch daily. sucralfate 2020-0 Yes [id number] 1g Take 1 Univers 1 gram 6-16 tablet by ity of tablet 00:00: mouth 00 before Medical meals and Branch at bedtime. dicyclomine 2020-0 Yes [id number] 10mg Take 1 Univers 10 mg 6-16 capsule by ity of capsule 00:00: mouth [place] 00 every 8 Medical (eight) Branch hours as needed for Abdominal pain. ondansetron 2020-0 Yes [id number] 4mg Take 1 Univers 4 mg 6-16 tablet by ity of disintegrat 00:00: mouth [place] ing tablet 00 every 8 Medica l (eight) Branch hours as needed for Nausea and Vomiting (N/V). ciprofloxac Yes [id number] 500mg Take 1 Univers in HCl 500 6-16 tablet by ity of mg tablet 00:00: mouth 2 [place] 00 (two) Medical times Branch daily. metroNIDAZO Yes [id number] 500mg Take 1 Univers LE 500 mg 6-16 tablet by ity o f tablet 00:00: mouth 2 [place] 00 (two) Medical times Branch daily. SERTraline Yes 50mg 50 mg, Unive rs (ZOLOFT) 5-13 Oral, ity of tablet 50 14:00: DAILY, [place] mg 00 First dose Medical on [facility] Branch 06/27/20 at 0900, Until Discontinu ed, Routine omeprazole Yes 20mg 20 mg, Unive rs (PRILOSEC) 5-13 Oral, ity of capsule 20 14:00: DAILY, [place] mg 00 First dose Medical on [facility] Branch 06/27/20 at 0900, Until Discontinu ed, Routine ondansetron Yes 4mg 4 mg, Slow Univers (ZOFRAN 5-13 IV Push, ity of (PF)) 03:02: Q4HPRN, [place] injection 4 34 Starting Medi juan daniel mg Wed Branch 06/26/20 at 2202, Until Discontinu ed, Routine, Nausea and Vomiting (N/V) ketorolac No 15mg 15 mg, Unive rs (TORADOL) 5-13 [...] ed, Routine, Pain (scale 4-6) carvediloL Yes [id number] 6.25mg Take 1 Univers 6.25 mg 5-13 tablet by ity of tablet 00:00: mouth (two) Medical times Branch daily with meals. carvediloL 1-0 Yes [id number] 6.25mg Take 1 Univers 6.25 mg 5-13 tablet by ity of tablet 00:00: mouth 2 (two) Medical times Branch daily with meals. carvediloL 2020-0 Yes [id number] 6.25mg Take 1 Univers 6.25 mg 5-13 tablet by ity of tablet 00:00: mouth (two) Medical times Branch daily with meals. carvediloL 1-0 Yes [id number] 6.25mg Take 1 Univers 6.25 mg 5-13 tablet by ity of tablet 00:00: mouth (two) Medical times Branch daily with meals. carvediloL 2020-0 Yes [id number] 6.25mg Take 1 Univers 6.25 mg 5-13 tablet by ity of tablet 00:00: mouth (two) Medical times Branch daily with meals. carvediloL 2020-0 Yes [id number] 6.25mg Take 1 Univers 6.25 mg 5-13 tablet by ity of tablet 00:00: mouth (two) Medical times Branch daily with meals. [...] ed, Routine, Muscle Spasms, back pain bisacodyL 2021-0 Yes 10mg 10 mg, Univer s (DULCOLAX) 06-26 Rectal, ity of suppository 19:39: QDAILYPRN, [place] 10 mg [address] [facility] 06/26/20 at 1439, Until Discontinu ed, Routine, Constipati on HYDROcodone 2020- No 1{tbl} 1 tablet, Univers -acetaminop 06-26 Oral, ity of hen (NORCO 19:30: 18:46 ONCE, 1 [place] 5) 5-325 mg 00 :00 dose, Wed Med ical tablet 1 06/26/20 at [facility] tablet 1430, WILMAN morpHINE 2020- No 4mg 4 mg, Slow Un kimmy injection 4 06-26 IV Push, ity of mg 18:30: 18:47 ONCE, 1 [place] 00 :00 dose, [facility] 06/26/20 at Branch 1330, STAT proMETHazin 2020- No 12.5mg 12.5 mg, Univers e 06-26 IV ity of (PHENERGAN) 17:15: 18:19 [place]gy[place], [place] 12.5 mg in 00 :00 ONCE, 1 Medica l NaCl 0.9% dose, [facility] h (NS) 50 mL 06/26/20 at piggyback 1215, 50 mL iopamidol 2020- No [id number] 100mL 100 mL, Univers (ISOVUE 06-26 Intravenou ity o f 370-500 mL) 16:45: 16:45 s, ONCE, 1 [place] injection 00 :00 dose, [facility] Medic al 100 mL 06/26/20 at Branch 1145, Routine morpHINE 2020- No 6mg 6 mg, Slow Un kimmy injection 6 06-26 IV Push, ity of mg 16:15: 16:35 ONCE, 1 [place] 00 :00 dose, [facility] 06/26/20 at Branch 1115, STAT ketorolac 2020- No 15mg 15 mg, Unive rs (TORADOL) 06-26 Slow IV ity of injection 16:00: 15:20 Push, [place] 15 mg 00 :00 ONCE, 1 Medical dose, [facility] 06/26/20 at 1100, [facility] : DWAIN MENDEZ lactated 2020- No 1000mL at 999 Univ ers ringers IV 06-26 mL/hr, ity of infusion 15:45: 14:45 1,000 mL, [place] 1,000 mL 00 :00 Intravenou Medic al s, ONCE, 1 Branch dose, [facility] 06/26/20 at 1045, Routine ondansetron 2020- No 4mg 4 mg, Slow Univers (ZOFRAN 06-26 IV Push, ity of (PF)) 14:45: 15:01 Administer [place] injection 4 00 :00 over 15 Medic al mg Minutes, Branch ONCE, 1 dose, [facility] 06/26/20 at 0945, STAT famotidine 2020- No 20mg 20 mg, Univ ers (PEPCID 06-26 Intravenou ity o f (PF)) 14:45: 14:50 s, ONCE, 1 [place] injection 00 :00 dose, [facility] Medic al 20 mg 06/26/20 at Branch 0945, WILMAN SERTraline Yes [id number] 50mg Take 1 U nivers (ZOLOFT) 50 2-25 tablet by ity of mg tablet 00:00: mouth [place] 00 daily. [facility] SERTraline Yes [id number] 50mg Take 1 U nivers (ZOLOFT) 50 2-25 tablet by ity of mg tablet 00:00: mouth [place] 00 daily. [facility] SERTraline Yes [id number] 50mg Take 1 U nivers (ZOLOFT) 50 2-25 tablet by ity of mg tablet 00:00: mouth [place] 00 daily. [facility] SERTraline Yes [id number] 50mg Take 1 U nivers (ZOLOFT) 50 2-25 tablet by ity of mg tablet 00:00: mouth [place] 00 daily. [facility] SERTraline Yes [id number] 50mg Take 1 U nivers (ZOLOFT) 50 2-25 tablet by ity of mg tablet 00:00: mouth [place] 00 daily. [facility] SERTraline Yes [id number] 50mg Take 1 U nivers (ZOLOFT) 50 2-25 tablet by ity of mg tablet 00:00: mouth [place] 00 daily. Medical Branch ibuprofen Yes [id number] 600mg Take 1 Univers 600 mg 2-13 tablet by ity of tablet 00:00: mouth [place] 00 every 6 Medical (six) Branch hours as needed for Pain (scale 1-3) or Pain (scale 4-6) (Pain). Take with food or milk. HYDROcodone Yes [id number] 1{tbl} Take 1-2 Univers -acetaminop 2-13 tablets by it y of hen 5-325 00:00: mouth [place] mg tablet 00 every 6 Medical (six) Branch hours as needed for Pain (scale 4-6) (Pain scale above 4). ibuprofen Yes [id number] 600mg Take 1 Univers 600 mg 2-13 tablet by ity of tablet 00:00: mouth [place] 00 every 6 Medical (six) Branch hours as needed for Pain (scale 1-3) or Pain (scale 4-6) (Pain). Take with food or milk. HYDROcodone Yes [id number] 1{tbl} Take 1-2 Univers -acetaminop 2-13 tablets by it y of hen 5-325 00:00: mouth [place] mg tablet 00 every 6 Medical (six) Branch hours as needed for Pain (scale 4-6) (Pain scale above 4). HYDROcodone Yes [id number] 1{tbl} Take 1-2 Univers -acetaminop 2-13 tablets by it y of hen 5-325 00:00: mouth [place] mg tablet 00 every 6 Medical (six) Branch hours as needed for Pain (scale 4-6) (Pain scale above 4). HYDROcodone Yes [id number] 1{tbl} Take 1-2 Univers -acetaminop 2-13 tablets by it y of hen 5-325 00:00: mouth [place] mg tablet 00 every 6 Medical (six) Branch hours as needed for Pain (scale 4-6) (Pain scale above 4). HYDROcodone Yes [id number] 1{tbl} Take 1-2 Univers -acetaminop 2-13 tablets by it y of hen 5-325 00:00: mouth [place] mg tablet 00 every 6 Medical (six) Branch hours as needed for Pain (scale 4-6) (Pain scale above 4). HYDROcodone Yes [id number] 1{tbl} Take 1-2 Univers -acetaminop 2-13 tablets by it y of hen 5-325 00:00: mouth [place] mg tablet 00 every 6 Medical (six) Branch hours as needed for Pain (scale 4-6) (Pain scale above 4). ibuprofen 2020- No [id number] 600mg Take 1 Univers 600 mg 2-13 06-27 tablet by ity of tablet 00:00: 00:00 mouth [place] 00 :00 every 6 Medical (six) Branch hours as needed for Pain (scale 1-3) or Pain (scale 4-6) (Pain). Take with food or milk. cyclobenzap Yes [id number] 5mg Take 0.5 Univers rine 10 mg 1-19 tablets by ity of tablet 00:00: mouth [place] 00 every 8 Medical (eight) Branch hours as needed for Muscle Spasms (back pain). Do not drive while taking this medication bisacodyl Yes [id number] 10mg Insert 1 Univers 10 mg 1-19 Suppositor ity of suppository 00:00: y [place] 00 rectum Medical once daily Branch as needed for Constipati on. cyclobenzap Yes [id number] 5mg Take 0.5 Univers rine 10 mg 1-19 tablets by ity of tablet 00:00: mouth [place] 00 every 8 Medical (eight) Branch hours as needed for Muscle Spasms (back pain). Do not drive while taking this medication bisacodyl Yes [id number] 10mg Insert 1 Univers 10 mg 1-19 Suppositor ity of suppository 00:00: y [place] 00 rectum Medical once daily Branch as needed for Constipati on. cyclobenzap Yes [id number] 5mg Take 0.5 Univers rine 10 mg 1-19 tablets by ity of tablet 00:00: mouth [place] 00 every 8 Medical (eight) Branch hours as needed for Muscle Spasms (back pain). Do not drive while taking this medication bisacodyl Yes [id number] 10mg Insert 1 Univers 10 mg 1-19 Suppositor ity of suppository 00:00: y [place] 00 rectum Medical once daily Branch as needed for Constipati on. cyclobenzap Yes [id number] 5mg Take 0.5 Univers rine 10 mg 1-19 tablets by ity of tablet 00:00: mouth [place] 00 every 8 Medical (eight) Branch hours as needed for Muscle Spasms (back pain). Do not drive while taking this medication bisacodyl Yes [id number] 10mg Insert 1 Univers 10 mg 1-19 Suppositor ity of suppository 00:00: y into [place] [address] rectum Medical once daily Branch as needed for Constipati on. cyclobenzap Yes [id number] 5mg Take 0.5 Univers rine 10 mg 1-19 tablets by ity of tablet 00:00: mouth [place] 00 every 8 Medical (eight) Branch hours as needed for Muscle Spasms (back pain). Do not drive while taking this medication bisacodyl Yes [id number] 10mg Insert 1 Univers 10 mg 1-19 Suppositor ity of suppository 00:00: y into [place] [address] rectum Medical once daily Branch as needed for Constipati on. cyclobenzap Yes [id number] 5mg Take 0.5 Univers rine 10 mg 1-19 tablets by ity of tablet 00:00: mouth [place] 00 every 8 Medical (eight) Branch hours as needed for Muscle Spasms (back pain). Do not drive while taking this medication bisacodyl Yes [id number] 10mg Insert 1 Univers 10 mg 1-19 Suppositor ity of suppository 00:00: y into [place] [address] rectum Medical once daily Branch as needed for Constipati on. omeprazole Yes [id number] 20mg Take 1 Univers 20 mg 1-17 capsule by ity of capsule 00:00: mouth [place] 00 daily. Medical Branch omeprazole Yes [id number] 20mg Take 1 Univers 20 mg 1-17 capsule by ity of capsule 00:00: mouth [place] 00 daily. Medical Branch omeprazole Yes [id number] 20mg Take 1 Univers 20 mg 1-17 capsule by ity of capsule 00:00: mouth [place] 00 daily. Medical Branch omeprazole Yes [id number] 20mg Take 1 Univers 20 mg 1-17 capsule by ity of capsule 00:00: mouth 00 daily. Medical Branch omeprazole 2019-0 Yes [id number] 20mg Take 1 Univers 20 mg 1-17 capsule by ity of capsule 00:00: mouth 00 daily. [facility] omeprazole 2018-0 Yes [id number] 20mg Take 1 Univers 20 mg 1-17 capsule by ity of capsule 00:00: mouth 00 daily. [facility] Immunizations Ordered Filled Immunization Date Status Comments [facility] e Immunization Name Name Influenza Virus 2013-06-08 Completed Universit y of Vaccine (3+ yrs) 00:00:00 [facility] Influenza Virus 2013-06-08 Completed Universit y of Vaccine (3+ yrs) 00:00:00 [facility] Influenza Virus 2013-06-08 Completed Universit y of Vaccine (3+ yrs) 00:00:00 [facility] [facility] Influenza Virus 2013-06-08 Completed Universit y of Vaccine (3+ yrs) 00:00:00 [facility] Influenza Virus 2013-06-08 Completed Universit y of Vaccine (3+ yrs) 00:00:00 [facility] Influenza Virus 2013-06-08 Completed Universit y of Vaccine (3+ yrs) 00:00:00 [facility] Vital Signs Vital Name Observation Time Observation Value Comments Source Systolic blood 2020-08-11 16:17:00 103 mm[Hg] Univer sity of pressure [facility] Diastolic blood 2020-08-11 16:17:00 54 mm[Hg] Unive rsity of pressure [facility] Heart rate 2020-08-11 16:17:00 55 /min [facility] Body temperature 2020-08-11 16:17:00 36.94 Eileen [facility] Respiratory rate 2020-08-11 16:17:00 16 /min [facility] Oxygen saturation in 2020-08-11 16:17:00 97 /min [facility] Arterial blood by [facility] Pulse oximetry [place] Body height 2020-08-09 20:21:00 162.6 cm [facility] Body weight 2020-08-09 20:21:00 95.437 kg [facility] BMI 2020-08-09 20:21:00 36.12 kg/m2 [facility] Systolic blood 2020-07-31 07:55:00 126 mm[Hg] Univer sity of pressure [facility] Diastolic blood 2020-07-31 07:55:00 77 mm[Hg] Unive rsity of pressure [facility] Branch Heart rate 2020-07-31 07:55:00 102 /min Universi ty of [facility] Respiratory rate 2020-07-31 07:55:00 17 /min Univ ersity of [facility] Oxygen saturation in 2020-07-31 07:55:00 99 /min University of Arterial blood by [facility] Pulse oximetry Branch Body temperature 2020-07-31 02:36:00 36.44 Eileen [facility] ersity of [facility] Body weight 2020-07-31 02:32:00 104.327 kg Universi ty of [facility] BMI 2020-07-31 02:32:00 40.74 kg/m2 Universi ty [facility] Systolic blood 2020-06-27 20:24:00 128 mm[Hg] Univer sity of [facility] Diastolic blood 2020-06-27 20:24:00 77 mm[Hg] Unive rsity of pressure [facility] Heart rate 2020-06-27 20:24:00 85 /min Universi ty of [facility] Body temperature 2020-06-27 20:24:00 37.22 Eileen Univ ersity of [facility] Respiratory rate 2020-06-27 20:24:00 18 /min [facility] ersity of [facility] Oxygen saturation in 2020-06-27 20:24:00 96 /min University of Arterial blood by [facility] Pulse oximetry Branch Body height 2020-06-26 14:33:00 160 cm Universi ty of [place] [facility] [place] Body weight 2020-06-26 14:33:00 104.327 kg Universi ty [facility] BMI 2020-06-26 14:33:00 40.74 kg/m2 Universi [facility] Procedures Procedure Date / Time Performing Clinician Source Performed BASIC METABOLIC PANEL 2020-08-10 09:14:00 James Cruz [facility] (NA, K, CL, CO2, Medical Branch GLUCOSE, BUN, CREATININE, CA) CBC WITH DIFF 2020-08-10 09:14:00 James Cruz [facility] CT ABDOMEN PELVIS W 2020-08-09 18:00:00 Dafne [facility] CONTRAST [facility] COVID-19 (ID NOW RAPID 2020-08-09 17:41:00 Dafne [facility] TESTING) Medical Branch US PELVIS COMPLETE WITH 2020-08-09 17:20:22 Dafne [facility] TRANSVAGINAL Medical Branch AMYLASE 2020-08-09 16:46:00 Dafne [place] LIPASE 2020-08-09 16:46:00 Dafne [place] TEST, SERUM 2020-08-09 16:46:00 Dafne [facility] HEPATIC FUNCTION PANEL 2020-08-09 16:46:00 Dafne [facility] ([id number]) (ALB,T.PRO,BILI [facility] T,BU/BC,ALT,AST,ALK PHOS) BASIC METABOLIC PANEL 2020-08-09 16:46:00 Dafne [facility] (NA, K, CL, CO2, Medical Branch GLUCOSE, BUN, CREATININE, CA) CBC WITH DIFF 2020-08-09 16:46:00 Dafne [place] US OVARY TORSION 2020-07-31 06:12:59 Singer [facility] CT ABDOMEN PELVIS WO 2020-07-31 03:31:19 [facility] 2020-07-31 02:41:00 Singer [facility] COMP. METABOLIC PANEL 2020-07-31 02:41:00 Singer [facility] ([id number]) Medical Branch CBC WITH DIFF 2020-07-31 02:41:00 Singer [facility] URINALYSIS 2020-07-31 02:41:00 Singer [facility] POCT TEST 2020-07-31 02:41:00 Rodo Nettles [facility] COVID-19 (ID NOW RAPID 2020-06-26 18:53:00 [facility] T[facility]ION 2020-06-26 17:39:53 Germaine [facility] CT ABDOMEN PELVIS W 2020-06-26 15:39:18 Germaine [facility] CONTRAST [facility] URINE DRUG (IMMUNOASSAY) 2020-06-26 14:51:00 Germaine Dwain [facility] SCREEN URINALYSIS 2020-06-26 14:51:00 Germaine [facility] EXTRA TUBE URINE CULTURE 2020-06-26 14:51:00 Germaine Dwain [facility] POCT TEST 2020-06-26 14:41:00 Germaine [facility] LIPASE 2020-06-26 14:36:00 Germaine [facility] TEST, SERUM 2020-06-26 14:36:00 [facility]EL 2020-06-26 14:36:00 Germaine [facility] ([id number]) ([facility] T,BU/BC,ALT,AST,ALK PHOS) BASIC METABOLIC PANEL 2020-06-26 14:36:00 Germaine [facility] (NA, K, CL, CO2, [facility] GLUCOSE, BUN, CREATININE, CA) ETHANOL 2020-06-26 14:36:00 Germaine [facility] CBC WITH DIFF 2020-06-26 14:36:00 Germaine [facility] Encounters Start End Encounter Admission Attending Care Care Encounter Source Date/Time Date/Time Type Type Clinicians Facility Department ID 2020-12-16 Emergency [facility] [id number] Univers 03:51:54 [facility] 2020-12-16 Emergency [facility] [id number] Univers 01:28:53 [facility] 2020-12-15 Emergency [facility] [id number] Univers 18:36:19 [facility] 2020-06-19 Inpatient [facility] [place] [id number] [facility] 23:16:00 [id number] [facility] 2020-04-15 Inpatient [facility] [place] [id number] [facility] 11:44:00 [id number] [facility] 2020-03-18 Inpatient [facility] [place] [id number] [facility] 10:31:00 [id number] [facility] 2021-01-03 2021-01-03 Emergency EM John Saucedo [facility] AERS [id number] [facility] 11:01:00 12:15:00 [id number] [facility] 2021-01-03 2021-01-03 Emergency EM John Saucedo [facility] [id number] [facility] 11:01:00 11:01:00 80 [facility] 2020-10-02 2020-10-02 Letter TORIBIO Sweet [id number] Univers 00:00:00 00:00:00 (Out) Susan JOSEPH 350.1.13.10 ity [facility] 4.2.7.2.686 Michael as [phone] [address] 2020-10-01 2020-10-01 Outpatient R [facility] [id number] Univers 18:30:00 18:30:00 [id number] [facility]-10[facility]01 2020-10-01 Outpatient R GEORGI [facility] [id number] Univers 18:30:00 18:30:00 [facility] 2020-09-30 2020-09-30 Outpatient R [facility] [id number] Univers 19:00:00 19:00:00 [id number] ity [facility] 2020-09-30 2020-09-30 Outpatient R SCAR [facility] [id number] Univers 19:00:00 19:00:00 HILDA ity [facility] 2020-09-30 2020-09-30 Laboratory Nurse, Jalyn Zamarripa 1.2.8 [id number] Univers 18:26:09 18:41:09 Only Hilda Byrne Pediatric 350.1.1 3.10 ity [place] [id number] [facility] Primary [address] [facility] 2020-08-13 2020-08-13 Transition Anny Mcdaniel [id number] Univers 00:00:00 00:00:00 of Care Belen Tang 350.1.13.10 ity [place] [phone] [facility] 403 Branch 2020-08-09 2020-08-11 Hospital Sage Leos [facility] [id number] Univers 11:09:00 13:46:00 Encounter Riley Valadez [facility] 350.1.13.10 ity of [place] 4.2.7.2.686 [place] Price [phone] [facility] 113 Branch ([facility]) 2020-07-30 2020-07-31 Emergency Singer [facility] [id number] Univers 21:29:00 03:04:00 Rodo [place] 350.1.13.10 i ty [place] [id number] [facility] 084 Branch 2020-06-26 2020-06-27 Emergency GermaineDwain [facility] 1.2.840.1 [id number] Univers 09:30:00 16:26:00 NeumannTriston bunn [facility] 350.1.13.10 [place]y [place] [id number] [facility] 116 Branch ([facility]) 2020-06-04 2020-06-04 Emergency [id number] 08:48:00 13:30:[address] [facility] 2020-05-22 2020-05-23 Outpatient E SJ COFFEY [facility] [id number] 23:50:00 12:22:[address] [facility] 2020-05-17 2020-05-17 Emergency E [facility]ORIBIO [id number] 15:42:00 20:39:[address] [facility] 2019-09-19 2019-09-20 Emergency E MELODIE, MHSE MHSE [id number] 20:41:00 13:53:[address] [facility] 2019-02-15 2019-02-15 Emergency E MHSE MHSE [id number] 18:56:00 18:56:[address] [facility] 2019-02-12 2019-02-12 Emergency EM NALLELY Valadez [id number] [facility] 09:29:00 11:14:00 Safi [id number] [facility] Results Test Description Test Time Test Comments Results Result Comments Source AG STREP GROUP A (THROAT) 2021-01-03 11:43:00 Test Item Value Reference Range Interpretation Comme nts AG STREP GROUP A (THROAT) NEGATIVE Negative Pe rformed by certified flipping machine operator at (test code = STREPA) [facility] St[facility] is a rapid, instru ment-based, molecular invitro diagnos tic test utilizing isothermal nucl eic acidamplification technology for the qualitative detection ofStr eptococcus pyogenes Basic Metabolic Panel (NA, K, CL, CO2, GLUCOSE, BUN, CREATININE, CA)2020-08-10 09:43:46 Test Item Value Reference Range Interpretation Comments NA (test code = 136 mmol/L 135-145 8516359171) K (test code = 3.8 mmol/L 3.5-5.0 8446336649) CL (test code = 105 mmol/L 98-108 2420765344) CO2 TOTAL (test code 24 mmol/L 23-31 = 3573545215) AGAP (test code = 2-16 9827939911) BUN (test code = 14 mg/dL 7-23 4968730244) GLUCOSE (test code = 97 mg/dL 70-110 1409060450) CREATININE (test code 0.50 mg/dL 0.50-1.04 = 4236430832) CALCIUM (test code = 8.7 mg/dL 8.6-10.6 3971681049) eGFR (test code = mL/min/1.73m2 2067423476) LEYDI (test code = LEYDI) Association of [...] or urine or abnormalities in imaging tests). [facility] [id number] 09:28:27 Test Item Value Reference Range Interpretation Comments WBC (test code = See_Comment H [Automated 9353-2) message] The sy stem which generated this result transmitted reference range : 4.30 - 11.10 10*3/?L. The reference range was not used to interpret this result as normal/abnormal . RBC (test code = See_Comment [Automated 961-8) message] The sy stem which generated this [...] (test code = 50.1 fL 39.0-49.9 H 59479-6) RDW-CV (test code = 15.1 % 12.0-15.5 788-0) PLT (test code = See_Comment [Automated 777-3) message] The sy stem which generated this result transmitted reference range : 166 - 358 10*3/ ?L. The reference r kasi was not used to interpret this result as normal/abnormal . MPV (test code = 10.3 fL 9.5-12.9 25775-3) NRBC/100 WBC (test See_Comment [Automat ed code = 7244334970) message] The system which generated this result transmitted reference range : 0.0 - 10.0 /100 WBCs. The refer ence range was not u sed to interpret th is result as normal/abnormal . NRBC x10^3 (test code <0.01 See_Comment [Auto mated = 0402746084) message] The s ystem which generated this result transmitted reference range : 10*3/?L. The reference range was not used to interpret this result as normal/abnormal . GRAN MAT (NEUT) % 71.7 % (test code = 770-8) IMM GRAN % (test code 0.20 % = 5867278189) LYMPH % (test code = 19.5 % 736-9) MONO % (test code = 7.1 % 5905-5) EOS % (test code = 1.0 % 713-8) BASO % (test code = 0.5 % 706-2) GRAN MAT x10^3(ANC) 8.99 10*3/uL 1.88-7.09 H (test code = 4939172784) IMM GRAN x10^3 (test 0.03 10*3/uL 0.00-0.06 code = 5845283717) LYMPH x10^3 (test code 2.45 10*3/uL 1.32-3.29 = 731-0) MONO x10^3 (test code 0.89 10*3/uL 0.33-0.92 = 742-7) EOS x10^3 (test code = 0.12 10*3/uL 0.03-0.39 711-2) BASO x10^3 (test code 0.06 10*3/uL 0.01-0.07 = 704-7) Lab Interpretation Abnormal (test code = 34761-1) [facility] P[facility] W [id number] 18:30:081. Fluid-filled loops of small bowel and [...] and mesenteric lymph nodes mayrepresent enteritis.2. Mild hepatomegalyUnCarrollton Regional Medical CenterCOVID-19 (ID NOW RAPID TESTING)2020-08-09 18:00:00 Test Item Value Reference Range Interpretation Comments SARS-CoV-2 Rapid ID NOW Not Detected Not Detected (test code = 00533-2) LEYDI (test code = LEYDI) ID NOW COVID-19 Assay is an isothermal nucleic acid amplification test intended for the qualitative detection of nucleic acid from SARS-CoV-2 viral RNA in nasopharyngeal (APERTURE MASK ETCHER) specimens. It is used under Emergency Use [...] indicated. Lab Interpretation Normal (test code = 88528-2) [facility] Pelvic Complete W/ [id number] 17:43:02 No acute pelvic abnormality. Simple appearing [...] 08/09/2020 12:44 PM CDT Patient name: RONNIE BROCK: 1995 25 years EXAMINATION: US PELVIS COMPLETE [...] signed by Primo Remy at 08/09/2020 12:43 PMUnCarrollton Regional Medical CenterHepatic Function Panel (ALB, T.PRO, BILI T, BU/BC, ALT, AST, ALK PHOS)2020-08-09 17:12:34 Test Item Value Reference Range Interpretation Comments TOTAL BILI (test code = 3283936391) 0.1 mg/dL 0.1-1.1 BILI UNCON (test code = 7349123737) 0.0 mg/dL 0.1-1.1 L BILI CONJ (test code = 4161416283) 0.0 mg/dL 0.0-0.3 T PROTEIN (test code = 0778202564) 7.1 g/dL 6.3-8.2 ALBUMIN (test code = 1270415165) 4.5 g/dL 3.5-5.0 ALK PHOS (test code = 2239447028) 52 U/L 34-122 ALTv (test code = 1742-6) 21 U/L 5-35 AST(SGOT) (test code = 8881644691) 21 U/L 13-40 Lab Interpretation (test code = Abnormal 01798-6) [facility] America[facility]ase [id number] 17:12:34 Test Item Value Reference Range Interpretation Comments LIPASE (test code = 5144461499) 45 U/L 0-220 Lab Interpretation (test code = Normal 44603-7) [facility] AmericaAmylase [id number] 17:12:34 Test Item Value Reference Range Interpretation Comments YOHANA (test code = 1648906208) 73 U/L 35-110 Lab Interpretation (test code = Normal 16634-4) [facility] Metabolic Panel (NA, K, CL, CO2, GLUCOSE, BUN, CREATININE, CA)2020-08-09 17:12:33 Test Item Value Reference Range Interpretation Comments NA (test code = 135 mmol/L 135-145 9719809790) K (test code = 4.1 mmol/L 3.5-5.0 9149840596) CL (test code = 104 mmol/L 98-108 5061922756) CO2 TOTAL (test code = 22 mmol/L 23-31 L 7810227347) AGAP (test code = 2-16 2639606598) BUN (test code = 24 mg/dL 7-23 H 4045502252) GLUCOSE (test code = 106 mg/dL 70-110 5112958875) CREATININE (test code = 0.68 mg/dL 0.50-1.04 0827421067) CALCIUM (test code = 10.1 mg/dL 8.6-10.6 5277327052) eGFR (test code = mL/min/1.73m2 0062238998) LEYDI (test code = LEYDI) Association of [...] tests). Lab Interpretation Abnormal (test code = 82301-8) [facility] AmericaPregnancy Test, [id number] 17:09:54 Test Item Value Reference Range Interpretation Comments PREG SERUM (test code Negative = 8290895140) LEYDI (test code = LEYDI) Less than 10 IU/L. ?If low titer or ectopic is suspected, resubmit specimen in 48-72 hours. [facility] AmericaCBC with Vvrrppeyqsqp2996-15-55 17:01:51 Test Item Value Reference Range Interpretation Comments WBC (test code = See_Comment H [Automated 8002-2) message] The system which generated this result transmit ramirez reference range : 4.30 - 11.10 10*3/?L. The reference range was not used to interpret this result as normal/abnormal . RBC (test code = See_Comment [Automated 669-8) message] The system which generated this result [...] RDW-SD (test code = 48.8 fL 39.0-49.9 01190-0) RDW-CV (test code = 15.1 % 12.0-15.5 788-0) PLT (test code = See_Comment H [Automated 967-3) message] The system which generated this result transmit ramirez reference range : 166 - 358 10*3/ ?L. The reference range was not u sed to interpret th is result as normal/abnormal . MPV (test code = 10.4 fL 9.5-12.9 23835-4) NRBC/100 WBC (test See_Comment [Automat ed code = 6091633793) message] The system which generated this result transmit ramirez reference range : 0.0 - 10.0 /100 WBCs. The reference range was not used to interpret this result as normal/abnormal . NRBC x10^3 (test code <0.01 See_Comment [Auto mated = 3401200243) message] The system which generated this result transmit ramirez reference range : 10*3/?L. The reference range was not used to interpret this result as normal/abnormal . GRAN MAT (NEUT) % 75.8 % (test code = 770-8) IMM GRAN % (test code 0.40 % = 7248790311) LYMPH % (test code = 17.0 % 736-9) MONO % (test code = 5.2 % 5905-5) EOS % (test code = 1.1 % 713-8) BASO % (test code = 0.5 % 706-2) GRAN MAT x10^3(ANC) 12.61 10*3/uL 1.88-7.09 H (test code = 7121678157) IMM GRAN x10^3 (test 0.07 10*3/uL 0.00-0.06 H code = 4024725950) LYMPH x10^3 (test code 2.82 10*3/uL 1.32-3.29 = 731-0) MONO x10^3 (test code 0.86 10*3/uL 0.33-0.92 = 742-7) EOS x10^3 (test code = 0.19 10*3/uL 0.03-0.39 711-2) BASO x10^3 (test code 0.08 10*3/uL 0.01-0.07 H = 704-7) Lab Interpretation Abnormal (test code = 97637-7) [facility] OVARY [id number] 07:41:05 Normal pelvic ultrasound. RL: 460 AFC: [id number] Electronically signed by Lainey Goddard MD, PhD at07/31/2020 2:41 AMOrdering physician: RODO NETTLES INDICATION: Pelvic pain COMPARISON: None TECHNIQUE: Grayscale [...] adnexal mass or free fluid is appreciated. [facility], Radiant Results Inft User - 07/31/2020 2:42 AM CDT Ordering physician: RODO HINKLEDICATION: Pelvic painCOMPARISON: NoneTECHNIQUE: Grayscale and Doppler images [...] free fluid is appreciated.IMPRESSIONNormal pelvic ultrasound.RL: 460AFC: [id number] signed by Lainey Goddard MD, PhD at 07/31/2020 2:41 AMSurgery Specialty Hospitals of AmericaUrinalysis 2020-07-31 03:01:21 Test Item Value Reference Range Interpretation Comments APPEARANCE (test code = Cloudy Clear A 2928776438) COLOR (test code = Yellow Yellow 0068634911) PH (test code = 4.8-8.0 8937699359) SP GRAVITY (test code = 1.003-1.030 0127217684) GLU U QUAL (test code = Normal Normal 9527509127) BLOOD (test code = Negative Negative 0899459190) KETONES (test code = 20 mg/dL Negative A 4851812498) PROTEIN (test code = 500 mg/dL Negative A 2887-8) UROBILIN (test code = Normal Normal 8318164330) BILIRUBIN (test code = Negative Negative 0802968567) NITRITE (test code = Negative Negative 5158271440) [place] (test code = Negative Negative 1612801160) RBC/HPF (test code = <1 See_Comment [Autom ated message] 1081761358) The system [employer] generated this result transmit ramirez reference range : 0 - 3 HPF. The refe rence range was not u sed to interpret th is result as normal/abnormal . WBC/HPF (test code = <1 See_Comment [Autom ated message] 4649138655) The system [employer] generated this result transmit ramirez reference range : 0 - 5 HPF. The refe rence range was not u sed to interpret th is result as normal/abnormal . BACTERIA (test code = Few Negative A 3640452323) MUCOUS (test code = Moderate Negative LPF A 4766184424) SQ EPITH (test code = HPF 1887756038) HYAL CAST (test code = See_Comment H [Aut omated message] 2719695826) The system [employer] generated this result transmit ramirez reference range : <=2 LPF. The refere nce range was not u sed to interpret th is result as normal/abnormal . GRAN CASTS (test code = See_Comment H [Au tomated message] 6329296669) The system [employer] generated this result transmit ramirez reference range : <=1 LPF. The refere nce range was not u sed to interpret th is result as normal/abnormal . Lab Interpretation (test Abnormal code = 96508-1) [facility] America[facility] Metabolic [id number] 02:58:36 Test Item Value Reference Range Interpretation Comments NA (test code = 139 mmol/L 135-145 8129020075) K (test code = 3.7 mmol/L 3.5-5.0 4043611255) CL (test code = 108 mmol/L 98-108 0176924369) CO2 TOTAL (test code = 18 mmol/L 23-31 L 3300061567) AGAP (test code = 2-16 1519331592) BUN (test code = 20 mg/dL 7-23 2198244680) GLUCOSE (test code = 150 mg/dL 70-110 H 5832070755) CREATININE (test code = 0.70 mg/dL 0.50-1.04 5557896390) TOTAL BILI (test code = 0.4 mg/dL 0.1-1.9 0983181200) CALCIUM (test code = 10.2 mg/dL 8.6-10.6 7638022911) T PROTEIN (test code = 8.0 g/dL 6.3-8.2 3619162316) ALBUMIN (test code = 5.0 g/dL 3.5-5.0 1618312888) ALK PHOS (test code = 54 U/L 34-122 4866307820) ALTv (test code = 42 U/L 5-35 H 1742-6) AST(SGOT) (test code = 35 U/L 13-40 7095498884) eGFR (test code = mL/min/1.73m2 1649348890) LEYDI (test code = LEYDI) Association of [...] tests). Lab Interpretation Abnormal (test code = 09392-0) [facility] AmericaLipase, [id number] 02:58:36 Test Item Value Reference Range Interpretation Comments LIPASE (test code = 0083038150) 32 U/L 0-220 Lab Interpretation (test code = Normal 22118-1) [facility] AmericaCB with Dnvfvmxteuqs3546-11-77 02:50:55 Test Item Value Reference Range Interpretation [...] RDW-SD (test code = 47.3 fL 39.0-49.9 48901-0) RDW-CV (test code = 14.6 % 12.0-15.5 788-0) PLT (test code = See_Comment H [Automated 777-3) message] The system which generated this result transmit ramirez reference range : 166 - 358 10*3/ ?L. The reference range was not u sed to interpret th is result as normal/abnormal . MPV (test code = 10.5 fL 9.5-12.9 94494-8) NRBC/100 WBC (test See_Comment [Automat ed code = 0778570258) message] The system which generated this result transmit ramirez reference range : 0.0 - 10.0 /100 WBCs. The reference range was not used to interpret this result as normal/abnormal . NRBC x10^3 (test code <0.01 See_Comment [Auto mated = 3352372348) message] The system which generated this result transmit ramirez reference range : 10*3/?L. The reference range was not used to interpret this result as normal/abnormal . GRAN MAT (NEUT) % 81.7 % (test code = 770-8) IMM GRAN % (test code 0.60 % = 2844594798) LYMPH % (test code = 11.9 % 736-9) MONO % (test code = 5.3 % 5905-5) EOS % (test code = 0.1 % 713-8) BASO % (test code = 0.4 % 706-2) GRAN MAT x10^3(ANC) 14.62 10*3/uL 1.88-7.09 H (test code = 6514020309) IMM GRAN x10^3 (test 0.10 10*3/uL 0.00-0.06 H code = 9379117826) LYMPH x10^3 (test code 2.12 10*3/uL 1.32-3.29 = 731-0) MONO x10^3 (test code 0.94 10*3/uL 0.33-0.92 H = 742-7) EOS x10^3 (test code = <0.03 0.03-0.39 L 711-2) BASO x10^3 (test code 0.08 10*3/uL 0.01-0.07 H = 704-7) Lab Interpretation Abnormal (test code = 20365-1) [facility] AmericaPOCT [id number] 02:41:00 Test Item Value Reference Range Interpretation Comments POCT PREG (test code = 1605) negative On board controls acceptable with present C Line (test code = 3574) POCT PREG LOT # (test code = 3575) [id number] POCT PREG TEST DATE (test 2022-01-14 code = 3576) Lab Interpretation (test code = Normal 50693-7) [facility] AmericaCOVID-19 (ID NOW RAPID TESTING)2020-06-26 19:27:50 Test Item Value Reference Range Interpretation Comments SARS-CoV-2 Rapid ID NOW Not Detected Not Detected (test code = 40181-0) LEYDI (test code = LEYDI) ID NOW COVID-19 Assay is an isothermal nucleic acid amplification test intended for the qualitative detection of nucleic acid from SARS-CoV-2 viral RNA in nasopharyngeal (APERTURE MASK ETCHER) specimens. It is used under Emergency Use [...] indicated. Lab Interpretation Normal (test code = 68457-7) [facility] OVARY [id number] 17:56:15PELVIC ULTRASOUND FOR OVARIAN TORSION HISTORY: ?torsion [...] since this patient has hadsymptoms for many years.[facility] AmericaCT ABDOMEN PELVIS W [id number] 15:50:561. No acute abnormality of the abdomen [...] Diastases of the rectus sheath is noted. [facility], Radiant Results Inft User - 06/26/2020 10:52 [...] No acute abnormality of the abdomen or pelvisUnCarrollton Regional Medical CenterUrinalysis2021-05-12 15:36:50 Test Item Value Reference Range Interpretation Comments APPEARANCE (test code = Hazy Clear A 7662913120) COLOR (test code = Lena Yellow A 8632893999) PH (test code = 4.8-8.0 1539819500) SP GRAVITY (test code = 1.003-1.030 2333305772) GLU U QUAL (test code = Normal Normal 0955981405) BLOOD (test code = Negative Negative 2652979437) KETONES (test code = 20 mg/dL Negative A 2048346132) PROTEIN (test code = 100 mg/dL Negative A 2887-8) UROBILIN (test code = Normal Normal 2098388919) BILIRUBIN (test code = Negative Negative 8756775401) NITRITE (test code = Negative Negative 5698145469) [place] (test code = Negative Negative 1384276611) RBC/HPF (test code = See_Comment [Autom ated message] 4831583598) The system [employer] generated this result transmit ramirez reference range : 0 - 3 HPF. The refe rence range was not u sed to interpret th is result as normal/abnormal . WBC/HPF (test code = See_Comment [Autom ated message] 6623053421) The system [employer] generated this result transmit ramirez reference range : 0 - 5 HPF. The refe rence range was not u sed to interpret th is result as normal/abnormal . BACTERIA (test code = Few Negative A 3788609308) MUCOUS (test code = Marked Negative LPF A 0429794121) SQ EPITH (test code = See_Comment H [Auto mated message] 4778197266) The system [employer] generated this result transmit ramirez reference range : <=2 HPF. The refere nce range was not u sed to interpret th is result as normal/abnormal . Lab Interpretation (test Abnormal code = 98682-8) [facility] AmericaURINE DRUG (IMMUNOASSAY) - COMPREHENSIVE DRUG [id number] 15:24:46 Test Item Value Reference Range Interpretation Comments AMPHET (test code = Negative Negative 9394067776) JAM U (test code = Negative Negative 5425687489) BENZO U (test code = Negative Negative 8378130006) Cocaine Metabolite (test Negative Negative code = 5281836735) METHADONE (test code = Negative Negative 7869684295) OPIATES (test code = Presumptive Positive Negative A 1523149966) PCP (test code = Negative Negative 1757399727) THC (test code = Negative Negative 3269043684) LEYDI (test code = LEYDI) Urine Drug [...] testing). Lab Interpretation (test Abnormal code = 43478-6) [facility] AmericaEthanol Uqciq9940-06-43 14:59:12 Test Item Value Reference Range Interpretation Comments ALCOHOL (test code = <10 mg/dL 5401662489) LEYDI (test code = Toxic Greater than or LEYDI) equal to 80 mg/dL. NOTE: Whole blood values are approximately 10% to 15% lower than serum and plasma. [facility]als of AmericaBasi Metabolic Panel (NA, K, CL, CO2, GLUCOSE, BUN, CREATININE, CA)2020-06-26 14:59:01 Test Item Value Reference Range Interpretation Comments NA (test code = 139 mmol/L 135-145 7221963675) K (test code = 4.2 mmol/L 3.5-5.0 4733049201) CL (test code = 107 mmol/L 98-108 3478905326) CO2 TOTAL (test code = 19 mmol/L 23-31 L 1859309978) AGAP (test code = 2-16 4033439772) BUN (test code = 14 mg/dL 7-23 5192094110) GLUCOSE (test code = 147 mg/dL 70-110 H 4275587053) CREATININE (test code = 0.56 mg/dL 0.50-1.04 0323174644) CALCIUM (test code = 10.5 mg/dL 8.6-10.6 0080354043) eGFR (test code = mL/min/1.73m2 1792107667) LEYDI (test code = LEYDI) Association of [...] tests). Lab Interpretation Abnormal (test code = 23101-7) [facility] AmericaHepatic Function Panel (ALB, T.PRO, BILI T, BU/BC, ALT, AST, ALK PHOS)2020-06-26 14:59:01 Test Item Value Reference Range Interpretation Comments TOTAL BILI (test code = 8545684096) 0.5 mg/dL 0.1-1.1 BILI UNCON (test code = 1464908407) 0.1 mg/dL 0.1-1.1 BILI CONJ (test code = 4974834878) 0.0 mg/dL 0.0-0.3 T PROTEIN (test code = 0421053155) 7.9 g/dL 6.3-8.2 ALBUMIN (test code = 0848299325) 5.0 g/dL 3.5-5.0 ALK PHOS (test code = 6383867512) 64 U/L 34-122 ALTv (test code = 1742-6) 19 U/L 5-35 AST(SGOT) (test code = 0055665130) 23 U/L 13-40 Lab Interpretation (test code = Normal 16203-4) [facility] AmericaLipase Cbslk6430-56-85 14:59:01 Test Item Value Reference Range Interpretation Comments LIPASE (test code = 2109157863) 115 U/L 0-220 Lab Interpretation (test code = Normal 52129-2) [facility] of AmericaPregnancy Test, Umhih6579-03-63 14:53:57 Test Item Value Reference Range Interpretation Comments PREG SERUM (test code Negative = 4147503769) LEDYI (test code = LEYDI) Less than 10 IU/L. ?If low titer or ectopic is suspected, resubmit specimen in 48-72 hours. [facility] Hospitals of AmericaCB with Iznytvwuxmyk6463-47-51 14:48:21 Test Item Value Reference Range Interpretation Comments WBC (test code = See_Comment H [Automated 1528-2) message] The system which generated this result transmit ramirez reference range : 4.30 - 11.10 10*3/?L. The reference range was not used to interpret this result as normal/abnormal . RBC (test code = See_Comment [Automated 469-8) message] The system which generated this result [...] RDW-SD (test code = 49.4 fL 39.0-49.9 38144-5) RDW-CV (test code = 15.1 % 12.0-15.5 788-0) PLT (test code = See_Comment H [Automated 597-3) message] The system which generated this result transmit ramirez reference range : 166 - 358 10*3/ ?L. The reference range was not u sed to interpret th is result as normal/abnormal . MPV (test code = 10.5 fL 9.5-12.9 77873-8) NRBC/100 WBC (test See_Comment [Automat ed code = 0745221902) message] The system which generated this result transmit ramirez reference range : 0.0 - 10.0 /100 WBCs. The reference range was not used to interpret this result as normal/abnormal . NRBC x10^3 (test code <0.01 See_Comment [Auto mated = 9112823787) message] The system which generated this result transmit ramirez reference range : 10*3/?L. The reference range was not used to interpret this result as normal/abnormal . GRAN MAT (NEUT) % 81.9 % (test code = 770-8) IMM GRAN % (test code 0.40 % = 1436034946) LYMPH % (test code = 13.2 % 736-9) MONO % (test code = 3.5 % 5905-5) EOS % (test code = 0.5 % 713-8) BASO % (test code = 0.5 % 706-2) GRAN MAT x10^3(ANC) 13.49 10*3/uL 1.88-7.09 H (test code = 0709975234) IMM GRAN x10^3 (test 0.06 10*3/uL 0.00-0.06 code = 7207643408) LYMPH x10^3 (test code 2.17 10*3/uL 1.32-3.29 = 731-0) MONO x10^3 (test code 0.58 10*3/uL 0.33-0.92 = 742-7) EOS x10^3 (test code = 0.08 10*3/uL 0.03-0.39 711-2) BASO x10^3 (test code 0.08 10*3/uL 0.01-0.07 H = 704-7) Lab Interpretation Abnormal (test code = 82544-0) [facility] [id number] 14:41:00 Test Item Value Reference Range Interpretation Comments On board controls acceptable with Negative C Line (test code = 3574) POCT PREG LOT # (test code = 3575) [id number] POCT PREG TEST DATE (test 10/15/2020 code = 3576) Lab Interpretation (test code = Normal 78083-7) [facility]- XR ANKLE 3 + V [id number] 00:12:00 [facility] 1995 Sex: F FAX: Tomas Grant MD [phone] [place]: St: REG Name: [facility] Shabnam Price : 1995 Age/S: 24/F [address] [place] [address] Unit #: [id number] Loc: [place] [address] Phys: Tomas Reagan MD Acct: [id number] Dis Date: Status: REG ER PHONE #: [phone] Exam Date: 06/19/2020 2358 FAX #: [phone] Reason: ANKLE PAIN EXAMS: CPT CODE: [id number] XR ANKLE 3 + [place] [address] Left tibia/fibula, 2 views and left ankle, [...] MD Technologist: RT Lisy(R) Trnscrd Date/Time/By: 06/20/2020 (11) : By: Brain Orig Print D/T: S: 06/20/2020 (001) PAGE 1 Signed Report- XR TIBIA/FIBULA 2 V [id number] 00:12:00 [facility] 1995 Sex: F FAX: Tomas Grant MD [phone] [place]: St: REG Name: RONNIE HERRERA [facility] [place] : 1995 Age/S: 24/F [address] [place] [address] Unit #: [id number] Loc: [place] [address] Phys: Tomas Reagan MD Acct: [id number] Dis Date: Status: REG ER PHONE #: [phone] Exam Date: 06/19/2020 2358 FAX #: [phone] Reason: LEG PAIN EXAMS: CPT CODE: [id number] XR TIBIA/FIBULA 2 VLT 29465 Left tibia/fibula, 2 views and left ankle, [...] MD Technologist: RT Lisy(R) Trnscrd Date/Time/By: 06/20/2020 (11) : By: Brain Orig Print D/T: S: 06/20/2020 (0015) PAGE 1 Signed Report- CT ABD PELVIS W/DOEN0151-89-41 16:43:00 [facility]IE [facility]A : 1995 Sex: F Name: RONNIE HERRERA : 1995 Age/S: 24 / F [address] [place] [address] Unit #: [id number] Loc: [place] [address] Phys: Rachell Drake MD Acct: [id number] Dis Date: Status: REG ER PHONE #: [phone] Exam Date: 04/15/2020 1618 FAX #: [phone] Reason: ACUTE ON CHRONIC ABD PAIN EXAMS: CPT CODE: [id number] CT ABD PELVIS W/CONT 94624 CT ABDOMEN AND PELVIS WITH CONTRAST. INDICATION: [...] HERRERA : 1995 Age/S: 24 / F [address] [place] [address] Unit #: [id number] Loc: [place] [address] Phys: Rachell Drake MD Acct: [id number] Dis Date: Status: REG ER PHONE #: [phone] Exam Date: 0 04/15/2020 1618 FAX #: [phone] Reason: ACUTE ON CHRONIC ABD PAIN EXAMS: CPT CODE: [id number] CTABD PELVIS W/CONT 65910 <Continued> at 1643 Reported and signed by: Roney Jean-Baptiste M.D. CC: Rachell Drake MD Technologist:Olivia Mendiola, RT(R) CTDI: DLP: Trnscb Date/Time: 04/15/2020 (1642) t.[email or web address] Orig Print D/T: S: 04/15/2020 (1645) PAGE 2 Signed ReportUA RFLX MICR CULT IF [id number] 16:32:00 Test Item Value Reference Range Interpretation [...] Description: STRAIGHT CATH - XR ABD ACUTE W/HOBOL9474-15-18 14:03:00 [facility] SHABNAM TONTOGANYName: RONNIE HERRERA : 1995 Sex: F FAX: Rachell Echeverria MD [phone] [place]: St: REG Name: RONNIE HERRERATXBrisa Price : 1995 Age/S: 24/F [address] [place] [address] Unit #: [id number] Loc: [place] [address] Phys: Rachell Drake MD Acct: [id number] Dis Date: Status: REG ER PHONE #: [phone] Exam Date: 04/15/2020 1345 FAX #: [phone] Reason: acute abd pain EXAMS: CPT CODE: [id number] XR ABD ACUTE W/CHEST 40610 PROCEDURE: ABDOMINAL SERIES WITH SINGLE VIEW CHEST [...] abdomen with paucity of bowel gas. SL: [id number] t 140 Reported and signed by: All Reyes M.D. CC: Rachell Drake MD Technologist: Yary Álvarez, RT(R); Mila StewardRT(R) Trnscrd Date/Time/By: 04/15/2020 (1402) : By: Jamie Orig Print D/T: S: 04/15/2020 (1406) PAGE 1 Signed ReportBASIC METABOLIC [id number] 13:24:00 Test Item Value Reference Range Interpretation [...] 9.8 mg/dL 8.0-10.5 N CA) HEPATIC FUNCTION [id number] 13:24:00 Test Item Value Reference Range Interpretation [...] 66 IUnit/L 20-125 N code = ALKP) [id number] 13:24:00 Test Item Value Reference Range Interpretation Comments LIPASE (test code = LIP) 26 U/L 13-57 N [id number] 13:24:00 Test Item Value Reference Range Interpretation Comments MAGNESIUM (test code = MAG) 1.62 mg/dL 1.80-2.40 L HCG SERUM [id number] 13:24:00 Test Item Value Reference Range Interpretation Comments HCG SERUM QUAL (test code = SERUM NEGATIVE NEGATIVE HCGQL) BASIC METABOLIC [id number] 13:17:00 Test Item Value Reference Range Interpretation [...] code = CA) mg/dL 8.0-10.5 HEPATIC FUNCTION [id number] 13:17:00 Test Item Value Reference Range Interpretation Comments TOTAL PROTEIN (test code = PROT) g/dL 6.4-8.2 ALBUMIN (test code = ALB) g/dL 3.4-5.0 BILIRUBIN TOTAL (test code = BILT) mg/dL 0.0-1.0 BILIRUBIN DIRECT (test code = BILD) MG/DL 0.0-0.30 SGOT/AST (test code = AST) IUnit/L 15-37 SGPT/ALT (test code = ALT) IUnit/L 30-65 ALKALINE PHOSPHATASE TOTAL (test IUnit/L 20-125 code = ALKP) [id number] 13:17:00 Test Item Value Reference Range Interpretation Comments LIPASE (test code = LIP) U/L 13-57 [id number] 13:17:00 Test Item Value Reference Range Interpretation Comments MAGNESIUM (test code = MAG) mg/dL 1.80-2.40 HCG SERUM [id number] 13:17:00 Test Item Value Reference Range Interpretation Comments HCG SERUM QUAL (test code = SERUM NEGATIVE NEGATIVE HCGQL) PROTHROMBIN [id number] 13:08:00 Test Item Value Reference Range Interpretation [...] o prevent recurre nt infarct). THROMBOPLASTIN TIME [id number] 13:08:00 Test Item Value Reference Range Interpretation Comments THROMBOPLASTIN TIME 26.2 Seconds 25.0-39.5 N Ther apeutic PARTIAL (test code = Range: 50.4 - 88.3 PTT) Seconds Effective 05/31/2018 PROTHROMBIN [id number] 13:05:00 Test Item Value Reference Range Interpretation [...] o prevent recurre nt infarct). THROMBOPLASTIN TIME [id number] 13:05:00 Test Item Value Reference Range Interpretation Comments THROMBOPLASTIN TIME PARTIAL (test Seconds 25.0-39.5 code = PTT) CBC W/AUTO [id number] 12:59:00 Test Item Value Reference Range Interpretation [...] (test NO code = MDIFF) CBC W/AUTO [id number] 12:55:00 Test Item Value Reference Range Interpretation [...] 1.0-3.8 MANUAL DIFF REQUIRED (test code = IFF) - DUP AB/PEL/SC/[id number] 14:48:00 [facility] : 1995 Sex: F Name: RONNIE HERRERA [facility] : 1995 Age/S: 24 / F [address] [place] [address] Unit #: [id number] Loc: [place] [address] Phys: Rachell Drake MD Acct: [id number] Dis Date: Status: REG ER PHONE #: [phone] Exam Date: 03/18/2020 [facility]4 FAX #: [phone] Reason: see US Pelvic Non OB Complete EXAMS: CPT CODE: [id number] DUP AB/PEL/SC/LTD 97268 EXAM: US PELVIS TRANSABDOMINAL EXAM: US PELVIS [...] fluid: None. IMPRESSION: No acute findings. SL: [id number] PAGE 1 Signed Report (CONTINUED) Name: [facility] 1995 Age/S: 24 / F [address] [place] [address] Unit #: [id number] Loc: [place] [address] Phys: Rachell Drake MD Acct: [id number] Dis Date: Status: REG ER PHONE #: [phone] Exam Date: 03/18/2020 1434 FAX #: [phone] Reason: see US Pelvic Non OB Complete EXAMS: CPT CODE: [id number] DUP AB/PEL/SC/LTD 32205 <Continued> at 1448 Reported and signed by: Yi Isabel D.O. CC: Rachell Drake MD Technologist: Ashley Magana RDMS(Belkis)(BR) Trnscb Date/Time: 03/18/2020 (1448) [id number] Orig Print D/T: S: 03/18/2020 (1451) Probe: PAGE 2 Signed Report- US TRANSVAGINAL NON [id number] 14:48:00 [facility] SHABNAM PRICEName: RONNIE HERRERA : 1995 Sex: F Name: RONNIE HERRERA HCABrisa Price : 1995 Age/S: 24 / F [address] [place] [address] Unit #: [id number] Loc: [place] [address] Phys: Rachell Drake MD Acct: [id number] Dis Date: Status: REG ER PHONE #: [phone] Exam Date: 03/18/2020 1434 FAX #: [phone] Reason: see US Pelvic Non OB Complete EXAMS: CPT CODE: [id number] [place] [address] EXAM: US PELVIS TRANSABDOMINAL EXAM: US PELVIS [...] fluid: None. IMPRESSION: No acute findings. SL: [id number] PAGE 1 Signed Report (CONTINUED) Name: RONNIE HERRERA : 1995 Age/S: 24 / F [address] [facility] Unit #: [id number] Loc: [place] [address] Phys: Rachell Drake MD Acct: [id number] Dis Date: Status: REG ER PHONE #: [phone] Exam Date: 03/18/2020 1434 FAX #: [phone] Reason: see US Pelvic Non OB Complete EXAMS: CPT CODE: [id number] [place] [address] <Continued> at 1448 Reported and signed by: Yi Isabel D.O. CC: Rachell Drake MD Technologist: Ashley Magana RDMS(Belkis)() Trnscb Date/Time: 03/18/2020 (1448) JovanaR.MP37 Orig Print D/T: S: 03/18/2020 (1898) Probe: [id number] PAGE 2 Signed Report- US PELVIS [id number] 14:48:00 [facility] : 1995 Sex: F Name: RONNIE HERRERA [facility] : 1995 Age/S: 24 / F [address] [place] [address] Unit #: [id number] Loc: [place] [address] Phys: Rachell Drake MD Acct: [id number] Dis Date: Status: REG ER PHONE #: [phone] Exam Date: 03/18/2020 1434 FAX #: [phone] Reason: acute pelvic pain EXAMS: CPT CODE: [id number] US PELVIS COMPLETE 89405 EXAM: US PELVIS TRANSABDOMINAL EXAM: US PELVIS [...] fluid: None. IMPRESSION: No acute findings. SL: [id number] PAGE 1 Signed Report (CONTINUED) Name: RONNIE HERRERA [facility] : 1995 Age/S: 24 / F [address] [place] [address] Unit #: [id number] Loc: [place] [address] Phys: Rachell Drake MD Acct: [id number] Dis Date: Status: REG ER PHONE #: [phone] Exam Date: 03/18/2020 [facility] FAX #: [phone] Reason: acute pelvic pain EXAMS: CPT CODE: [id number] US PELVIS COMPLETE 16990 <Continued> at 1448 Reported and signed by: Yi Isabel D.O. CC: Rachell Drake MD Technologist: Ashley Magana RDMS(Belkis)(BR) Trnscb Date/Time: 03/18/2020 (1448) [email or web address].[email or web address].MP37 Orig Print D/T: S: 03/18/2020 (6495) Probe: PAGE 2 Signed Report- US ABDOMEN [id number] 14:43:00 [facility] : 1995 Sex: F Name: RONNIE HERRERA : 1995 Age/S: 24 / F [address] [place], [place] [address] Unit #: [id number] Loc: [place] [address] Phys: Rachell Drake MD Acct: [id number] Dis Date: Status: REG ER PHONE #: [phone] Exam Date: 03/18/2020 1434 FAX #: [phone] Reason: acute abd pain EXAMS: CPT CODE: [id number] US ABDOMEN LTD 78474 EXAM: US ABDOMEN LIMITED DATE: 03/18/2020 1:37 [...] HERRERA : 1995 Age/S: 24 / F [address] [place] [address] Unit #: [id number] Loc: [place] [address] Phys: Rachell Kasper MD Acct: [id number] Dis Date: Status: REG ER PHONE #: [phone] Exam Date: 03/18/2020 1434 FAX #: [phone] Reason: acute abd pain EXAMS: CPT CODE: [id number] US ABDOMEN LTD 48349 <Continued> SL: [id number] at 1443 Reported and signed by: Yi Isabel D.O. CC: Rachell Drake MD Technologist: Ashley Magana RDMS(Belkis)(BR) Trnscb Date/Time: 03/18/2020 (1443) [email or web address].MP37 Orig Print D/T: S: 03/18/2020 (8426) Probe: PAGE 2 Signed ReportBASIC METABOLIC [id number] 11:42:00 Test Item Value Reference Range Interpretation [...] 9.6 mg/dL 8.0-10.5 N CA) HEPATIC FUNCTION [id number] 11:42:00 Test Item Value Reference Range Interpretation [...] 63 IUnit/L 20-125 N code = ALKP) [id number] 11:42:00 Test Item Value Reference Range Interpretation Comments LIPASE (test code = LIP) 25 U/L 13-57 N HCG SERUM [id number] 11:42:00 Test Item Value Reference Range Interpretation Comments HCG SERUM QUAL (test code = SERUM NEGATIVE NEGATIVE HCGQL) - CT ABD PELVIS W/[id number] 11:38:00 [facility] : 1995 Sex: F Name: RONNIE HERRERA [facility] : 1995 Age/S: 24 / F [address] [place] [address] Unit #: [id number] Loc: [place] [address] Phys: Rachell Drake MD Acct: [id number] Dis Date: Status: REG ER PHONE #: [phone] Exam Date: 03/18/2020 1123 FAX #: [phone] Reason: ACUTE ABD PAIN EXAMS: CPT CODE: [id number] CT ABD PELVIS W/CONT 69739 Clinical Indication: Acute abdominal pain. Comparison: 01/03/2019. [...] 2. Bilateral ovarian follicles or cysts. SL: [id number] Electronically Signed by Khoa Khanna on 03/18 at 1138 Reported and signed by: Jj Khanna M.D. PAGE 1 Signed Report (CONTINUED) Name: RONNIE HERRERA [facility] : 1995 Age/S: 24 / F [address] [facility] Unit #: [id number] Loc: [place] [address] Phys: Rachell Drake MD Acct: [id number] Dis Date: Status: REG ER PHONE #: [phone] Exam Date: 03/18/2020 1123 FAX #: [phone] Reason: ACUTE ABD PAIN EXAMS: CPT CODE: [id number] CT ABD PELVIS W/CONT 52269 <Continued> CC: Rachell Drake MD Technologist:RT Patricia(R)(CT) CTDI: DLP: Trnscb Date/Time: 03/18/2020 (1138) t.SDR.KM28 Orig Print D/T: S: 03/18/2020 (1141) PAGE 2 Signed ReportBASIC METABOLIC [id number] 11:34:00 Test Item Value Reference Range Interpretation [...] code = CA) mg/dL 8.0-10.5 HEPATIC FUNCTION [id number] 11:34:00 Test Item Value Reference Range Interpretation Comments TOTAL PROTEIN (test code = PROT) g/dL 6.4-8.2 ALBUMIN (test code = ALB) g/dL 3.4-5.0 BILIRUBIN TOTAL (test code = BILT) mg/dL 0.0-1.0 BILIRUBIN DIRECT (test code = BILD) MG/DL 0.0-0.30 SGOT/AST (test code = AST) IUnit/L 15-37 SGPT/ALT (test code = ALT) IUnit/L 30-65 ALKALINE PHOSPHATASE TOTAL (test IUnit/L 20-125 code = ALKP) [id number] 11:34:00 Test Item Value Reference Range Interpretation Comments LIPASE (test code = LIP) U/L 13-57 HCG SERUM [id number] 11:34:00 Test Item Value Reference Range Interpretation Comments HCG SERUM QUAL (test code = SERUM NEGATIVE NEGATIVE HCGQL) UA RFLX MICR CULT IF [id number] 11:18:00 Test Item Value Reference Range Interpretation [...] for culture: Dysuria/FrequencySpecimen Description: STRAIGHT CATH PROTHROMBIN [id number] 11:17:00 Test Item Value Reference Range Interpretation [...] o prevent recurre nt infarct). THROMBOPLASTIN TIME [id number] 11:17:00 Test Item Value Reference Range Interpretation Comments THROMBOPLASTIN TIME 28.4 Seconds 25.0-39.5 N Ther apeutic PARTIAL (test code = Range: 50.4 - 88.3 PTT) Seconds Effective 05/31/2018 CBC W/AUTO [id number] 11:06:00 Test Item Value Reference Range Interpretation [...] (test NO code = MDIFF) COMPREHENSIVE METABOLIC [id number] 11:08:00 Test Item Value Reference Range Interpretation [...] 20-125 N TOTAL (test code = ALKP) [id number] 11:08:00 Test Item Value Reference Range Interpretation Comments LIPASE (test code = LIP) 58 IUnit/L 73-393 L COMPREHENSIVE METABOLIC [id number] 11:00:00 Test Item Value Reference Range Interpretation [...] TOTAL (test IUnit/L 20-125 code = ALKP) [id number] 11:00:00 Test Item Value Reference Range Interpretation Comments LIPASE (test code = LIP) 58 IUnit/L 73-393 L CBC W/AUTO [id number] 10:50:00 Test Item Value Reference Range Interpretation [...] REQUIRED (test NO code = MDIFF) URINALYSIS [id number] 10:32:00 Test Item Value Reference Range Interpretation [...] 0-5 /HPF NONE SEEN SQU) UR HCG [id number] 10:30:00 Test Item Value Reference Range Interpretation [...] if any concentrations <2 ng/mL are obtai sourav. - DUP AB/PEL/SC/[id number] 13:54:00 Name: RONNIE HERRERA [facility] : 1995 Age/S: 23 / F [address] [place] [address] Unit #: [id number] Loc: [place] Phys: Gume Courtney MD Acct: [id number] Dis Date: Status: REG ER PHONE #: [phone] Exam Date: 01/03/2019 1346 FAX #: [phone] Reason: see US Pelvic Non OB Complete EXAMS: CPTCODE: [id number] DUP AB/PEL/SC/LTD 24765 EXAM: US PELVIS TRANSABDOMINAL EXAM: US PELVIS [...] 1 Signed Report (CONTINUED) Name: RONNIE HERRERA [facility] : 1995 Age/S: 23 / F [address] [place] [address] Unit #: [id number] Loc: [place] [address] Phys: Gume Courtney MD Acct: [id number] Dis Date: Status: REG ER PHONE #: [phone] Exam Date: 01/03/2019 1346 FAX #: [phone] Reason: see US Pelvic Non OB Complete EXAMS: CPT CODE: [id number] DUP AB/PEL/SC/LTD 08482 <Continued> SL: [id number] at 1354 Reported and signed by: Yi Isabel D.O. CC: Gume Courtney MD; Carline Quiñones MD Technologist: Zoey Bustillos RDMS() Trngab Date/Time: 01/03/2019 (7816) [email or web address] Orig Print D/T: S: 01/03/2019 (8693) Probe: PAGE 2 Signed Report- US TRANSVAGINAL NON [id number] 13:54:00 Name: RONNIE HERRERA [facility] [place] : 1995 Age/S: 23 / F [address] [place] [address] Blvd Unit #: [id number] Loc: Donn [id number] Phys: Gume Courtney MD Acct: [id number] Dis Date: Status: REG ER PHONE #: [phone] Exam Date: 01/03/2019 1346 FAX #: [phone] Reason: see US Pelvic Non OB Complete EXAMS: CPTCODE: [id number] [place] [address] EXAM: US PELVIS TRANSABDOMINAL EXAM: US PELVIS [...] HERRERA : 1995 Age/S: 23 / F [address] [place] [address] Unit #: [id number] Loc: [facility] [address] Phys: Gume Courtney MD Acct: [id number] Dis Date: Status: REG ER PHONE #: [phone] Exam Date: 01/03/2019 1346 FAX #: [phone] Reason: see US Pelvic Non OB Complete EXAMS: CPT CODE: [id number] [place] [address] <Continued> SL: [id number] at 1354 Reported and signed by: Yi Isabel D.O. CC: Gume Courtney MD; Carline Quiñones MD Technologist: Zoey Bustillos RDMS() Trngab Date/Time: 01/03/2019 (3033) [email or web address] Orig Print D/T: S: 01/03/2019 (1359) Probe: [id number] PAGE 2 Signed Report- US PELVIS [id number] 13:54:00 Name: RONNIE HERRERA : 1995 Age/S: 23 / F [address] [place] [address] Unit #: [id number] Loc: [facility] [id number] Phys: Gume Courtney MD Acct: [id number] Dis Date: Status: REG ER PHONE #: [phone] Exam Date: 01/03/2019 1346 FAX #: [phone] Reason: Pelvic Pain EXAMS: CPTCODE: [id number] US PELVIS COMPLETE 26624 EXAM: US PELVIS TRANSABDOMINAL EXAM: US PELVIS [...] 1 Signed Report (CONTINUED) Name: RONNIE HERRERA [facility] : 1995 Age/S: 23 / F [address] [place] [address] Blvd Unit #: [id number] Loc: [place] [address] Phys: Gume Courtney MD Acct: [id number] Dis Date: Status: REG ER PHONE #: [phone] Exam Date: 01/03/2019 1346 FAX #: [phone] Reason: Pelvic Pain EXAMS: CPT CODE: [id number] US PELVIS COMPLETE 77342 <Continued> SL: [id number] at 3462 Reported and signed by: Yi Isabel D.O. 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 [facility] - CT ABD PELVIS [id number] 11:11:00 [facility] 1995 Age/S: 23 / F [address] [place] [address] Blvd Unit #: [id number] Loc: [facility] [id number] Phys: Gume Courtney MD Acct: [id number] Dis Date: Status: REG ER PHONE #: [phone] Exam Date: 01/03/2019 1046 FAX #: [phone] Reason: diffuseabd pain, moves to back and left flank EXAMS: CPTCODE: [id number] CT ABD PELVIS W/CONT 51434 STUDY: - CT ABD PELVIS W/CONT 01/03/2019 9:31 AM Ordering Physician: Gume Courtney MD Patient Name: RONNIE HERRERA MR: [id number] : 1995; Age: 23 years y/o Female [...] HERRERA : 1995 Age/S: 23 / F [address] [place], [place] [address]vd Unit #: [id number] Loc: [place] [address] Phys: Gume Courtney MD Acct: [id number] Dis Date: Status: REG ER PHONE #: [phone] Exam Date: 01/03/2019 1046 FAX #: [phone] Reason: diffuse abd pain, moves to back and left flank EXAMS: CPT CODE: [id number] CT ABD PELVIS W/CONT 55735 <Continued> ABDOMINAL ORGANS: Liver: Normal size and [...] suggesting colitis. Otherwise, no abnormality identified. SL: [id number] PAGE 2 Signed Report (CONTINUED) Name: RONNIE HERRERA : 1995 Age/S: 23 / F [address] [place] [address] BlvdUnit #: [id number] Loc: [place] [address] Phys: Gume Courtney MD Acct: [id number] Dis Date: Status:REG ER PHONE #: [phone] Exam Date: 01/03/2019 1046 FAX #: [phone] Reason: diffuse abd pain, moves to back and left flank EXAMS: CPT CODE: [id number] CT ABD PELVIS W/CONT 21145 <Continued> at 1111 Reported and signed by: David Dee M.D. CC: Gume Courtney MD; Carline Quiñones MD Technologist:John Briseno, RT(R)(CT); Harish CTDI: DLP: Trnscb Date/Time: 01/03/2019 (1111) [email or web address] Orig Print D/T: S: 01/03/2019 (3256) PAGE 3 Signed ReportCOMPREHENSIVE METABOLIC [id number] 11:00:00 Test Item Value Reference Range Interpretation [...] 20-125 N TOTAL (test code = ALKP) [id number] 11:00:00 Test Item Value Reference Range Interpretation Comments LIPASE (test code = LIP) 290 IUnit/L 73-393 N HCG SERUM [id number] 11:00:00 Test Item Value Reference Range Interpretation Comments HCG SERUM QUAL (test code = SERUM NEGATIVE NEGATIVE HCGQL) COMPREHENSIVE METABOLIC [id number] 10:54:00 Test Item Value Reference Range Interpretation [...] TOTAL (test IUnit/L 20-125 code = ALKP) [id number] 10:54:00 Test Item Value Reference Range Interpretation Comments LIPASE (test code = LIP) 290 IUnit/L 73-393 N HCG SERUM [id number] 10:54:00 Test Item Value Reference Range Interpretation Comments HCG SERUM QUAL (test code = SERUM NEGATIVE NEGATIVE HCGQL) COMPREHENSIVE METABOLIC [id number] 10:51:00 Test Item Value Reference Range Interpretation [...] TOTAL (test IUnit/L 20-125 code = ALKP) [id number] 10:51:00 Test Item Value Reference Range Interpretation Comments LIPASE (test code = LIP) IUnit/L 73-393 HCG SERUM [id number] 10:51:00 Test Item Value Reference Range Interpretation Comments HCG SERUM QUAL (test code = SERUM NEGATIVE NEGATIVE HCGQL) UA RFLX MICR CULT IF [id number] 10:49:00 Test Item Value Reference Range Interpretation [...] Dysuria/Frequency Flank PainSpecimen Description: CLEAN CATCHCBC W/AUTO [id number] 10:49:00 Test Item Value Reference Range Interpretation [...]
--- NOTE | 2021-03-07 22:15 | EDPHYS ---
Physician Documentation [facility] Name: Jyoti Zelaya Age: 25 yrs Sex: Female : 1995 Arrival Date: 03/07/2021 Time: 19:27 Bed 11 Private MD: IKE Physician Matt Daly HPI: 03/07 22:09 This 25 yrs old Female presents to ER via Ambulatory with complaints of Toothache. cp 22:09 The patient presents with pain. The problem is located in the right lower back molar. cp Duration: The symptoms are continuous, and are steadily getting worse. Associated signs and symptoms: Pertinent negatives: anorexia, fever, inability to eat. Patient reports she started taking Amoxicillin yesterday. Historical: - Allergies: 20:05 No Known Allergies; as6 - Home Meds: 20:05 None [Active]; as6 - PMHx: 20:05 cysts on ovaries- right side; gallstone; ulcerative colities; as6 - PSHx: 20:05 section; as6 - Immunization history:: Client reports having NOT received the Covid vaccine. - Social history:: Smoking status: Patient reports the use of cigarette tobacco products, smokes one-half pack cigarettes per day. ROS: 22:10 Eyes: Negative for injury, pain, redness, and discharge. cp 22:10 Constitutional: Negative for fever, poor PO intake. 22:10 ENT: Positive for dental pain, Negative for drainage from ear(s), ear pain, sore throat, difficulty swallowing, difficulty handling secretions. 22:10 Neck: Negative for pain with movement, pain at rest, stiffness. 22:10 Respiratory: Negative for cough, shortness of breath, wheezing. 22:10 Neuro: Negative for altered mental status, headache, weakness. 22:10 All other systems are negative. Exam: 22:11 Head/Face: Normocephalic, atraumatic. cp 22:11 Constitutional: The patient appears in no acute distress, alert, awake, non-toxic, well developed, well nourished. 22:11 Eyes: Periorbital structures: appear normal, Conjunctiva: normal, no exudate, no injection, Sclera: no appreciated abnormality, Lids and lashes: appear normal, bilaterally. 22:11 ENT: External ear(s): are unremarkable, Nose: is normal, Mouth: Lips: moist, Oral mucosa: pink and intact, moist, Posterior pharynx: Airway: no evidence of obstruction, patent, Tonsils: are normal in appearance, swelling, is not appreciated, erythema, is not appreciated, exudate, is not appreciated, Dental exam: abscess, is not appreciated, fractured teeth are noted, specifically the lower right third molar (#32), gum swelling, not appreciated, pain, that is moderate, specifically in the lower right third molar (#32), Voice: is normal. 22:11 Neck: ROM/movement: is normal, is supple, without pain, no range of motions limitations, no nuchal rigidity. 22:11 Cardiovascular: Rate: normal. 22:11 Respiratory: the patient does not display signs of respiratory distress, Respirations: normal, no use of accessory muscles. Vital Signs: 20:00 BP 101 / 54; Pulse 85; Resp 18 A; Temp 98.0(O); Pulse Ox 100% on R/A; Weight 99.79 kg as6 (R); Height 5 ft. 3 in. (160.02 cm) (R); Pain 9/10; 22:27 Pulse 80; Resp 18; Pulse Ox 100% on R/A; tw5 20:00 Body Mass Index 38.97 (99.79 kg, 160.02 cm) as6 MDM: 21:54 Patient medically screened. cp 22:13 Differential diagnosis: dental caries, dental abscess, pericoronitis, cp gingivostomatitis. Data reviewed: vital signs, nurses notes. Administered Medications: 22:17 Drug: Hydrocodone-Acetaminophen (7.5 mg-325 mg) 1 tabs Route: PO; tw5 22:28 Follow up: Response: No adverse reaction; Medication administered at discharge.; RASS: tw5 Alert and Calm (0) 22:18 Drug: Ibuprofen 800 mg Route: PO; tw5 22:28 Follow up: Response: No adverse reaction; Medication administered at discharge.; RASS: tw5 Alert and Calm (0) Disposition: 03/08 05:41 Co-signature as Attending Physician, Matt Daly MD. mh7 Disposition Summary: 03/07/21 22:14 Discharge Ordered Location: Home cp Problem: new cp Symptoms: have improved cp Condition: Stable cp Diagnosis - Disorder of teeth and supporting structures, unspecified cp Followup: cp - With: Inder Hereida DDS - When: 2 - 3 days - Reason: Recheck today's complaints Discharge Instructions: - Discharge Summary Sheet cp - Dental Pain cp Forms: - Medication Reconciliation Form cp - Thank You Letter cp - Antibiotic Education cp - Prescription Opioid Use cp Prescriptions: - Ibuprofen 800 mg Oral Tablet - take 1 tablet by ORAL route every 8 hours As needed take with food; 30 tablet; cp Refills: 0, Product Selection Permitted - Tramadol 50 mg Oral Tablet - take 1 tablet by ORAL route every 8 hours as needed; 12 tablet; Refills: 0, cp Product Selection Permitted Signatures: John Barrett PA PA cp Holmes, Maurice, MD MD mh7 Sylvia Rodriguez 5 Sabino Ramos RN RN as6
--- NOTE | 2021-03-07 22:15 | ER ---
Nurse's Notes [facility] Name: Jyoti Zelaya Age: 25 yrs Sex: Female : 1995 Arrival Date: 03/07/2021 Time: 19:27 Bed 11 Private MD: Diagnosis: Disorder of teeth and supporting structures, unspecified Presentation: 03/07 20:00 Chief complaint: Patient states: pt is having pain to right side of face, pt received as6 abx 3 days ago for tooth and pain has been increasing. Coronavirus screen: At this time, the client does not indicate any symptoms associated with coronavirus-19. Ebola Screen: No symptoms or risks identified at this time. Initial Sepsis Screen: Does the patient meet any 2 criteria? No. Patient's initial sepsis screen is negative. Does the patient have a suspected source of infection? No. Patient's initial sepsis screen is negative. Risk Assessment: Do you want to hurt yourself or someone else? Patient reports no desire to harm self or others. Onset of symptoms was March 07, 2021. 20:00 Method Of Arrival: Ambulatory as6 20:00 Acuity: ANDRZEJ 4 as6 Triage Assessment: 20:06 General: Appears uncomfortable, Behavior is calm, cooperative. Pain: Complains of pain as6 in right cheek and right jaw. EENT: Poor dentition noted. Reports pain in right cheek and right jaw. Historical: - Allergies: 20:05 No Known Allergies; as6 - Home Meds: 20:05 None [Active]; as6 - PMHx: 20:05 cysts on ovaries- right side; gallstone; ulcerative colities; as6 - PSHx: 20:05 section; as6 - Immunization history:: Client reports having NOT received the Covid vaccine. - Social history:: Smoking status: Patient reports the use of cigarette tobacco products, smokes one-half pack cigarettes per day. Screenin:18 Abuse screen: Denies threats or abuse. Denies injuries from another. Nutritional tw5 screening: No deficits noted. Tuberculosis screening: No symptoms or risk factors identified. Fall Risk None identified. Assessment: 22:18 General: Reports "The pain has been going on for a couple of days now." Patient states tw5 that she has not seen a dentist for the toothache. Pain: Pain currently is 7 out of 10 on a pain scale. 22:27 Reassessment: Patient appears in no apparent distress at this time. No changes from tw5 previously documented assessment. Patient is alert, oriented x 3, equal unlabored respirations, skin warm/dry/pink. Vital Signs: 20:00 BP 101 / 54; Pulse 85; Resp 18 A; Temp 98.0(O); Pulse Ox 100% on R/A; Weight 99.79 kg as6 (R); Height 5 ft. 3 in. (160.02 cm) (R); Pain 9/10; 22:27 Pulse 80; Resp 18; Pulse Ox 100% on R/A; tw5 20:00 Body Mass Index 38.97 (99.79 kg, 160.02 cm) as6 ED Course: 19:27 Patient arrived in ED. es 20:05 Triage completed. as6 20:06 Arm band placed on. as6 21:54 John Barrett PA is PHCP. cp 21:54 Matt Daly MD is Attending Physician. cp 22:13 Sylvia Rodriguez is Primary Nurse. tw5 22:14 Inder Heredia DDS is Referral Physician. cp 22:27 Patient has correct armband on for positive identification. tw5 22:27 No provider procedures requiring assistance completed. Patient did not have IV access tw5 during this emergency room visit. Administered Medications: 22:17 Drug: Hydrocodone-Acetaminophen (7.5 mg-325 mg) 1 tabs Route: PO; tw5 22:28 Follow up: Response: No adverse reaction; Medication administered at discharge.; RASS: tw5 Alert and Calm (0) 22:18 Drug: Ibuprofen 800 mg Route: PO; tw5 22:28 Follow up: Response: No adverse reaction; Medication administered at discharge.; RASS: tw5 Alert and Calm (0) Outcome: 22:14 Discharge ordered by MD. cp 22:27 Discharged to home ambulatory. tw5 22:27 Condition: good 22:27 Discharge instructions given to patient, Instructed on discharge instructions, follow up and referral plans. medication usage, Demonstrated understanding of instructions, follow-up care, medications, Prescriptions given X 2. 22:28 Patient left the ED. tw5 Signatures: Jailyn Hinojosa John Barrett PA PA cp Wood, Tiffany tw5 Slawson, [place], RN RN as6
[2021-03-07] MEDS ORDERED: HYDROCODONE/APAP 7.5/325 MG TAB ONE (22:16)
[2021-03-07] MEDS ORDERED: IBUPROFEN 400 MG TAB ONE (22:16)
[2021-03-07 23:05] VITALS: BP 101/54; TEMP 98; O2SAT 100
== END 2021-03-07 22:28 | disposition home or self-care (01) ==
LOC: ER 19:24
DX: K08.89 Other specified disorders of teeth and supporting structures (principal); F17.210 Nicotine dependence, cigarettes, uncomplicated
CPT/HCPCS: 99283